=== PATIENT | male | born 1965 | race Caucasian/White ===

== ENCOUNTER 2021-12-11 07:04 | Emergency (ER) | payer BC, SELFPAY ==
[2021-12-11 07:36] VITALS: BP 171/100; PULSE 82; RESP 22; TEMP 36.6; O2SAT 99; BMI 23.0
[2021-12-11 08:30] LABS: PCR FLU A Negative PCR FLU A (Negative); PCR FLU B Negative PCR FLU B (Negative); PCR RSV Negative PCR RSV (Negative)
--- NOTE | 2021-12-11 08:37 | ED.SOB ---
HPI - SOB/Dyspnea General Time Seen by Provider: 08:38 Date Seen: 12/11/21 Chief Complaint: Shortness of Breath/Dyspnea Stated Complaint: Trouble breathing Time Seen by Provider: 12/11/21 08:37 Source: patient, RN notes reviewed and old records reviewed Mode of arrival: ambulatory Limitations: no limitations History of Present Illness HPI Narrative: Patient is a 56-year-old male with history of COPD and continued tobacco use who comes to the emergency room for evaluation regarding increasing shortness of breath and cough. Patient notes the onset of some shortness of breath on ThursdayDecember 08. On December 09 he started coughing. The cough has been fairly nonproductive at this point. He notes that he has developed a headache from coughing so much. But Tessalon Perles which she had at home seems to help. He has not developed any fevers. He feels like this is COPD. He did test negative for COVID on a home test yesterday. Patient denies vomiting diarrhea lower extremity edema or calf tenderness. Patient has been doing home nebulizers and made these have given him some transient relief. He works at [employer] Previous Rx's Medication Instructions Recorded budesonide 160 mcg-glycopyr 9 2 inh inhalation BID #10.7 grams 09/30/21 mcg-formot 4.8 mcg/actuation HFA inhaler (Breztri Aerosphere) albuterol sulfate 90 mcg/actuation 2 puff inhalation Q4H PRN COPD 12/05/21 aerosol inhaler #8.5 grams metoprolol succinate 100 mg 100 mg PO QDAY #90 tabs 12/05/21 tablet,extended release 24 hr azithromycin 250 mg tablet 250 mg PO DAILY #6 tabs 12/11/21 (Zithromax Z-Farzaneh) prednisone 20 mg tablet 20 mg PO BID 5 days #10 tabs 12/11/21 Allergies Allergy/AdvReac Type Severity Reaction Status Date / Time No Known Drug Allergies Allergy Verified 12/11/21 07:39 Review of Systems Status of ROS: Reports: 10 or more systems reviewed and unremarkable except as noted in History and below Const: Denies: fever or chills ENMT: Denies: throat pain or difficulty swallowing Cardio: Reports: shortness of breath with exertion; Denies: chest pain or swelling of feet/ankles Resp: Reports: shortness of breath and cough; Denies: wheezing GI: Denies: abdominal pain, nausea, vomiting, diarrhea or difficulty swallowing : Denies: painful urination Musculo: Denies: extremity swelling Integ/Breast: Denies: rash Neuro: Reports: headache Allergy/Immuno: Denies: wheezing [facility] Medical History COPD (chronic obstructive pulmonary disease) Exam Narrative: Exam Narrative: From 2019 clinic note:Medical Problems: Nephrolithiasis Alcohol abuse Rib fracture Dental abscess COPD (chronic obstructive pulmonary disease) Hypertension Left leg weakness Tension headache Paresthesia of both feet Generalized anxiety disorder Tobacco abuse Const: Vital Signs, click to edit/add: Vital Signs - 24 hr 12/11/21 07:36 Temperature 97.9 F Pulse Rate [Right Pulse Oximeter] 82 Respiratory Rate 22 Blood Pressure [Ri ght Upper Arm] 171/100 H Pulse Oximetry 99 Oxygen Delivery Me thod Room Air Patient is alert and oriented. Occasional cough. Oxygen saturation 99%. Nontoxic in appearance. Oral cavity with moist mucous membranes. Neck is supple without lymphadenopathy. Heart with regular rate and rhythm no murmur rub. Lungs sounds show some are somewhat diminished in the bases but there are no crackles. At this time or wheezing. Abdomen soft. Lower extremities without edema. Documenting provider has reviewed patient's vital signs: yes Course Course Hospital Course: Currently awaiting COVID PCR. If that is negative I have spoken to patient about antibiotics and steroids. Vital Signs Vital signs: Initial Vital Signs Temperature 97.9 F 12/11/21 07:36 Temperature Source Temporal Artery Scan 12/11/21 07:36 Pulse Rate 82 12/11/21 07:36 Respiratory Rate 22 12/11/21 07:36 Blood Pressure 171/100 H 12/11/21 07:36 Blood Pressure Mean 123 12/11/21 07:36 Blood Pressure Position Sitting 12/11/21 07:36 Pulse Oximetry 99 12/11/21 07:36 Oxygen Delivery Method 12/11/21 07:36 Vital Signs Temperature 97.9 F 12/11/21 07:36 Pulse Rate 82 12/11/21 07:36 Respiratory Rate 22 12/11/21 07:36 Blood Pressure 171/100 H 12/11/21 07:36 Pulse Oximetry 99 12/11/21 07:36 Oxygen Delivery Method 12/11/21 07:36 Temperature 97.9 F 12/11/21 07:36 Pulse Rate 82 12/11/21 07:36 Respiratory Rate 22 12/11/21 07:36 Blood Pressure 171/100 H 12/11/21 07:36 Pulse Oximetry 99 12/11/21 07:36 Oxygen Delivery Method 12/11/21 07:36 MDM - SOB/Dyspnea MDM Narrative Medical decision making narrative: 1. COPD exacerbation-COVID negative at this time. Will place patient on Z-Farzaneh as well as prednisone 20 mg p.o. b.i.d. x5 days. Continue to do home nebulizers. 2. Disposition- home in off work today. Note to allow him to return for tomorrow. Return to the emergency room for worsening symptoms. Medical Records Attestation: I reviewed the patient's medical records. Lab Data Attestation: I reviewed the patient's lab results. Labs: Lab Results 12/11/21 Range/Units 07:35 SARS-CoV-2 (PCR) Negative SARS-CoV-2 (Negative) Influenza Type A (PCR) Negative PCR FLU A (Negative) Influenza Type B (PCR) Negative PCR FLU B (Negative) RSV (PCR) Negative PCR RSV (Negative) Discharge Plan Discharge Clinical Impression: COPD exacerbation Patient Disposition: Home, Self-Care Condition: Unchanged Additional Instructions: Start antibiotic Zithromax today. Also start prednisone as your steroid. Continue nebulizers at home. No work today. A note provided allows you to go back to work tomorrow. Seek medical attention for worsening symptoms. Return to the ER as needed. Prescriptions: New azithromycin [Zithromax Z-Farzaneh] 250 mg tablet 250 mg PO DAILY Qty: 6 0RF Taper: Z-FARZANEH 500 mg Q24H for 1 Day and 0 Hour 250 mg Q24H for 4 Days and 0 Hour Rx Instructions: For 250 mg dose pack: take 500 mg today (day 1), then 250 mg for 4 days (days 2-5) prednisone 20 mg tablet 20 mg PO BID 5 Days Qty: 10 0RF No Action Shannoni Aerosphere 160-9-4.8 mcg/actuation HFA aerosol inhaler 2 inh inhalation BID Qty: 10.7 5RF metoprolol succinate 100 mg tablet extended release 24 hr 100 mg PO QDAY Qty: 90 0RF albuterol sulfate 90 mcg/actuation HFA aerosol inhaler 2 puff inhalation Q4H PRN (Reason: COPD) Qty: 8.5 0RF Stand Alone Forms: [facility] Info Instructions
[2021-12-11 08:47] LABS: SARS PCR* Negative SARS-CoV-2 (Negative)
--- OUTSIDE RECORDS SUMMARY | 2021-12-11 09:05 | XMS_ITS | Clinical Summary ---
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 Hypokalemia Calcium Citrate-Vitamin Take by mouth. 180 Tab 0 10/18/2015 Active D3 500 mg calcium -400 Take 2 tabs unit chewIndications: daily Decreased bone density triamcinolone 0.5% Apply topically 15 g 1 10/18/2015 Active (ARISTOCORT) 0.5 % to affected creamIndications: Skin area(s) 2 times rash daily. Use as needed on ankles. Do not use on face, axilla or groin. NebulizerIndications: Nebulizer, 1 Device 0 04/01/2016 Active COPD exacerbation (HC), disposable neb Simple chronic bronchitis kit x 4, (HC) reuseable neb kit x 1, mask x 1, filters x 1. Length of need: 99 months ibandronate (BONIVA) 150 Take 1 tablet 3 tablet 3 04/29/2016 Active mg tabletIndications: by mouth every Decreased bone density 4 weeks. Take on empty stomach with full glass of water. Do not lie down for 1 hr. albuterol-ipratropium Inhale 3 mL via 1 box 1 08/28/2016 Active (DUONEB) (2.5-0.5 mg) in a nebulizer 4 3 mL NEBULIZATION times daily if solutionIndications: COPD needed. exacerbation (HC) tiotropium (SPIRIVA) 18 Inhale 18 mcg 90 capsule 3 10/14/2016 Active mcg inhalation by mouth once capsuleIndications: daily. Chronic obstructive pulmonary disease, unspecified COPD type (HC) predniSONE (DELTASONE) 10 Take 2 tablets 6 tablet 0 8 Active mg tabletIndications: for 2 days then COPD exacerbation (HC) 1 tablet for 2 days. carvedilol (COREG) 6.25 Take 1 tablet 180 tablet 2 03/04/2017 Active mg tabletIndications: SOB (6.25) twice a (shortness of breath), day with food Other cardiomyopathy (HC) fluticasone Inhale 1 Puff 1 Inhaler 0 03/03/2017 Act christa furoate-vilanterol (BREO by mouth once ELLIPTA) 100-25 mcg/dose daily. inhalerIndications: Stage 3 severe COPD by GOLD classification (HC) cholecalciferol (VITAMIN Take 1 capsule 90 capsule 3 8 Active D) 1,000 unit by mouth once capsuleIndications: daily. Vitamin D deficiency buPROPion (WELLBUTRIN SR) TAKE 1 TABLET 60 tablet 1 04/21/2017 Active 150 mg Sustained-Release BY MOUTH DAILY tabletIndications: FOR 3 DAYS. Tobacco dependence INCREASE TO 2 TIMES DAILY. STOP SMOKING AFTER 1 WEEK predniSONE (DELTASONE) 20 Start 3 tabs 20 tablet 0 04/24/2017 Active mg tabletIndications: daily x 3 days, COPD exacerbation (HC) then 2 tab daily x 3 days then 1 tab daily x 3 days then 1/2 daily x 4 days. roflumilast (DALIRESP) Take 500 mcg by 90 tablet 3 06/02/2017 Active 500 mcg mouth once tabletIndications: COPD, daily. frequent exacerbations (HC) hydroCHLOROthiazide TAKE 1 TABLET 90 tablet 1 06/23/2017 Active (HCTZ) 25 mg BY MOUTH EVERY tabletIndications: DAY Hypertension predniSONE (DELTASONE) 20 3 tabs x 2 days 13 tablet 0 07/15/19 18 Active mg tabletIndications: then 2 tabs x 2 COPD exacerbation (HC) days then 1 tab x 2 days then 1/2 tab x 2 days. losartan (COZAAR) 25 mg Take 1 tablet 90 tablet 0 10/27/2017 Active tabletIndications: by mouth once Hypertension, unspecified daily. type busPIRone 7.5 mg TAKE 1 TABLET 180 tablet 0 01/05/2018 Active tabletIndications: BY MOUTH TWICE Anxiety DAILY VENTOLIN HFA 90 INHALE 2 PUFFS 18 g 3 01/05/2018 Active mcg/actuation BY MOUTH EVERY inhalerIndications: 4 HOURS Chronic obstructive NEEDED FOR pulmonary disease, SHORTNESS OF unspecified COPD type BREATH (HC) Active Problems Problem Noted Date Abnormal echocardiogram 11/03/2016 Overview: cardiomyopathy with EF 45-50% on echocar diogram 09/2016. Had cardiology consult, negative stress testing. Needs follow up with Cardiology with echocardiogram in 1 year. Fracture of rib 04/01/2016 Calculus of kidney 04/01/2016 Anxiety 07/10/2015 Alcohol abuse, in remission 06/08/2015 Hypertension 12/21/2012 COPD (chronic obstructive pulmonary disease) 3 Immunizations Name Administration Dates Next Due Influenza, IIV3 (Age >=3 years) 11/23/2012 Influenza, IIV4 11/05/2016, 10/18/2015, 11/30/2014, 01/09/2014 Pneumococcal Poly,23-Valent 11/15/2015 (Pneumovax) Pneumococcal conj 13-Valent (Prevnar 11/30/2014 13) Polio Virus, Unspecified 06/19/1978 Tdap 07/05/2013 Family History Medical History Relation Name Comments Cancer-breast Mother age 60 Hypertension Mother Relation Name Status Comments Mother Social History Tobacco Use Types Packs/Day Years Used Date Current Every Day Smoker Cigarettes 0.5 30 Smokeless Tobacco: Never Used Tobacco Cessation: Counseling Given: Yes Alcohol Use Standard Drinks/Week Comments No 0 (1 standard drink = 0.6 oz pure alcoho l) prior alcohol abuse, sober now Alcohol Habits Answer Date Recorded How often do you have a drink containing Not asked alcohol? How many drinks containing alcohol do Not asked you have on a typical day when you are drinking? How often do you have six or more drinks Not asked on one occasion? Comment: prior alcohol abuse, sober now 7 Sex Assigned at Date Recorded Not on file Obstetrics History Last Filed Vital Signs Vital Sign Reading Time Taken Comments Blood Pressure 122/80 06/02/2017 12:53 PM CDT Pulse 88 06/02/2017 12:53 PM CDT Temperature 36.5 ??C (97.7 ??F) 06/02/2017 12:53 PM CDT Respiratory Rate 18 10/14/2016 2:39 PM CDT Oxygen Saturation 96% 06/02/2017 12:53 PM CDT Inhaled Oxygen Concentration - - Weight 77.1 kg (170 lb) 06/02/2017 12:53 PM CDT Height 179.8 cm (5' 10.79) 03/18/2017 8:07 AM [facility] Body Mass Index 23.85 03/18/2017 8:07 AM N[facility] Plan of Treatment Health Maintenance Due Date Last Done Comments COVID-19 vaccine series (#1) 01/24/1966 Hepatitis C screening for age 0607/25/1984 18-79 Colonoscopy through age 75 07/26/2011 Zoster (shingles) series for age 0607/25/2016 50+ (1 of 2) Depression screening for age 12+ 11/05/2017 11/05/2016, 07/2015, 10/18/2015, Additional history exists BMI (ht and wt on same day) for 03/18/2018 03/18/2017, 12/11, age 18+ 11/05/2016, Additional history exists Influenza for age 50-64 10/10/2021 11/05/2016, 10/18/2015, 11/30/2014, Additional history exists Lipids for age 45-75 01/05/2022 01/05/2017, 01/28/2016, 03/08/2015, Additional history exists Tetanus booster 07/06/2023 07/05/2013, 05[facility]11/2007 [facility] Tdap Completed 07/05/2013 Results Not on filefrom Last 3 Months Insurance Payer Benefit Plan / Subscriber ID Effective Dates Phone Addre ss Type Group [employer]UE [employer] OF [id number] 2014-Present [address] [address] [place] [address] Justin Suarez Workers Comp Self 1965 [address] (Home) [place], [place] [phone] (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 Vlad Reyes MD Orthopedics Surgery - Orthopedic 11/02/12
== END 2021-12-11 09:12 | disposition home or self-care (01) ==
LOC: ED 09:03
PROVIDERS: Emergency Provider Family Medicine; PCP Family Medicine
DX: J44.1 Chronic obstructive pulmonary disease with (acute) exacerbation (principal); F17.200 Nicotine dependence, unspecified, uncomplicated; Z20.822 Contact with and (suspected) exposure to COVID-19
CPT/HCPCS: 87502; 87634; 87635; 99283

== ENCOUNTER 2022-01-08 07:31 | Emergency (ER) | payer BC, SELFPAY ==
[2022-01-08] VITALS (37 sets, daily range): BP systolic 110–182; BP diastolic 55–108; PULSE 62–86; RESP 35–37; TEMP 37.1; O2SAT 94–100; BMI 23.0
--- NOTE | 2022-01-08 07:56 | CRLHL7_ITS ---
For Patients: As a result of the Cures Act, medical imaging exams and procedure reports are released immediately into your electronic medical record. You may view this report before your referring provider. If you have questions, please contact your health care provider. INDICATION: COPD exacerbation. TECHNIQUE: Chest 2 views. COMPARISON: 05/02/2021. FINDINGS: Cardiovascular and mediastinum: Heart size and vasculature are normal in caliber and appearance. Lungs and pleural spaces: Lungs are hyperinflated but otherwise clear. No pleural effusion and no pneumothorax. Bones and soft tissues: No significant findings. IMPRESSION: Lung hyperinflation consistent with COPD. No sign of pneumonia or other acute abnormality. Dictated by Jose Manuel Hernandez MD @ 01/08/2022 8:38:02 AM (Electronically Signed)
--- NOTE | 2022-01-08 07:58 | ED_ITS ---
HPI - General Adult General Chief complaint: Shortness of Breath/Dyspnea Stated complaint: Trouble breathing, COPD history Time Seen by Provider: 01/08/22 07:53 Source: patient Mode of arrival: ambulatory Limitations: no limitations History of Present Illness HPI narrative: Justin is a 56-year-old male past medical history includes COPD, tobacco abuse, presents emerged department via private car with shortness of breath. Patient states he got up early this morning around 3:30 a.m., was outside taking his dog for walking he had increased difficulty with breathing, chest tightness, denies any chest pain, minor cough, has not had any fevers or chills or any sick contacts. He thought it got worse after he got exposed to cold went, he went to work this morning Rashid, co-worker noticed that he was having increased work of breathing, he was feeling lightheaded, and that his lungs hurt patient denies any cardiac history, no nausea vomiting, no diarrhea or abdominal pain, no myalgias arthralgias. He was here at the beginning the month for similar symptoms and COPD exacerbation, prior to this he has not had any difficulty over the last year. Related Data Home Medications Medication Instructions Recorded Confirmed aspirin 81 mg tablet,delayed 81 mg PO DAILY 01/17/22 02/06/22 release calcium citrate 200 mg 2 tab PO DAILY 01/17/22 02/06/22 calcium-vitamin D3 6.25 mcg (250 unit) tablet cholecalciferol (vitamin D3) 25 1,000 unit PO DAILY 01/17/22 02/06/22 mcg (1,000 unit) tablet hydrochlorothiazide 25 mg tablet 25 mg PO DAILY 01/17/22 02/06/22 prednisone 50 mg tablet 50 mg PO QDAY PRN 02/06/22 02/06/22 Previous Rx's Medication Instructions Recorded budesonide 160 mcg-glycopyr 9 2 inh inhalation BID #10.7 grams 09/30/21 mcg-formot 4.8 mcg/actuation HFA inhaler (Breztri Aerosphere) metoprolol succinate 100 mg 100 mg PO QDAY #90 tabs 12/05/21 tablet,extended release 24 hr albuterol sulfate 90 mcg/actuation 2 puff inhalation Q4H PRN COPD 01/08/22 aerosol inhaler #8.5 grams ipratropium 0.5 mg-albuterol 3 mg 3 ml inhalation TID #180 mL 01/17/22 (2.5 mg base)/3 mL nebulization soln tiotropium bromide 2.5 2 puff inhalation QAM #4 grams 01/17/22 mcg/actuation mist for inhalation (Spiriva Respimat) fluocinolone 0.01 % topical 1 applic topical BID #60 mL 01/21/22 solution clobetasol 0.05 % scalp solution 1 applic topical QDAY #50 mL 01/30/22 amoxicillin 875 mg tablet 875 mg PO BID #14 tabs 02/06/22 Allergies Allergy/AdvReac Type Severity Reaction Status Date / Time No Known Drug Allergies Allergy Unverified 02/06/22 09:37 Review of Systems Status of ROS: Reports: 10 or more systems reviewed and unremarkable except as noted in History and below [facility] Medical History (Updated 02/11/22 @ 01:49 by Los Flower MD) Alcohol abuse Calculus of kidney Community acquired pneumonia COPD (chronic obstructive pulmonary disease) Dental abscess Fracture of rib Generalized anxiety disorder (07/10/15) Hypertension Paresthesia of both feet Scalp psoriasis Tension headache Tobacco abuse Social History (Updated 02/11/22 @ 01:50 by Los Flower MD) Narrative: Smoker Smoking Status: Current every day smoker What tobacco products do you use: cigarettes Smoking packs per day: 0.5 Smoking cigarettes per day: 10.0 Years smoked: 20 Smoking pack-years: 10.00 Do you use any of these nicotine containing products: None Second hand tobacco smoke exposure: No How often do you have a drink containing alcohol: 2-4 times a month How many standard drinks containing alcohol do you have on a typical day: 5 or 6 How often do you have six or more drinks on one occasion: Weekly AUDIT-C Alcohol total score: 7 Non-prescribed substance use: denies use Little interest or pleasure in doing things: not at all Feeling down, depressed, or hopeless: not at all service: No Exam Narrative: Exam Narrative: General: No obvious distress, sitting comfortably, nontoxic in appearance HEENT: Tympanic membranes within normal limits, oropharynx clear moist Neck: Supple full range of motion Lungs: Diminished breath sounds throughout, mild expiratory wheezes throughout all lung wang, tachypnea noted Heart: Normal sinus rhythm, S1-S2 Abdomen: Soft nontender, bowel sounds present Muscle skeletal: No lower extremity edema, +5 strength upper lower extremities :Neuro alert awake and oriented x3 Const: Vital Signs, click to edit/add: Vital Signs - 24 hr 01/08/22 07:38 Temperature 98.8 F Pulse Rate [Apical ] 75 Respiratory Rate 37 H Blood Pressure [Ri ght Upper Arm] 123/83 Pulse Oximetry 98 Oxygen Delivery Me thod Room Air Course Course Hospital Course: 7:45 AM: AIDET performed. Workup will include IM dose Decadron 10 mg, will give him a DuoNeb breathing treatment, will obtain basic labs CBC, CMP, point of care troponin, COVID/influenza/RSV nasal pharyngeal swab, EKG and two view chest x- ray, suspect COPD exacerbation, likely discharge with steroid burst give or take antibiotics based on his lab and imaging results. Dr. Hoffman to follow up on lab and imaging results. Vital Signs Vital signs: Initial Vital Signs Temperature 98.8 F 01/08/22 07:38 Temperature Source Temporal Artery Scan 01/08/22 07:38 Pulse Rate 75 01/08/22 07:38 Pulse Rhythm 01/08/22 07:38 Respiratory Rate 37 H 01/08/22 07:38 Blood Pressure 123/83 01/08/22 07:38 Blood Pressure Mean 96 01/08/22 07:38 Blood Pressure Position Supine 01/08/22 07:38 Pulse Oximetry 98 01/08/22 07:38 Oxygen Delivery Method 01/08/22 07:38 Vital Signs Temperature 98.8 F 01/08/22 07:38 Pulse Rate 75 01/08/22 07:38 Respiratory Rate 37 H 01/08/22 07:38 Blood Pressure 123/83 01/08/22 07:38 Pulse Oximetry 98 01/08/22 07:38 Oxygen Delivery Method 01/08/22 07:38 Temperature 98.8 F 01/08/22 07:38 Pulse Rate 74 01/08/22 10:46 Respiratory Rate 35 H 01/08/22 08:00 Blood Pressure 126/86 01/08/22 10:46 Pulse Oximetry 98 01/08/22 10:46 Oxygen Delivery Method 01/08/22 08:00 Medical Decision Making Lab Data Labs: Lab Results 01/08/22 01/08/22 01/08/22 Range/Units 07:48 08:25 08:25 WBC 8.54 (4.50-11.00) K/uL RBC 4.13 L (4.30-5.90) m/uL Hgb 13.4 L (13.5-17.5) gm/dL Hct 38.5 (37.0-53.0) % MCV 93 (80-100) fL MCH 32 (26-34) pg MCHC 35 (32-36) gm/dL RDW Coeff of Lidia 12.9 (11.5-15.5) % Plt Count 153 (140-440) K/uL Neut % (Auto) 78.8 H (42.0-72.0) % Lymph % (Auto) 11.4 L (20-44) % [place] % (Auto) 8.0 (0.0-11.0) % Eos % (Auto) 1.2 (0.0-7.0) % Baso % (Auto) 0.4 (0.0-3.0) % Neut # (Auto) 6.70 (1.7-7.0) K/uL Lymph # (Auto) 1.00 (0.90-2.90) K/uL [place] # (Auto) 0.70 (0.00-0.90) K/UL Eos # (Auto) 0.10 (0.00-0.50) K/uL Baso # (Auto) 0.03 (0.00-0.30) K/uL Abs Immat Gran (auto) 0.02 (0.00-0.30) K/uL Imm/Tot Granulo (auto) 0.2 % Sodium 139 (135-149) mmol/L Potassium 3.2 L (3.6-5.1) mmol/L Chloride 104 (96-114) mmol/L Carbon Dioxide 25 (20-32) mmol/L BUN 22 (7-30) mg/dL Creatinine 1.1 (0.5-1.5) mg/dL Estimated Creat Clear 80.32 Estimated GFR 79 ml/min Glucose 105 (60-115) mg/dL Calcium 9.0 (8.4-10.6) mg/dL Total Bilirubin 0.9 (0.1-1.5) mg/dL AST 51 H (12-35) U/L ALT 52 H (4-50) U/L Alkaline Phosphatase 83 (40-150) U/L Troponin I (0.01-0.04) ng/mL Total Protein 7.5 (6.0-8.3) g/dL Albumin 4.6 (3.3-5.0) g/dL SARS-CoV-2 (PCR) Negative SARS-CoV-2 (Negative) Influenza Type A (PCR) Negative PCR FLU A (Negative) Influenza Type B (PCR) Negative PCR FLU B (Negative) RSV (PCR) Negative PCR RSV (Negative) 01/08/22 01/08/22 Range/Units 08:25 09:49 WBC (4.50-11.00) K/uL RBC (4.30-5.90) m/uL Hgb (13.5-17.5) gm/dL Hct (37.0-53.0) % MCV (80-100) fL MCH (26-34) pg MCHC (32-36) gm/dL RDW Coeff of Lidia (11.5-15.5) % Plt Count (140-440) K/uL Neut % (Auto) (42.0-72.0) % Lymph % (Auto) (20-44) % [place] % (Auto) (0.0-11.0) % Eos % (Auto) (0.0-7.0) % Baso % (Auto) (0.0-3.0) % Neut # (Auto) (1.7-7.0) K/uL Lymph # (Auto) (0.90-2.90) K/uL [place] # (Auto) (0.00-0.90) K/UL Eos # (Auto) (0.00-0.50) K/uL Baso # (Auto) (0.00-0.30) K/uL Abs Immat Gran (auto) (0.00-0.30) K/uL Imm/Tot Granulo (auto) % Sodium (135-149) mmol/L Potassium (3.6-5.1) mmol/L Chloride (96-114) mmol/L Carbon Dioxide (20-32) mmol/L BUN (7-30) mg/dL Creatinine (0.5-1.5) mg/dL Estimated Creat Clear Estimated GFR ml/min Glucose (60-115) mg/dL Calcium (8.4-10.6) mg/dL Total Bilirubin (0.1-1.5) mg/dL AST (12-35) U/L ALT (4-50) U/L Alkaline Phosphatase (40-150) U/L Troponin I 0.01 0.01 (0.01-0.04) ng/mL Total Protein (6.0-8.3) g/dL Albumin (3.3-5.0) g/dL SARS-CoV-2 (PCR) (Negative) Influenza Type A (PCR) (Negative) Influenza Type B (PCR) (Negative) RSV (PCR) (Negative) Discharge Plan Discharge Clinical Impression: COPD (chronic obstructive pulmonary disease) Patient Disposition: Home, Self-Care Condition: Improved Additional Instructions: REST, LIGHT ACTIVITY, FLUIDS, CONTINUE HOME MEDS. UPDATE PRIMARY CARE IN THE NEXT 48 HOURS. RETURN TO ED SOONER PROBLEMS OR CONCERNS Off work for 2 days Activity Level: Light activity Discharge Diet: Regular Prescriptions: No Action calcium citrate-vitamin D3 200 mg-6.25 mcg (250 unit) tablet 2 tab PO DAILY cholecalciferol (vitamin D3) 25 mcg (1,000 unit) tablet 1,000 unit PO DAILY aspirin 81 mg tablet,delayed release (DR/EC) 81 mg PO DAILY hydrochlorothiazide 25 mg tablet 25 mg PO DAILY Spiriva Respimat 2.5 mcg/actuation mist 2 puff inhalation QAM Qty: 4 5RF ipratropium-albuterol 0.5 mg-3 mg(2.5 mg base)/3 mL solution for nebulization 3 ml inhalation TID Qty: 180 3RF prednisone 50 mg tablet 50 mg PO QDAY PRN amoxicillin 875 mg tablet 875 mg PO BID Qty: 14 0RF Breztri Aerosphere 160-9-4.8 mcg/actuation HFA aerosol inhaler 2 inh inhalation BID Qty: 10.7 5RF metoprolol succinate 100 mg tablet extended release 24 hr 100 mg PO QDAY Qty: 90 0RF albuterol sulfate 90 mcg/actuation HFA aerosol inhaler 2 puff inhalation Q4H PRN (Reason: COPD) Qty: 8.5 2RF fluocinolone 0.01 % solution 1 applic topical BID Qty: 60 2RF clobetasol 0.05 % solution 1 applic topical QDAY Qty: 50 5RF Follow Up/Referrals: Los Flower MD [Primary Care Provider] - Stand Alone Forms: MyHealth Info Instructions
[2022-01-08] MEDS: dexAMETHasone 10 MG/ML inj IM (08:12)
[2022-01-08] MEDS: IPRAT-ALBUT 0.5-2.5 MG/3 ML NEB 1 NEB IH (08:13)
[2022-01-08 08:36] LABS: PCR FLU A Negative PCR FLU A (Negative); PCR FLU B Negative PCR FLU B (Negative); PCR RSV Negative PCR RSV (Negative)
[2022-01-08 08:38] LABS: SARS PCR* Negative SARS-CoV-2 (Negative)
[2022-01-08 08:39] LABS: Basophils Absolute Auto 0.03 K/uL (0.00-0.30); Basophils Percent Auto 0.4 % (0.0-3.0); Eosinophils Percent Auto 1.2 % (0.0-7.0); Hematocrit 38.5 % (37.0-53.0); Hemoglobin* 13.4 gm/dL (13.5-17.5); Immature Granulocytes Abs Auto 0.02 K/uL (0.00-0.30); Immature Granulocytes Pct Auto 0.2 %; Lymphocytes Percent Auto 11.4 % (20-44); Mean Corpuscular HGB Conc 35 gm/dL (32-36); Mean Corpuscular Hemoglobin 32 pg (26-34); Mean Corpuscular Volume 93 fL (80-100); Neutrophils Percent Auto 78.8 % (42.0-72.0); Platelet Count* 153 K/uL (140-440); RDW Coefficient of Variation % 12.9 % (11.5-15.5); Red Blood Count 4.13 m/uL (4.30-5.90); White Blood Count* 8.54 K/uL (4.50-11.00)
[2022-01-08 08:40] LABS: Slide Review Reflex No
[2022-01-08 08:52] LABS: Albumin* 4.6 g/dL (3.3-5.0); Chloride* 104 mmol/L (96-114); Sodium* 139 mmol/L (135-149)
[2022-01-08 08:53] LABS: Potassium* 3.2 mmol/L (3.6-5.1)
[2022-01-08 08:55] LABS: Alkaline Phosphatase* 83 U/L (40-150); Aspartate Amino Transferase* 51 U/L (12-35); Bilirubin Total* 0.9 mg/dL (0.1-1.5); Blood Urea Nitrogen* 22 mg/dL (7-30); Carbon Dioxide* 25 mmol/L (20-32); Creatinine* 1.1 mg/dL (0.5-1.5); Est. Creatinine Clearance* 80.32; Estimated Glomerular Filt Rate 79 ml/min; Total Protein* 7.5 g/dL (6.0-8.3)
[2022-01-08 08:56] LABS: Alanine Aminotransferase* 52 U/L (4-50); Glucose* 105 mg/dL (60-115)
[2022-01-08 09:08] LABS: Troponin I* 0.01 ng/mL (0.01-0.04)
--- OUTSIDE RECORDS SUMMARY | 2022-01-08 09:15 | XMS_ITS | Clinical Summary ---
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 Body Mass Index 23.85 03/18/2017 8:07 AM SHEET TESTER Plan of Treatment Health Maintenance Due Date Last Done Comments COVID-19 vaccine series (#1) 01/24/1967 HIV for age 15-65 1981 Hepatitis C screening for age 0607/25/1984 18-79 [...] booster 07/06/2023 07/05/2013, [facility]11[facility] Tdap Completed 07/05/2013 Results Not on filefrom Last 3 Months Insurance Payer Benefit Plan / Subscriber ID Effective Dates Phone Addre ss Type Group BLUE [employer]OSS BL[employer] OF [id number] 2014-Present [address] [address] [place] [address] Justin Suarez Workers Comp Self 1965 [address] (Home) [place], [place] [phone] (Work) 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 Vlad Reyes MD Orthopedics Surgery - Orthopedic 11/02/12
[2022-01-08 10:28] LABS: Troponin I* 0.01 ng/mL (0.01-0.04)
--- NOTE | 2022-01-08 10:48 | ED.GENADULT ---
HPI - General Adult General Time Seen by Provider: 10:48 Date Seen: 01/08/22 Chief complaint: Shortness of Breath/Dyspnea Stated complaint: Trouble breathing, COPD history Time Seen by Provider: 01/08/22 07:53 Source: patient Mode of arrival: ambulatory Limitations: no limitations Related Data Previous Rx's Medication Instructions Recorded budesonide 160 mcg-glycopyr 9 2 inh inhalation BID #10.7 grams 09/30/21 mcg-formot 4.8 mcg/actuation HFA inhaler (Breztri Aerosphere) metoprolol succinate 100 mg 100 mg PO QDAY #90 tabs 12/05/21 tablet,extended release 24 hr azithromycin 250 mg tablet 250 mg PO DAILY #6 tabs 12/11/21 (Zithromax Z-Ramesh) prednisone 20 mg tablet 20 mg PO BID 5 days #10 tabs 12/11/21 albuterol sulfate 90 mcg/actuation 2 puff inhalation Q4H PRN COPD 01/08/22 aerosol inhaler #8.5 grams Allergies Allergy/AdvReac Type Severity Reaction Status Date / Time No Known Drug Allergies Allergy Verified 01/08/22 07:38 [facility] Medical History COPD (chronic obstructive pulmonary disease) Social History Smoking Status: Current every day smoker What tobacco products do you use: cigarettes Smoking packs per day: 0.5 Smoking cigarettes per day: 10.0 Years smoked: 20 Smoking pack-years: 10.00 Do you use any of these nicotine containing products: None Second hand tobacco smoke exposure: No How often do you have a drink containing alcohol: 2-4 times a month How many standard drinks containing alcohol do you have on a typical day: 5 or 6 How often do you have six or more drinks on one occasion: Weekly AUDIT-C Alcohol total score: 7 Non-prescribed substance use: denies use service: No Exam Const: Vital Signs, click to edit/add: Vital Signs - 24 hr 01/08/22 07:38 01/08/22 08:00 Temperature 98.8 F Pulse Rate [Apical ] 75 73 Respiratory Rate 37 H 35 H Blood Pressure [Ri ght Upper Arm] 123/83 182/90 H Pulse Oximetry 98 96 Oxygen Delivery Me thod Room Air Room Air Course Course Hospital Course: 7:45 AM: AIDET performed. Workup will include IM dose Decadron 10 mg, will give him a DuoNeb breathing treatment, will obtain basic labs CBC, CMP, point of care troponin, COVID/influenza/RSV nasal pharyngeal swab, EKG and two view chest x-ray, suspect COPD exacerbation, likely discharge with steroid burst give or take antibiotics based on his lab and imaging results. Dr. Hoffman to follow up on lab and imaging results. Vital Signs Vital signs: Initial Vital Signs Temperature 98.8 F 01/08/22 07:38 Temperature Source Temporal Artery Scan 01/08/22 07:38 Pulse Rate 75 01/08/22 07:38 Pulse Rhythm 01/08/22 07:38 Respiratory Rate 37 H 01/08/22 07:38 Blood Pressure 123/83 01/08/22 07:38 Blood Pressure Mean 96 01/08/22 07:38 Blood Pressure Position Supine 01/08/22 07:38 Pulse Oximetry 98 01/08/22 07:38 Oxygen Delivery Method 01/08/22 07:38 Vital Signs Temperature 98.8 F 01/08/22 07:38 Pulse Rate 75 01/08/22 07:38 Respiratory Rate 37 H 01/08/22 07:38 Blood Pressure 123/83 01/08/22 07:38 Pulse Oximetry 98 01/08/22 07:38 Oxygen Delivery Method 01/08/22 07:38 Temperature 98.8 F 01/08/22 07:38 Pulse Rate 74 01/08/22 10:46 Respiratory Rate 35 H 01/08/22 08:00 Blood Pressure 126/86 01/08/22 10:46 Pulse Oximetry 98 01/08/22 10:46 Oxygen Delivery Method 01/08/22 08:00 Medical Decision Making MDM Narrative Medical decision making narrative: Addendum: Please see Dr. Luis lugo initial notes Derrick klein feels markedly better after his dexamethasone and albuterol neb. He continues to have a good O2 sat. He has negative viral studies, negative troponin x2 EKG by my read shows no ischemic change normal sinus rhythm. His chest x-ray looks unremarka . His troponins are negative, EKGs are reassuring, and he feels better. Allow home rest light activity off work for 2 days. Return to proceed primary care at that time, return to ED sooner as needed. Lab Data Labs: Lab Results 01/08/22 01/08/22 01/08/22 Range/Units 07:48 08:25 08:25 WBC 8.54 (4.50-11.00) K/uL RBC 4.13 L (4.30-5.90) m/uL Hgb 13.4 L (13.5-17.5) gm/dL Hct 38.5 (37.0-53.0) % MCV 93 (80-100) fL MCH 32 (26-34) pg MCHC 35 (32-36) gm/dL RDW Coeff of Lidia 12.9 (11.5-15.5) % Plt Count 153 (140-440) K/uL Neut % (Auto) 78.8 H (42.0-72.0) % Lymph % (Auto) 11.4 L (20-44) % [place] % (Auto) 8.0 (0.0-11.0) % Eos % (Auto) 1.2 (0.0-7.0) % Baso % (Auto) 0.4 (0.0-3.0) % Neut # (Auto) 6.70 (1.7-7.0) K/uL Lymph # (Auto) 1.00 (0.90-2.90) K/uL [place] # (Auto) 0.70 (0.00-0.90) K/UL Eos # (Auto) 0.10 (0.00-0.50) K/uL Baso # (Auto) 0.03 (0.00-0.30) K/uL Abs Immat Gran (auto) 0.02 (0.00-0.30) K/uL Imm/Tot Granulo (auto) 0.2 % Sodium 139 (135-149) mmol/L Potassium 3.2 L (3.6-5.1) mmol/L Chloride 104 (96-114) mmol/L Carbon Dioxide 25 (20-32) mmol/L BUN 22 (7-30) mg/dL Creatinine 1.1 (0.5-1.5) mg/dL Estimated Creat Clear 80.32 Estimated GFR 79 ml/min Glucose 105 (60-115) mg/dL Calcium 9.0 (8.4-10.6) mg/dL Total Bilirubin 0.9 (0.1-1.5) mg/dL AST 51 H (12-35) U/L ALT 52 H (4-50) U/L Alkaline Phosphatase 83 (40-150) U/L Troponin I (0.01-0.04) ng/mL Total Protein 7.5 (6.0-8.3) g/dL Albumin 4.6 (3.3-5.0) g/dL SARS-CoV-2 (PCR) Negative SARS-CoV-2 (Negative) Influenza Type A (PCR) Negative PCR FLU A (Negative) Influenza Type B (PCR) Negative PCR FLU B (Negative) RSV (PCR) Negative PCR RSV (Negative) 01/08/22 01/08/22 Range/Units 08:25 09:49 WBC (4.50-11.00) K/uL RBC (4.30-5.90) m/uL Hgb (13.5-17.5) gm/dL Hct (37.0-53.0) % MCV (80-100) fL MCH (26-34) pg MCHC (32-36) gm/dL RDW Coeff of Lidia (11.5-15.5) % Plt Count (140-440) K/uL Neut % (Auto) (42.0-72.0) % Lymph % (Auto) (20-44) % [place] % (Auto) (0.0-11.0) % Eos % (Auto) (0.0-7.0) % Baso % (Auto) (0.0-3.0) % Neut # (Auto) (1.7-7.0) K/uL Lymph # (Auto) (0.90-2.90) K/uL [place] # (Auto) (0.00-0.90) K/UL Eos # (Auto) (0.00-0.50) K/uL Baso # (Auto) (0.00-0.30) K/uL Abs Immat Gran (auto) (0.00-0.30) K/uL Imm/Tot Granulo (auto) % Sodium (135-149) mmol/L Potassium (3.6-5.1) mmol/L Chloride (96-114) mmol/L Carbon Dioxide (20-32) mmol/L BUN (7-30) mg/dL Creatinine (0.5-1.5) mg/dL Estimated Creat Clear Estimated GFR ml/min Glucose (60-115) mg/dL Calcium (8.4-10.6) mg/dL Total Bilirubin (0.1-1.5) mg/dL AST (12-35) U/L ALT (4-50) U/L Alkaline Phosphatase (40-150) U/L Troponin I 0.01 0.01 (0.01-0.04) ng/mL Total Protein (6.0-8.3) g/dL Albumin (3.3-5.0) g/dL SARS-CoV-2 (PCR) (Negative) Influenza Type A (PCR) (Negative) Influenza Type B (PCR) (Negative) RSV (PCR) (Negative) Discharge Plan Discharge Clinical Impression: COPD (chronic obstructive pulmonary disease) Patient Disposition: Home, Self-Care Condition: Improved Additional Instructions: REST, LIGHT ACTIVITY, FLUIDS, CONTINUE HOME MEDS. UPDATE PRIMARY CARE IN THE NEXT 48 HOURS. RETURN TO ED SOONER PROBLEMS OR CONCERNS Off work for 2 days Activity Level: Light activity Discharge Diet: Regular Prescriptions: No Action azithromycin [Zithromax Z-Ramesh] 250 mg tablet 250 mg PO DAILY Qty: 6 0RF Taper: Z-RAMESH 500 mg Q24H for 1 Day and 0 Hour 250 mg Q24H for 4 Days and 0 Hour Rx Instructions: For 250 mg dose pack: take 500 mg today (day 1), then 250 mg for 4 days (days 2-5) prednisone 20 mg tablet 20 mg PO BID 5 Days Qty: 10 0RF Breztri Aerosphere 160-9-4.8 mcg/actuation HFA aerosol inhaler 2 inh inhalation BID Qty: 10.7 5RF metoprolol succinate 100 mg tablet extended release 24 hr 100 mg PO QDAY Qty: 90 0RF albuterol sulfate 90 mcg/actuation HFA aerosol inhaler 2 puff inhalation Q4H PRN (Reason: COPD) Qty: 8.5 2RF Follow Up/Referrals: Los Flower MD [Primary Care Provider] - Stand Alone Forms: [employer] Info Instructions
== END 2022-01-08 11:00 | disposition home or self-care (01) ==
LOC: ED 09:13
PROVIDERS: Student in an Organized Health Care Education/Training Program; Emergency Provider Family Medicine; PCP Family Medicine
DX: J44.9 Chronic obstructive pulmonary disease, unspecified (principal)
CPT/HCPCS: 36415; 71046; 80053; 84484; 85025; 87502; 87634; 87635; 93005; 94640; 96372; 99283; 99284; J1100

== ENCOUNTER 2022-09-02 11:05 | Emergency (ER) | payer BC, SELFPAY ==
[2022-09-02 11:15] VITALS: BP 172/116; PULSE 92; RESP 22; TEMP 36.9; O2SAT 97; BMI 22.7
--- NOTE | 2022-09-02 11:30 | ED_ITS ---
HPI - Extremity Injury (Upper) General Time Seen by Provider: 11:30 Date Seen: 09/02/22 Chief Complaint: Extremity Pain/Injury, Upper Stated Complaint: Swollen R hand Time Seen by Provider: 09/02/22 11:09 Source: patient and RN notes reviewed Mode of arrival: ambulatory Limitations: no limitations History of Present Illness HPI narrative: Patient is a 57-year-old male coming in with complaint of ongoing right hand pain, wonders if he broke something. He accidentally hit his hand on a door knob hard on Thursday night, today is Thursday morning. He is continuing to have pain and swelling on the backside of his hand, hurts into his right 2nd finger. No numbness or tingling. Does not go into the wrist or forearm. He points to the dorsum of his hand where the pain is at. MD complaint: injury to: right and hand Onset (ago): day(s) Other injuries: none Related Data Home Medications Medication Instructions Recorded Confirmed aspirin 81 mg tablet,delayed 81 mg PO DAILY 01/17/22 09/02/22 release calcium citrate 200 mg 2 tab PO DAILY 01/17/22 09/02/22 calcium-vitamin D3 6.25 mcg (250 unit) tablet hydrochlorothiazide 25 mg tablet 25 mg PO DAILY 01/17/22 09/02/22 methotrexate sodium 2.5 mg tablet 15 mg PO 09/02/22 Previous Rx's Medication Instructions Recorded metoprolol succinate 100 mg 100 mg PO QDAY #90 tabs 12/05/21 tablet,extended release 24 hr ipratropium 0.5 mg-albuterol 3 mg 3 ml inhalation TID #180 mL 01/17/22 (2.5 mg base)/3 mL nebulization soln bupropion HCl 300 mg 24 hr tablet, 300 mg PO QAM #30 tabs 03/14/22 extended release (Wellbutrin XL) folic acid 1 mg tablet 1 mg PO QDAY #90 tabs 03/14/22 albuterol sulfate 90 mcg/actuation 2 puff inhalation Q4H PRN COPD 07/31/22 aerosol inhaler #8.5 grams budesonide 160 mcg-glycopyr 9 2 inh inhalation BID #10.7 grams 08/07/22 mcg-formot 4.8 mcg/actuation HFA inhaler (Breztri Aerosphere) tiotropium bromide 2.5 2 puff inhalation QAM #4 grams 08/07/22 mcg/actuation mist for inhalation (Spiriva Respimat) Allergies Allergy/AdvReac Type Severity Reaction Status Date / Time No Known Drug Allergies Allergy Verified 09/02/22 11:22 Review of Systems Narrative: As per HPI [facility] Medical History Psoriasis ?L40.9 - Psoriasis, unspecified (ICD-10) Scalp psoriasis ?L40.9 - Psoriasis, unspecified (ICD-10) Tobacco abuse ?Z72.0 - Tobacco use (ICD-10) Tension headache ?G44.209 - Tension-type headache, unspecified, not intractable (ICD-10) Paresthesia of both feet ?R20.2 - Paresthesia of skin (ICD-10) Generalized anxiety disorder (07/10/15) ?F41.1 - Generalized anxiety disorder (ICD-10) Fracture of rib ?S22.39XA - Fracture of one rib, unspecified side, initial encounter for closed fracture (ICD-10) Dental abscess ?K04.7 - Periapical abscess without sinus (ICD-10) Community acquired pneumonia ?J18.9 - Pneumonia, unspecified organism (ICD-10) Calculus of kidney ?N20.0 - Calculus of kidney (ICD-10) Alcohol abuse ?F10.10 - Alcohol abuse, uncomplicated (ICD-10) Hypertension ?I10 - Essential (primary) hypertension (ICD-10) COPD (chronic obstructive pulmonary disease) ?J44.9 - Chronic obstructive pulmonary disease, unspecified (ICD-10) Social History Narrative: Smoker What is your current living situation?: I presently have a place to live Problems where you live: no known problems In the past 12 months, utilities in danger of being shut off: no In the past 12 mos, have been you worried that your food would run out before you had money to buy more?: never true In the past 12 mos, the food you bought just didn't last and you didn't have money to buy more?: never true Smoking Status: Current every day smoker What tobacco products do you use: cigarettes Smoking packs per day: 0.5 Smoking cigarettes per day: 10.0 Years smoked: 20 Smoking pack-years: 10.00 Do you use any of these nicotine containing products: None Second hand tobacco smoke exposure: No How often do you have a drink containing alcohol: 2-4 times a month How many standard drinks containing alcohol do you have on a typical day: 5 or 6 How often do you have six or more drinks on one occasion: Weekly AUDIT-C Alcohol total score: 7 Non-prescribed substance use: denies use How often does anyone, including family, friends and others, physically hurt you : never How often does anyone, including family, friends and others, insult or talk down to you: never How often does anyone, including family, friends and others, threaten you with harm: never How often does anyone, including family, friends and others, scream or curse at you: never Little interest or pleasure in doing things: not at all Feeling down, depressed, or hopeless: not at all service: No Exam Const: Vital Signs, click to edit/add: Vital Signs - 24 hr 09/02/22 11:15 Temperature 98.5 F Pulse Rate [Left P ulse Oximeter] 92 Respiratory Rate 22 Blood Pressure [Le ft Upper Arm] 172/116 H Pulse Oximetry 97 Oxygen Delivery Me thod Room Air Documenting provider has reviewed patient's vital signs: yes Other: Patient is a very pleasant 57-year-old male seen in exam room 4. He indeed does have some mild soft tissue swelling over the dorsum of his right hand in comparison to his left. He can fully extend and flex all fingers of this hand. However, he states there is pain in the index finger on range of motion into the hand. He demonstrates normal warmth of this hand, normal cap refill, normal distal sensation. He has tenderness somewhat diffusely over the dorsum of the hand over the 2nd 3rd 4th metacarpals. There is no wrist tenderness on palpation, no snuffbox tenderness, no tenderness over his 1st metacarpal in this hand. No deformities or significant tenderness of the fingers noted. There is no overlapping on closure of the fingers. Course Course Hospital Course: We will obtain imaging with x-ray of the hand to rule out underlying fracture. It does sound that this was traumatic in nature and started after hitting his hand. I do supposed erratically that there could be a psoriatic arthritis involvement but seems unlikely if he has never had it before and this started after trauma. Reevaluation(s) Time of Reevaluation #1: 12:42 Reevaluation #1: Reviewed with patient that we are not seeing any fracture on films. There is arthritis at the 1st CMC joint, repeated exam and not clinically tender there. Discussed possibility of psoriatic arthritis flare, discussed trial NSAIDs vs prednisone. Patient opts for prednisone after discussion. We will provide wrist splint for comfort. Vital Signs Vital signs: Initial Vital Signs Temperature 98.5 F 09/02/22 11:15 Temperature Source Temporal Artery Scan 09/02/22 11:15 Pulse Rate 92 09/02/22 11:15 Pulse Rhythm Regular 09/02/22 11:15 Respiratory Rate 22 09/02/22 11:15 Blood Pressure 172/116 H 09/02/22 11:15 Blood Pressure Mean 134 H 09/02/22 11:15 Pulse Oximetry 97 09/02/22 11:15 Oxygen Delivery Method Room Air 09/02/22 11:15 Vital Signs Temperature 98.5 F 09/02/22 11:15 Pulse Rate 92 09/02/22 11:15 Respiratory Rate 22 09/02/22 11:15 Blood Pressure 172/116 H 09/02/22 11:15 Pulse Oximetry 97 09/02/22 11:15 Oxygen Delivery Method Room Air 09/02/22 11:15 Temperature 98.5 F 09/02/22 11:15 Pulse Rate 92 09/02/22 11:15 Respiratory Rate 22 09/02/22 11:15 Blood Pressure 172/116 H 09/02/22 11:15 Pulse Oximetry 97 09/02/22 11:15 Oxygen Delivery Method Room Air 09/02/22 11:15 MDM - Extremity Injury (Upper) Differential Diagnosis Differential diagnosis: Likely finger sprain and fracture of hand Imaging Data XR right hand: Attestation: I have reviewed the pertinent imaging results. My impression: I see no evidence of fracture. Await Radiology over-read, some area of degenerative change noted. Radiologist's impression: Patient: ALEXIS MENDOZA Facility:?[facility] Patient ID:?[id number] Site Patient ID:?[id number]. Site :?[id number] Study:?XRay Extremity Right HAND-09/02/2022 12:23:59 PM Ordering Physician:Ernst Salazar Final Report: Indication: Swelling, injury 4 days prior Technique: Right hand 3 views. Comparison: None Findings: Narrowing and spurring are present at the 1st carpometacarpal joint. Osteopenia. No acute or subacute fracture. Soft tissue swelling. Impression: No evidence of fracture. Dictated by Los Pierson MD @ 09/02/2022 12:33:40 PM (Electronic Signature) Critical Care Time Critical Care Time Critical Care Time: No Discharge Plan Discharge Clinical Impression: Hand pain, right Patient Disposition: Home, Self-Care Condition: Stable Instructions: Arthralgia (ED), Arthritis (ED) Additional Instructions: Try prednisone and take as prescribed, take with food to help protect your stomach. Can use Tylenol 1000mg 3x/day baseline for pain; can use ibuprofen sparingly while on the prednisone. Use wrist splint as needed for comfort. Follow up with Dr. Flower within the next 1-2 weeks for re-evaluation. This could simply be soft tissue injury to back of hand but I do suspect that there could be psoriatic arthritis flare. There is certainly regular arthritis seen at the base of the thumb/hand but you are not clinically tender there today. Prescriptions: No Action Breztri Aerosphere 160-9-4.8 mcg/actuation HFA aerosol inhaler 2 inh inhalation BID Qty: 10.7 5RF Spiriva Respimat 2.5 mcg/actuation mist 2 puff inhalation QAM Qty: 4 5RF calcium citrate-vitamin D3 200 mg-6.25 mcg (250 unit) tablet 2 tab PO DAILY aspirin 81 mg tablet,delayed release (DR/EC) 81 mg PO DAILY hydrochlorothiazide 25 mg tablet 25 mg PO DAILY ipratropium-albuterol 0.5 mg-3 mg(2.5 mg base)/3 mL solution for nebulization 3 ml inhalation TID Qty: 180 3RF bupropion HCl [Wellbutrin XL] 300 mg tablet extended release 24 hr 300 mg PO QAM Qty: 30 5RF folic acid 1 mg tablet 1 mg PO QDAY Qty: 90 3RF methotrexate sodium 2.5 mg tablet 15 mg PO metoprolol succinate 100 mg tablet extended release 24 hr 100 mg PO QDAY Qty: 90 0RF albuterol sulfate 90 mcg/actuation HFA aerosol inhaler 2 puff inhalation Q4H PRN (Reason: COPD) Qty: 8.5 2RF Follow Up/Referrals: Los Flower MD [Primary Care Provider] - Stand Alone Forms: [facility] [employer] Info Instructions
--- NOTE | 2022-09-02 11:32 | CRLHL7_ITS ---
For Patients: As a result of the Cures Act, medical imaging exams and procedure reports are released immediately into your electronic medical record. You may view this report before your referring provider. If you have questions, please contact your health care provider. Indication: Swelling, injury 4 days prior Technique: Right hand 3 views. Comparison: None Findings: Narrowing and spurring are present at the 1st carpometacarpal joint. Osteopenia. No acute or subacute fracture. Soft tissue swelling. Impression: No evidence of fracture. Dictated by Los Pierson MD @ 09/02/2022 12:33:40 PM (Electronically Signed)
== END 2022-09-02 12:58 | disposition home or self-care (01) ==
PROVIDERS: Emergency Provider Family Medicine; PCP Family Medicine
DX: M79.641 Pain in right hand (principal); W22.8XXA Striking against or struck by other objects, initial encounter
CPT/HCPCS: 73130; 99283

== ENCOUNTER 2022-11-17 11:19 | Emergency (ER) | payer BC, SELFPAY ==
[2022-11-17 11:25] VITALS: BP 172/97; PULSE 63; RESP 18; TEMP 36.8; O2SAT 98; BMI 22.3
--- NOTE | 2022-11-17 11:33 | CRLHL7_ITS ---
For Patients: As a result of the Cures Act, medical imaging exams and procedure reports are released immediately into your electronic medical record. You may view this report before your referring provider. If you have questions, please contact your health care provider. INDICATION: Fall COMPARISON: None. TECHNIQUE: Three views right knee. FINDINGS: BONES: No fracture. Normal mineralization. No focal bone lesion. JOINT: Normal knee joint alignment. No knee joint effusion. Joint spaces: Normal. Soft Tissues: Normal. No foreign body. IMPRESSION: Normal right knee radiographs. Dictated by Yuridia Gracia MD @ 11/17/2022 12:38:08 PM (Electronically Signed)
--- NOTE | 2022-11-17 11:33 | CRLHL7_ITS ---
For Patients: As a result of the Cures Act, medical imaging exams and procedure reports are released immediately into your electronic medical record. You may view this report before your referring provider. If you have questions, please contact your health care provider. INDICATION: Fall COMPARISON: None. TECHNIQUE: Three views left knee. FINDINGS: BONES: No fracture. Normal mineralization. No focal bone lesion. JOINT: Normal knee joint alignment. No knee joint effusion. Joint spaces: Normal. Soft Tissues: Normal. No foreign body. IMPRESSION: Normal left knee radiographs. Dictated by Yuridia Gracia MD @ 11/17/2022 12:38:45 PM (Electronically Signed)
--- NOTE | 2022-11-17 11:34 | ED_ITS ---
HPI - Extremity Injury (Lower) General Chief Complaint: Extremity Pain/Injury, Lower Stated Complaint: Pain in both knees Time Seen by Provider: 11/17/22 11:25 History of Present Illness HPI Narrative: This 57-year-old male comes in with injury to both knees from a fall that occurred 6 days ago. He states that he was taking his dog out for grooming and was holding onto a leash that was wrapped around his wrist. The dog saw something and pulled him forward down some steps. He states that he landed with his knees on the cement at the bottom of the steps and his hands on grass. He did not hit his head or have loss of consciousness. He is ambulatory. Related Data Home Medications Medication Instructions Recorded Confirmed aspirin 81 mg tablet,delayed 81 mg PO DAILY 01/17/22 09/10/22 release calcium citrate 200 mg 2 tab PO DAILY 01/17/22 09/10/22 calcium-vitamin D3 6.25 mcg (250 unit) tablet methotrexate sodium 2.5 mg tablet 15 mg PO 09/02/22 09/10/22 Previous Rx's Medication Instructions Recorded bupropion HCl 300 mg 24 hr tablet, 300 mg PO QAM #30 tabs 03/14/22 extended release (Wellbutrin XL) folic acid 1 mg tablet 1 mg PO QDAY #90 tabs 03/14/22 prednisone 20 mg tablet 20 mg PO BID #10 tabs 09/02/22 hydrochlorothiazide 25 mg tablet 25 mg PO DAILY #90 tabs 09/03/22 albuterol sulfate 90 mcg/actuation 2 puff inhalation Q4H PRN COPD 09/29/22 aerosol inhaler #8.5 grams budesonide 160 mcg-glycopyr 9 2 inh inhalation BID #10.7 grams 09/29/22 mcg-formot 4.8 mcg/actuation HFA inhaler (Breztri Aerosphere) ipratropium 0.5 mg-albuterol 3 mg 3 ml inhalation TID #180 mL 09/29/22 (2.5 mg base)/3 mL nebulization soln metoprolol succinate 200 mg 200 mg PO QDAY #90 tabs 09/29/22 tablet,extended release 24 hr prednisone 20 mg tablet 10 - 40 mg (0.5 - 2 x 20 mg) PO 10/02/22 QDAY #14 tabs ketorolac 10 mg tablet 10 mg PO Q8H 5 days #15 tabs 11/17/22 Allergies Allergy/AdvReac Type Severity Reaction Status Date / Time No Known Drug Allergies Allergy Verified 09/10/22 10:53 Review of Systems Status of ROS: Reports: 10 or more systems reviewed and unremarkable except as noted in History and below Narrative: Constitutional: No fevers, no weight gain or loss. Eyes: No discharge. No vision changes. HENT: No congestion, no sore throat, no ear pain. Cardiovascular: No chest pain, no palpitations. Respiratory: No shortness of breath, no wheezes, no cough. Gastrointestinal: No abdominal pain, no vomiting, no diarrhea. Genitourinary: No dysuria, no hematuria. Musculoskeletal: Anterior knee pain. Skin: No rashes, no pruritis. Neurological: No dizziness, weakness, sensory change, speech change. Endo/Heme/Allergies: No bruising or bleeding. No polydipsia. Pysch: no suicidality, no anxiety, no insomnia. All other systems reviewed and are negative. [facility] Medical History Psoriasis ?L40.9 - Psoriasis, unspecified (ICD-10) Scalp psoriasis ?L40.9 - Psoriasis, unspecified (ICD-10) Tobacco abuse ?Z72.0 - Tobacco use (ICD-10) Tension headache ?G44.209 - Tension-type headache, unspecified, not intractable (ICD-10) Paresthesia of both feet ?R20.2 - Paresthesia of skin (ICD-10) Generalized anxiety disorder (07/10/15) ?F41.1 - Generalized anxiety disorder (ICD-10) Fracture of rib ?S22.39XA - Fracture of one rib, unspecified side, initial encounter for closed fracture (ICD-10) Dental abscess ?K04.7 - Periapical abscess without sinus (ICD-10) Community acquired pneumonia ?J18.9 - Pneumonia, unspecified organism (ICD-10) Calculus of kidney ?N20.0 - Calculus of kidney (ICD-10) Alcohol abuse ?F10.10 - Alcohol abuse, uncomplicated (ICD-10) Hypertension ?I10 - Essential (primary) hypertension (ICD-10) COPD (chronic obstructive pulmonary disease) ?J44.9 - Chronic obstructive pulmonary disease, unspecified (ICD-10) Social History Narrative: Smoker What is your current living situation?: I presently have a place to live Problems where you live: no known problems In the past 12 months, utilities in danger of being shut off: no In past 12 months, lack of transportation kept you from medical appts, meetings, work, or getting things needed for daily living: no In the past 12 mos, have been you worried that your food would run out before you had money to buy more?: never true In the past 12 mos, the food you bought just didn't last and you didn't have money to buy more?: never true Smoking Status: Current every day smoker What tobacco products do you use: cigarettes Smoking packs per day: 0.5 Smoking cigarettes per day: 10.0 Years smoked: 20 Smoking pack-years: 10.00 Do you use any of these nicotine containing products: None Second hand tobacco smoke exposure: No How often do you have a drink containing alcohol: 2-4 times a month How many standard drinks containing alcohol do you have on a typical day: 5 or 6 How often do you have six or more drinks on one occasion: Weekly AUDIT-C Alcohol total score: 7 Non-prescribed substance use: denies use How often does anyone, including family, friends and others, physically hurt you : never How often does anyone, including family, friends and others, insult or talk down to you: never How often does anyone, including family, friends and others, threaten you with harm: never How often does anyone, including family, friends and others, scream or curse at you: never Little interest or pleasure in doing things: not at all Feeling down, depressed, or hopeless: not at all service: No Exam Narrative: Exam Narrative: Constitutional: Well-developed, well-nourished, no acute distress. HEENT: Normocephalic, atraumatic. Neck: Normal range of motion. Nontender. Supple. Heart: Intact distal pulses. Lungs: No chest discomfort. No wheezes, rhonchi, or rales. Abdomen: Nontender. Back: Normal range of motion. Extremities: Pain in the anterior aspect of both knees. No effusion or swelling. No abrasion or skin injury. Skin: Intact. No rash. Warm. No erythema or pallor. Neurologic: No altered sensation. No weakness. Alert and oriented. Psychiatric: No suicidality. No anxiety or depression. No insomnia. Nursing notes and vitals signs are reviewed. Const: Vital Signs, click to edit/add: Vital Signs - 24 hr 11/17/22 11:25 Temperature 98.2 F Pulse Rate [Right Pulse Oximeter] 63 Respiratory Rate 18 Blood Pressure [Ri ght Upper Arm] 172/97 H Pulse Oximetry 98 Oxygen Delivery Me thod Room Air Course Vital Signs Vital signs: Initial Vital Signs Temperature 98.2 F 11/17/22 11:25 Temperature Source Temporal Artery Scan 11/17/22 11:25 Pulse Rate 63 11/17/22 11:25 Respiratory Rate 18 11/17/22 11:25 Blood Pressure 172/97 H 11/17/22 11:25 Blood Pressure Mean 122 H 11/17/22 11:25 Blood Pressure Position Sitting 11/17/22 11:25 Pulse Oximetry 98 11/17/22 11:25 Oxygen Delivery Method Room Air 11/17/22 11:25 Vital Signs Temperature 98.2 F 11/17/22 11:25 Pulse Rate 63 11/17/22 11:25 Respiratory Rate 18 11/17/22 11:25 Blood Pressure 172/97 H 11/17/22 11:25 Pulse Oximetry 98 11/17/22 11:25 Oxygen Delivery Method Room Air 11/17/22 11:25 Temperature 98.2 F 11/17/22 11:25 Pulse Rate 63 11/17/22 11:25 Respiratory Rate 18 11/17/22 11:25 Blood Pressure 172/97 H 11/17/22 11:25 Pulse Oximetry 98 11/17/22 11:25 Oxygen Delivery Method Room Air 11/17/22 11:25 MDM - Extremity Injury (Lower) MDM Narrative Medical decision making narrative: This patient has persistent bilateral knee pain after a fall that occurred 6 days ago. He is ambulatory. I did check x-ray images of each knee and these returned with no acute findings by my review. Radiology report is pending. The patient received a return to work note and a prescription for Toradol. He is encouraged to increase activity as tolerated. Discharge Plan Discharge Clinical Impression: Contusion of knee, left, Contusion of knee, right Patient Disposition: Home, Self-Care Condition: Stable Additional Instructions: Increase activity as tolerated. Take medication as needed and directed. Follow up with MD return if worsening. Prescriptions: New ketorolac 10 mg tablet 10 mg PO Q8H 5 Days Qty: 15 0RF No Action calcium citrate-vitamin D3 200 mg-6.25 mcg (250 unit) tablet 2 tab PO DAILY aspirin 81 mg tablet,delayed release (DR/EC) 81 mg PO DAILY bupropion HCl [Wellbutrin XL] 300 mg tablet extended release 24 hr 300 mg PO QAM Qty: 30 5RF folic acid 1 mg tablet 1 mg PO QDAY Qty: 90 3RF methotrexate sodium 2.5 mg tablet 15 mg PO prednisone 20 mg tablet 20 mg PO BID Qty: 10 0RF hydrochlorothiazide 25 mg tablet 25 mg PO DAILY Qty: 90 1RF albuterol sulfate 90 mcg/actuation HFA aerosol inhaler 2 puff inhalation Q4H PRN (Reason: COPD) Qty: 8.5 0RF Breztri Aerosphere 160-9-4.8 mcg/actuation HFA aerosol inhaler 2 inh inhalation BID Qty: 10.7 3RF ipratropium-albuterol 0.5 mg-3 mg(2.5 mg base)/3 mL solution for nebulization 3 ml inhalation TID Qty: 180 0RF metoprolol succinate 200 mg tablet extended release 24 hr 200 mg PO QDAY Qty: 90 0RF prednisone 20 mg tablet 10 - 40 mg PO QDAY Qty: 14 0RF Rx Instructions: 2 QD x 4 days, 1 QD x 4 days, 1/2 QD x 4 days Follow Up/Referrals: Los Flower MD [Primary Care Provider] - Stand Alone Forms: [facility]end [facility] Info Instructions
[2022-11-17 12:24] VITALS: BP 141/95; PULSE 60; RESP 20; O2SAT 96
== END 2022-11-17 12:27 | disposition home or self-care (01) ==
PROVIDERS: Emergency Provider Emergency Medicine Emergency Medical Services; PCP Family Medicine
DX: S80.02XA Contusion of left knee, initial encounter (principal); S80.01XA Contusion of right knee, initial encounter; W10.9XXA Fall (on) (from) unspecified stairs and steps, initial encounter
CPT/HCPCS: 73562; 99283; 99284

== ENCOUNTER 2022-12-24 08:58 | Emergency (ER) | payer BC, SELFPAY ==
[2022-12-24 09:09] VITALS: BP 126/84; PULSE 97; RESP 20; TEMP 37; O2SAT 96; BMI 22.0
--- NOTE | 2022-12-24 09:23 | ED.GENADULT ---
HPI - General Adult General Chief complaint: Extremity Pain/Injury, Lower Stated complaint: L foot injury Time Seen by Provider: 12/24/22 09:17 History of Present Illness HPI narrative: Patient is a 57 year white male who has got a history of COPD alcohol and tobacco abuse, anxiety and paresthesia of the feet as well as headaches, presents with a left foot pain. He has had thought he broke a toe by stopping as great toe about a month ago did not have any x-rays or imaging. The patient reports now it is red and swollen and tender, as had some heel pain as well. He presents to ED for evaluation, could get a clinic appointment. No fevers chills, no history of gout. No history of rigors or chills. Related Data Home Medications Medication Instructions Recorded Confirmed aspirin 81 mg tablet,delayed 81 mg PO DAILY 01/17/22 09/10/22 release calcium citrate 200 mg 2 tab PO DAILY 01/17/22 09/10/22 calcium-vitamin D3 6.25 mcg (250 unit) tablet methotrexate sodium 2.5 mg tablet 15 mg PO 09/02/22 09/10/22 Previous Rx's Medication Instructions Recorded bupropion HCl 300 mg 24 hr tablet, 300 mg PO QAM #30 tabs 03/14/22 extended release (Wellbutrin XL) folic acid 1 mg tablet 1 mg PO QDAY #90 tabs 03/14/22 prednisone 20 mg tablet 20 mg PO BID #10 tabs 09/02/22 hydrochlorothiazide 25 mg tablet 25 mg PO DAILY #90 tabs 09/03/22 albuterol sulfate 90 mcg/actuation 2 puff inhalation Q4H PRN COPD 09/29/22 aerosol inhaler #8.5 grams budesonide 160 mcg-glycopyr 9 2 inh inhalation BID #10.7 grams 09/29/22 mcg-formot 4.8 mcg/actuation HFA inhaler (Breztri Aerosphere) ipratropium 0.5 mg-albuterol 3 mg 3 ml inhalation TID #180 mL 09/29/22 (2.5 mg base)/3 mL nebulization soln metoprolol succinate 200 mg 200 mg PO QDAY #90 tabs 09/29/22 tablet,extended release 24 hr prednisone 20 mg tablet 10 - 40 mg (0.5 - 2 x 20 mg) PO 10/02/22 QDAY #14 tabs ketorolac 10 mg tablet 10 mg PO Q8H 5 days #15 tabs 11/17/22 Allergies Allergy/AdvReac Type Severity Reaction Status Date / Time No Known Drug Allergies Allergy Verified 09/10/22 10:53 Review of Systems Status of ROS: Reports: 6 or more systems reviewed and unremarkable except as noted in History and below PFSH PFS Medical History Psoriasis ?L40.9 - Psoriasis, unspecified (ICD-10) Scalp psoriasis ?L40.9 - Psoriasis, unspecified (ICD-10) Tobacco abuse ?Z72.0 - Tobacco use (ICD-10) Tension headache ?G44.209 - Tension-type headache, unspecified, not intractable (ICD-10) Paresthesia of both feet ?R20.2 - Paresthesia of skin (ICD-10) Generalized anxiety disorder (07/10/15) ?F41.1 - Generalized anxiety disorder (ICD-10) Fracture of rib ?S22.39XA - Fracture of one rib, unspecified side, initial encounter for closed fracture (ICD-10) Dental abscess ?K04.7 - Periapical abscess without sinus (ICD-10) Community acquired pneumonia ?J18.9 - Pneumonia, unspecified organism (ICD-10) Calculus of kidney ?N20.0 - Calculus of kidney (ICD-10) Alcohol abuse ?F10.10 - Alcohol abuse, uncomplicated (ICD-10) Hypertension ?I10 - Essential (primary) hypertension (ICD-10) COPD (chronic obstructive pulmonary disease) ?J44.9 - Chronic obstructive pulmonary disease, unspecified (ICD-10) Social History Narrative: Smoker What is your current living situation?: I presently have a place to live Problems where you live: no known problems In the past 12 months, utilities in danger of being shut off: no In past 12 months, lack of transportation kept you from medical appts, meetings, work, or getting things needed for daily living: no In the past 12 mos, have been you worried that your food would run out before you had money to buy more?: never true In the past 12 mos, the food you bought just didn't last and you didn't have money to buy more?: never true Smoking Status: Current every day smoker What tobacco products do you use: cigarettes Smoking packs per day: 0.5 Smoking cigarettes per day: 10.0 Years smoked: 20 Smoking pack-years: 10.00 Do you use any of these nicotine containing products: None Second hand tobacco smoke exposure: No How often do you have a drink containing alcohol: 2-4 times a month How many standard drinks containing alcohol do you have on a typical day: 5 or 6 How often do you have six or more drinks on one occasion: Weekly AUDIT-C Alcohol total score: 7 Non-prescribed substance use: denies use How often does anyone, including family, friends and others, physically hurt you: never How often does anyone, including family, friends and others, insult or talk down to you: never How often does anyone, including family, friends and others, threaten you with harm: never How often does anyone, including family, friends and others, scream or curse at you: never Little interest or pleasure in doing things: not at all Feeling down, depressed, or hopeless: not at all service: No Exam Narrative: Exam Narrative: Objective: Vital signs are within normal limits He is alert orient x3 Feet show chronic black and areas on the bottom his feet, that look like almost imprinted coloration from his shoes. The patient has some mild tenderness and redness over his proximal phalanx of the great toe mild soft tissue swelling, no open wounds. Patient has no A's cellulitic streaking he has some mild 1st MTP joint tenderness as well medially. No significant heel pain or swelling in the ankle noted lymphangitic cellulitic spread of infection. Const: Vital Signs, click to edit/add: Vital Signs - 24 hr 12/24/22 09:09 Temperature 98.6 F Pulse Rate [Pulse Oximeter] 97 Respiratory Rate 20 Blood Pressure [Ri ght Upper Arm] 126/84 Pulse Oximetry 96 Oxygen Delivery Me thod Room Air Course Vital Signs Vital signs: Initial Vital Signs Temperature 98.6 F 12/24/22 09:09 Temperature Source Temporal Artery Scan 12/24/22 09:09 Pulse Rate 97 12/24/22 09:09 Respiratory Rate 20 12/24/22 09:09 Blood Pressure 126/84 12/24/22 09:09 Blood Pressure Mean 98 12/24/22 09:09 Blood Pressure Position Supine 12/24/22 09:09 Pulse Oximetry 96 12/24/22 09:09 Oxygen Delivery Method Room Air 12/24/22 09:09 Vital Signs Temperature 98.6 F 12/24/22 09:09 Pulse Rate 97 12/24/22 09:09 Respiratory Rate 20 12/24/22 09:09 Blood Pressure 126/84 12/24/22 09:09 Pulse Oximetry 96 12/24/22 09:09 Oxygen Delivery Method Room Air 12/24/22 09:09 Temperature 98.6 F 12/24/22 09:09 Pulse Rate 97 12/24/22 09:09 Respiratory Rate 20 12/24/22 09:09 Blood Pressure 126/84 12/24/22 09:09 Pulse Oximetry 96 12/24/22 09:09 Oxygen Delivery Method Room Air 12/24/22 09:09 Medical Decision Making MDM Narrative Medical decision making narrative: [age] year white male with injury to his left great toe, with now increased redness and pain. Rule out fracture, rule out gout. Rule out infection. Patient lab studies x-ray disposition pending findings. Addendum: The patient's x-ray by my read has a distal phalanx fracture nondisplaced and a distal proximal phalanx fracture nondisplaced. He will be put in cam walker, nonweightbearing, crutches, follow up with Ortho next couple of days. Tylenol Advil as needed. Ice and elevation recommended. No written for off work until he sees Orthopedics, crutches and walking boot. Would not put weight on until he sees Ortho. Advil and Tylenol as needed., labs look reassuring thus far. Lab Data Labs: Lab Results 12/24/22 Range/Units 10:20 WBC 4.37 L (4.50-11.00) K/uL RBC 4.12 L (4.30-5.90) m/uL Hgb 13.0 L (13.5-17.5) gm/dL Hct 39.4 (37.0-53.0) % MCV 96 (80-100) fL MCH 32 (26-34) pg MCHC 33 (32-36) gm/dL RDW Coeff of Lidia 13.2 (11.5-15.5) % Plt Count 209 (140-440) K/uL Neut % (Auto) 53.2 (42.0-72.0) % Lymph % (Auto) 32.7 (20-44) % Candler % (Auto) 8.9 (0.0-11.0) % Eos % (Auto) 3.9 (0.0-7.0) % Baso % (Auto) 1.1 (0.0-3.0) % Neut # (Auto) 2.30 (1.7-7.0) K/uL Lymph # (Auto) 1.40 (0.90-2.90) K/uL Candler # (Auto) 0.40 (0.00-0.90) K/UL Eos # (Auto) 0.20 (0.00-0.50) K/uL Baso # (Auto) 0.00 (0.00-0.30) K/uL Abs Immat Gran (auto) 0.00 (0.00-0.30) K/uL Imm/Tot Granulo (auto) 0.2 % Sodium 137 (135-149) mmol/L Potassium 3.6 (3.6-5.1) mmol/L Chloride 107 (96-114) mmol/L Carbon Dioxide 28 (20-32) mmol/L Anion Gap 2 L (7-15) mEq/L BUN 16 (7-30) mg/dL Creatinine 0.8 (0.5-1.5) mg/dL Estimated Creat Clear 105.84 Estimated GFR 104 ml/min Glucose 107 (60-115) mg/dL Uric Acid 3.7 (2.2-8.4) mg/dL Calcium 8.6 (8.4-10.6) mg/dL C-Reactive Protein < 0.5 L (0.5-1.0) mg/dL Discharge Plan Discharge Clinical Impression: Acute foot pain, Injury of left great toe, Fracture of toe Patient Disposition: Home w/ Parent or Adult Condition: Stable Additional Instructions: Crutches, limited weight-bearing with a cam walker. Ortho follow-up as scheduled. Advil and Tylenol as needed. Elevate the leg. Follow up appointment is scheduled at the [facility]– [place]Note 2] on 12/25 with a 10:40am appointment time. Please arrive at 10:30am to check in. If you have any questions or need to reschedule, please call [phone]. [facility]– [place]Note 2] [address] [place] [address] Activity Level: Light activity Discharge Diet: Regular Prescriptions: No Action calcium citrate-vitamin D3 200 mg-6.25 mcg (250 unit) tablet 2 tab PO DAILY aspirin 81 mg tablet,delayed release (DR/EC) 81 mg PO DAILY bupropion HCl [Wellbutrin XL] 300 mg tablet extended release 24 hr 300 mg PO QAM Qty: 30 5RF folic acid 1 mg tablet 1 mg PO QDAY Qty: 90 3RF methotrexate sodium 2.5 mg tablet 15 mg PO prednisone 20 mg tablet 20 mg PO BID Qty: 10 0RF ketorolac 10 mg tablet 10 mg PO Q8H 5 Days Qty: 15 0RF hydrochlorothiazide 25 mg tablet 25 mg PO DAILY Qty: 90 1RF albuterol sulfate 90 mcg/actuation HFA aerosol inhaler 2 puff inhalation Q4H PRN (Reason: COPD) Qty: 8.5 0RF Breztri Aerosphere 160-9-4.8 mcg/actuation HFA aerosol inhaler 2 inh inhalation BID Qty: 10.7 3RF ipratropium-albuterol 0.5 mg-3 mg(2.5 mg base)/3 mL solution for nebulization 3 ml inhalation TID Qty: 180 0RF metoprolol succinate 200 mg tablet extended release 24 hr 200 mg PO QDAY Qty: 90 0RF prednisone 20 mg tablet 10 - 40 mg PO QDAY Qty: 14 0RF Rx Instructions: 2 QD x 4 days, 1 QD x 4 days, 1/2 QD x 4 days Follow Up/Referrals: Los Flower MD [Primary Care Provider] - Stand Alone Forms: [employer] Info Instructions
--- NOTE | 2022-12-24 10:09 | CRLHL7_ITS ---
For Patients: As a result of the Century Cures Act, medical imaging exams and procedure reports are released immediately into your electronic medical record. You may view this report before your referring provider. If you have questions, please contact your health care provider. Indication: Pain Technique: Three views Comparison: None Findings/Impression: Bones: There is a transverse fracture at the base of the distal phalanx great toe without significant displacement in these views. In addition, there is some irregularity of the distal aspect of the proximal phalanx of the great toe suggesting a nondisplaced fracture, although this can be incomplete. Joint spaces: Unremarkable. Soft tissues: Mild soft tissue swelling. Dictated by Dylan Tang MD @ 12/24/2022 10:28:45 AM (Electronically Signed)
[2022-12-24 10:33] LABS: Basophils Percent Auto 1.1 % (0.0-3.0); Eosinophils Percent Auto 3.9 % (0.0-7.0); Hematocrit 39.4 % (37.0-53.0); Immature Granulocytes Pct Auto 0.2 %; Lymphocytes Percent Auto 32.7 % (20-44); Mean Corpuscular HGB Conc 33 gm/dL (32-36); Mean Corpuscular Hemoglobin 32 pg (26-34); Mean Corpuscular Volume 96 fL (80-100); Monocytes Percent Auto 8.9 % (0.0-11.0); Neutrophils Percent Auto 53.2 % (42.0-72.0); Platelet Count* 209 K/uL (140-440); RDW Coefficient of Variation % 13.2 % (11.5-15.5); Red Blood Count 4.12 m/uL (4.30-5.90); White Blood Count* 4.37 K/uL (4.50-11.00)
[2022-12-24 10:37] LABS: Slide Review Reflex No
[2022-12-24 10:46] LABS: Chloride* 107 mmol/L (96-114); Potassium* 3.6 mmol/L (3.6-5.1); Sodium* 137 mmol/L (135-149)
[2022-12-24 10:49] LABS: Creatinine* 0.8 mg/dL (0.5-1.5); Est. Creatinine Clearance* 105.84; Estimated Glomerular Filt Rate 104 ml/min
[2022-12-24 10:50] LABS: Anion Gap 2 mEq/L (7-15); Blood Urea Nitrogen* 16 mg/dL (7-30); Calcium* 8.6 mg/dL (8.4-10.6); Carbon Dioxide* 28 mmol/L (20-32); Glucose* 107 mg/dL (60-115); Uric Acid* 3.7 mg/dL (2.2-8.4)
[2022-12-24 10:59] LABS: C Reactive Protein* < 0.5 mg/dL (0.5-1.0)
== END 2022-12-24 11:05 | disposition home or self-care (01) ==
PROVIDERS: Emergency Provider Family Medicine; PCP Family Medicine
DX: S92.425A Nondisplaced fracture of distal phalanx of left great toe, initial encounter for closed fracture (principal)
CPT/HCPCS: 36415; 73630; 80048; 84550; 85025; 86140; 99283; 99284

== ENCOUNTER 2023-02-09 13:51 | Emergency (ER) | payer OTHER, SELFPAY ==
[2023-02-09 14:21] VITALS: BP 105/64; PULSE 67; RESP 18; TEMP 36; O2SAT 98; BMI 22.7
--- NOTE | 2023-02-09 15:18 | ED_ITS ---
HPI - SOB/Dyspnea General Date Seen: 02/09/23 Chief Complaint: Cough Stated Complaint: positive home COVID test Time Seen by Provider: 02/09/23 13:55 Source: patient and other Mode of arrival: ambulatory Limitations: no limitations History of Present Illness HPI Narrative: Patient is a 57-year-old gentleman, presents here with his roommate, they both have a coughing cold-like symptoms, he tested positive for COVID at home, but is roommate did not. He has had the initial series of COVID but has not received the booster. He does have a history of asthma, uses nebulize treatments but has not been using more of those, he does have a history also of COPD, feels that he is doing well, with his asthma/COPD, he has had no nausea vomiting no fevers chills he did have some loose stools a few days ago but this is resolved his appetite seems okay, elicited complaint: shortness of breath Pertinent past history: COPD Context: recent illness Severity: moderate Exacerbating factors: nothing Known history of: COPD Treatment prior to arrival: none Related Data Home oxygen amount: none Home Medications Medication Instructions Recorded Confirmed aspirin 81 mg tablet,delayed 81 mg PO DAILY 01/17/22 01/02/23 release calcium citrate 200 mg 2 tab PO DAILY 01/17/22 01/02/23 calcium-vitamin D3 6.25 mcg (250 unit) tablet Previous Rx's Medication Instructions Recorded bupropion HCl 300 mg 24 hr tablet, 300 mg PO QAM #30 tabs 03/14/22 extended release (Wellbutrin XL) folic acid 1 mg tablet 1 mg PO QDAY #90 tabs 03/14/22 hydrochlorothiazide 25 mg tablet 25 mg PO DAILY #90 tabs 09/03/22 albuterol sulfate 90 mcg/actuation 2 puff inhalation Q4H PRN COPD 09/29/22 aerosol inhaler #8.5 grams budesonide 160 mcg-glycopyr 9 2 inh inhalation BID #10.7 grams 09/29/22 mcg-formot 4.8 mcg/actuation HFA inhaler (Breztri Aerosphere) ipratropium 0.5 mg-albuterol 3 mg 3 ml inhalation TID #180 mL 09/29/22 (2.5 mg base)/3 mL nebulization soln metoprolol succinate 200 mg 200 mg PO QDAY #90 tabs 09/29/22 tablet,extended release 24 hr prednisone 50 mg tablet 50 mg PO QDAY #7 tabs 01/22/23 nirmatrelvir 300 mg (150 mg See Rx Instructions PO .COMPLEX 02/09/23 x2)-ritonavir 100 mg tablet,dose #30 ea pack (Paxlovid) Allergies Allergy/AdvReac Type Severity Reaction Status Date / Time No Known Drug Allergies Allergy Verified 01/02/23 10:15 Review of Systems Status of ROS: Reports: 10 or more systems reviewed and unremarkable except as noted in History and below [facility] Medical History Closed fracture of left great toe ?S92.402A - Displaced unspecified fracture of left great toe, initial encoun ter for closed fracture (ICD-10) Psoriasis ?L40.9 - Psoriasis, unspecified (ICD-10) Scalp psoriasis ?L40.9 - Psoriasis, unspecified (ICD-10) Tobacco abuse ?Z72.0 - Tobacco use (ICD-10) Tension headache ?G44.209 - Tension-type headache, unspecified, not intractable (ICD-10) Paresthesia of both feet ?R20.2 - Paresthesia of skin (ICD-10) Generalized anxiety disorder (07/10/15) ?F41.1 - Generalized anxiety disorder (ICD-10) Fracture of rib ?S22.39XA - Fracture of one rib, unspecified side, initial encounter for closed fracture (ICD-10) Dental abscess ?K04.7 - Periapical abscess without sinus (ICD-10) Community acquired pneumonia ?J18.9 - Pneumonia, unspecified organism (ICD-10) Calculus of kidney ?N20.0 - Calculus of kidney (ICD-10) Alcohol abuse ?F10.10 - Alcohol abuse, uncomplicated (ICD-10) Hypertension ?I10 - Essential (primary) hypertension (ICD-10) COPD (chronic obstructive pulmonary disease) ?J44.9 - Chronic obstructive pulmonary disease, unspecified (ICD-10) Surgical History History of arthroscopy of right knee (2016) ?Z98.890 - Other specified postprocedural states (ICD-10) Social History Narrative: Smoker What is your current living situation?: I presently have a place to live Problems where you live: no known problems In the past 12 months, utilities in danger of being shut off: no In past 12 months, lack of transportation kept you from medical appts, meetings, work, or getting things needed for daily living: no In the past 12 mos, have been you worried that your food would run out before you had money to buy more?: never true In the past 12 mos, the food you bought just didn't last and you didn't have money to buy more?: never true Smoking Status: Current every day smoker What tobacco products do you use: cigarettes Smoking packs per day: 0.5 Smoking cigarettes per day: 10.0 Years smoked: 20 Smoking pack-years: 10.00 Do you use any of these nicotine containing products: None Second hand tobacco smoke exposure: No How often do you have a drink containing alcohol: 2-4 times a month How many standard drinks containing alcohol do you have on a typical day: 5 or 6 How often do you have six or more drinks on one occasion: Weekly AUDIT-C Alcohol total score: 7 Non-prescribed substance use: denies use How often does anyone, including family, friends and others, physically hurt you : never How often does anyone, including family, friends and others, insult or talk down to you: never How often does anyone, including family, friends and others, threaten you with harm: never How often does anyone, including family, friends and others, scream or curse at you: never Little interest or pleasure in doing things: not at all Feeling down, depressed, or hopeless: not at all service: No Exam Narrative: Exam Narrative: Patient is seen in room 3, no evidence of any significant issue. Breathing okay. Oropharynx normal TMs normal, neck is supple, occasional wheezes are noted on expiration, no crackles, no signs respiratory distress heart sounds normal, abdomen is soft and scaphoid, lower extremity show no pitting edema swelling negative Homans sign moves all extremities independently and well. Const: Vital Signs, click to edit/add: Vital Signs - 24 hr 02/09/23 14:21 02/09/23 16:50 Temperature 96.8 F L Pulse Rate [Pulse Oximeter] 67 65 Respiratory Rate 18 16 Blood Pressure [Ri ght Upper Arm] 105/64 Pulse Oximetry 98 97 Oxygen Delivery Me thod Room Air Room Air Documenting provider has reviewed patient's vital signs: yes Course Course ED Course: Patient remains stable, we discussed the use of paxlovid I recommend these this given his history of COPD. Risks benefits and side effects discussed, return if worsening Vital Signs Vital signs: Initial Vital Signs Temperature 96.8 F L 02/09/23 14:21 Temperature Source Temporal Artery Scan 02/09/23 14:21 Pulse Rate 67 02/09/23 14:21 Respiratory Rate 18 02/09/23 14:21 Blood Pressure 105/64 02/09/23 14:21 Blood Pressure Mean 77 02/09/23 14:21 Pulse Oximetry 98 02/09/23 14:21 Oxygen Delivery Method Room Air 02/09/23 14:21 Vital Signs Temperature 96.8 F L 02/09/23 14:21 Pulse Rate 67 02/09/23 14:21 Respiratory Rate 18 02/09/23 14:21 Blood Pressure 105/64 02/09/23 14:21 Pulse Oximetry 98 02/09/23 14:21 Oxygen Delivery Method Room Air 02/09/23 14:21 Temperature 96.8 F L 02/09/23 14:21 Pulse Rate 65 02/09/23 16:50 Respiratory Rate 16 02/09/23 16:50 Blood Pressure 105/64 02/09/23 14:21 Pulse Oximetry 97 02/09/23 16:50 Oxygen Delivery Method Room Air 02/09/23 16:50 MDM - SOB/Dyspnea MDM Narrative Medical decision making narrative: Life-threatening differential diagnosis includes occluded COPD exacerbation, pulmonary edema, acute coronary syndromes, pulmonary embolism, pneumonia, and pneumothorax. Other differential diagnosis considerations include asthma, bronchitis as well as other etiologies Differential Diagnosis Differential diagnosis: Likely acute exacerbation of chronic obstructive airways disease, congestive heart failure, community acquired pneumonia, asthma with exacerbation and pulmonary embolism Medical Records Attestation: I reviewed the patient's medical records. Discharge Plan Discharge Clinical Impression: COVID-19, Tobacco abuse, COPD (chronic obstructive pulmonary disease) Patient Disposition: Home, Self-Care Condition: Stable Instructions: How to Stop Smoking (ED), COPD (Chronic Obstructive Pulmonary Disease) (ED), COVID-19 (Coronavirus Disease 2019) (ED) Additional Instructions: Home rest use of medications as directed. Take your Paxil of it, pick it up tomorrow. Here if increasing shortness of breath, leg swelling, or other issues ever new off work through till Thursday. Activity Level: Light activity Discharge Diet: Regular Prescriptions: New Paxlovid 300 mg (150 mg x 2)-100 mg tablets,dose pack See Rx Instructions .ROUTE .COMPLEX Qty: 30 0RF Rx Instructions: take TWO 150 mg tablets of nirmatrelvir with ONE 100 mg tablet of ritonavir twice daily for 5 days No Action calcium citrate-vitamin D3 200 mg-6.25 mcg (250 unit) tablet 2 tab PO DAILY aspirin 81 mg tablet,delayed release (DR/EC) 81 mg PO DAILY bupropion HCl [Wellbutrin XL] 300 mg tablet extended release 24 hr 300 mg PO QAM Qty: 30 5RF folic acid 1 mg tablet 1 mg PO QDAY Qty: 90 3RF hydrochlorothiazide 25 mg tablet 25 mg PO DAILY Qty: 90 1RF albuterol sulfate 90 mcg/actuation HFA aerosol inhaler 2 puff inhalation Q4H PRN (Reason: COPD) Qty: 8.5 0RF Breztri Aerosphere 160-9-4.8 mcg/actuation HFA aerosol inhaler 2 inh inhalation BID Qty: 10.7 3RF ipratropium-albuterol 0.5 mg-3 mg(2.5 mg base)/3 mL solution for nebulization 3 ml inhalation TID Qty: 180 0RF metoprolol succinate 200 mg tablet extended release 24 hr 200 mg PO QDAY Qty: 90 0RF prednisone 50 mg tablet 50 mg PO QDAY Qty: 7 0RF Follow Up/Referrals: Los Flower MD [Primary Care Provider] - Stand Alone Forms: [facility] Info Instructions
[2023-02-09 16:50] VITALS: PULSE 65; RESP 16; O2SAT 97
== END 2023-02-09 16:54 | disposition home or self-care (01) ==
PROVIDERS: Emergency Provider Family Medicine; PCP Family Medicine
DX: U07.1 COVID-19 (principal); J44.9 Chronic obstructive pulmonary disease, unspecified; Z72.0 Tobacco use
CPT/HCPCS: 99283; 99284

== ENCOUNTER 2023-02-18 19:55 | Outpatient (CLI) | payer OTHER, SELFPAY ==
--- OUTSIDE RECORDS SUMMARY | 2023-02-23 02:27 | XMS_ITS | Clinical Summary ---
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 20 tablet 0 04/24/2017 Active roflumilast (DALIRESP) 500 mcg tabletIndications:KILN CAR REPAIRER D, frequent exacerbations (HC) Take 500 mcg by mouth once daily. 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 PCP - General 01/23/18 Vlad Reyes MD Orthopedics Surgery - Orthopedic 11/02/12
== END 2023-02-18 19:56 | disposition home or self-care (01) ==
LOC: AMB 02-23 02:25
PROVIDERS: PCP Family Medicine; Visit Provider Emergency Medicine Emergency Medical Services
DX: U07.1 COVID-19 (principal); R06.09 Other forms of dyspnea
CPT/HCPCS: A0425; A0427

== ENCOUNTER 2023-02-18 20:11 | Emergency (ER) | payer OTHER, SELFPAY ==
--- NOTE | 2023-02-18 20:17 | CRLHL7_ITS ---
For Patients: As a result of the Cures Act, medical imaging exams and procedure reports are released immediately into your electronic medical record. You may view this report before your referring provider. If you have questions, please contact your health care provider. INDICATION: Shortness of breath. TECHNIQUE: Chest 2 views. COMPARISON: January 08, 2022. FINDINGS: Cardiovascular and mediastinum: Cardiomediastinal silhouette is within normal limits. Lungs and pleural spaces: Lungs are clear. No sign of pleural effusion. No pneumothorax. Bones and soft tissues: No significant findings. IMPRESSION: No acute findings and no significant change from the prior exam. Dictated by Viki Barahona MD @ 02/18/2023 9:13:37 PM (Electronically Signed)
[2023-02-18 20:20] VITALS: BP 116/84; PULSE 76; RESP 20; TEMP 36.3; O2SAT 97; BMI 23.0
[2023-02-18 21:10] LABS: PCR FLU A Negative PCR FLU A (Negative); PCR FLU B Negative PCR FLU B (Negative); PCR RSV Negative PCR RSV (Negative); SARS PCR* Negative SARS-CoV-2 (Negative)
--- NOTE | 2023-02-18 21:56 | ED.GENADULT ---
HPI - General Adult General Chief complaint: Shortness of Breath/Dyspnea Stated complaint: Short of breath Time Seen by Provider: 02/18/23 21:18 History of Present Illness HPI narrative: This 57-year-old male comes in because of upper respiratory symptoms that began 11 days ago. He tested positive for COVID and comes in today stating that he is just not feeling any better. He did take a 5 day course of paxlovid. He does have a history of tobacco abuse and COPD. He states that he has been using his albuterol inhaler regularly. He arrives here with normal vital signs. Related Data Home Medications Medication Instructions Recorded Confirmed aspirin 81 mg tablet,delayed 81 mg PO DAILY 01/17/22 01/02/23 release calcium citrate 200 mg 2 tab PO DAILY 01/17/22 01/02/23 calcium-vitamin D3 6.25 mcg (250 unit) tablet Previous Rx's Medication Instructions Recorded bupropion HCl 300 mg 24 hr tablet, 300 mg PO QAM #30 tabs 03/14/22 extended release (Wellbutrin XL) folic acid 1 mg tablet 1 mg PO QDAY #90 tabs 03/14/22 hydrochlorothiazide 25 mg tablet 25 mg PO DAILY #90 tabs 09/03/22 albuterol sulfate 90 mcg/actuation 2 puff inhalation Q4H PRN COPD 09/29/22 aerosol inhaler #8.5 grams budesonide 160 mcg-glycopyr 9 2 inh inhalation BID #10.7 grams 09/29/22 mcg-formot 4.8 mcg/actuation HFA inhaler (Breztri Aerosphere) ipratropium 0.5 mg-albuterol 3 mg 3 ml inhalation TID #180 mL 09/29/22 (2.5 mg base)/3 mL nebulization soln prednisone 50 mg tablet 50 mg PO QDAY #7 tabs 01/22/23 nirmatrelvir 300 mg (150 mg See Rx Instructions PO .COMPLEX 02/09/23 x2)-ritonavir 100 mg tablet,dose #30 ea pack (Paxlovid) metoprolol succinate 200 mg 200 mg PO QDAY #90 tabs 02/12/23 tablet,extended release 24 hr acetaminophen 300 mg-codeine 30 mg 1 tab PO Q6H PRN pain #15 tabs 02/18/23 tablet methylprednisolone 4 mg tablets in See Rx Instructions PO .COMPLEX 02/18/23 a dose pack (Medrol (Ramesh)) #21 ea Allergies Allergy/AdvReac Type Severity Reaction Status Date / Time No Known Drug Allergies Allergy Verified 01/02/23 10:15 Review of Systems Status of ROS: Reports: 10 or more systems reviewed and unremarkable except as noted in History and below Narrative: Constitutional: No fevers, no weight gain or loss. Eyes: No discharge. No vision changes. HENT: No congestion, no sore throat, no ear pain. Cardiovascular: No chest pain, no palpitations. Respiratory: No shortness of breath, no wheezes. Productive cough. Gastrointestinal: No abdominal pain, no vomiting, no diarrhea. Genitourinary: No dysuria, no hematuria. Musculoskeletal: Normal range of motion. Skin: No rashes, no pruritis. Neurological: No dizziness, weakness, sensory change, speech change. Endo/Heme/Allergies: No bruising or bleeding. No polydipsia. Pysch: no suicidality, no anxiety, no insomnia. All other systems reviewed and are negative. [facility] Medical History Closed fracture of left great toe ?S92.402A - Displaced unspecified fracture of left great toe, initial encounter for closed fracture (ICD-10) Psoriasis ?L40.9 - Psoriasis, unspecified (ICD-10) Scalp psoriasis ?L40.9 - Psoriasis, unspecified (ICD-10) Tobacco abuse ?Z72.0 - Tobacco use (ICD-10) Tension headache ?G44.209 - Tension-type headache, unspecified, not intractable (ICD-10) Paresthesia of both feet ?R20.2 - Paresthesia of skin (ICD-10) Generalized anxiety disorder (07/10/15) ?F41.1 - Generalized anxiety disorder (ICD-10) Fracture of rib ?S22.39XA - Fracture of one rib, unspecified side, initial encounter for closed fracture (ICD-10) Dental abscess ?K04.7 - Periapical abscess without sinus (ICD-10) Community acquired pneumonia ?J18.9 - Pneumonia, unspecified organism (ICD-10) Calculus of kidney ?N20.0 - Calculus of kidney (ICD-10) Alcohol abuse ?F10.10 - Alcohol abuse, uncomplicated (ICD-10) Hypertension ?I10 - Essential (primary) hypertension (ICD-10) COPD (chronic obstructive pulmonary disease) ?J44.9 - Chronic obstructive pulmonary disease, unspecified (ICD-10) Surgical History History of arthroscopy of right knee (2016) ?Z98.890 - Other specified postprocedural states (ICD-10) Social History Narrative: Smoker What is your current living situation?: I presently have a place to live Problems where you live: no known problems In the past 12 months, utilities in danger of being shut off: no In past 12 months, lack of transportation kept you from medical appts, meetings, work, or getting things needed for daily living: no In the past 12 mos, have been you worried that your food would run out before you had money to buy more?: never true In the past 12 mos, the food you bought just didn't last and you didn't have money to buy more?: never true Smoking Status: Current every day smoker What tobacco products do you use: cigarettes Smoking packs per day: 0.5 Smoking cigarettes per day: 10.0 Years smoked: 20 Smoking pack-years: 10.00 Do you use any of these nicotine containing products: None Second hand tobacco smoke exposure: No How often do you have a drink containing alcohol: 2-4 times a month How many standard drinks containing alcohol do you have on a typical day: 5 or 6 How often do you have six or more drinks on one occasion: Weekly AUDIT-C Alcohol total score: 7 Non-prescribed substance use: denies use How often does anyone, including family, friends and others, physically hurt you: never How often does anyone, including family, friends and others, insult or talk down to you: never How often does anyone, including family, friends and others, threaten you with harm: never How often does anyone, including family, friends and others, scream or curse at you: never Little interest or pleasure in doing things: not at all Feeling down, depressed, or hopeless: not at all service: No Exam Narrative: Exam Narrative: Constitutional: Well-developed, well-nourished, no acute distress. HEENT: Normocephalic, atraumatic. Neck: Normal range of motion. Nontender. Supple. Heart: Regular. No murmurs. Normal rate. Intact distal pulses. Lungs: Clear to auscultation. No chest discomfort. No wheezes, rhonchi, or rales. Abdomen: Normal bowel sounds. Nontender. No rebound tenderness. Genitalia: Deferred. Back: No midline tenderness. Normal range of motion. Extremities: Normal range of motion. No injury. Skin: Intact. No rash. Warm. No erythema or pallor. Neurologic: No altered sensation. No weakness. Alert and oriented. Psychiatric: No suicidality. No anxiety or depression. No insomnia. Nursing notes and vitals signs are reviewed. Const: Vital Signs, click to edit/add: Vital Signs - 24 hr 02/18/23 20:20 Temperature 97.3 F L Pulse Rate [Pulse Oximeter] 76 Respiratory Rate 20 Blood Pressure [Ri ght Upper Arm] 116/84 Pulse Oximetry 97 Oxygen Delivery Me thod Room Air Course Vital Signs Vital signs: Initial Vital Signs Temperature 97.3 F L 02/18/23 20:20 Temperature Source Temporal Artery Scan 02/18/23 20:20 Pulse Rate 76 02/18/23 20:20 Pulse Strength 0+ Absent 02/18/23 20:20 Respiratory Rate 20 02/18/23 20:20 Blood Pressure 116/84 02/18/23 20:20 Blood Pressure Mean 94 02/18/23 20:20 Blood Pressure Position Sitting 02/18/23 20:20 Pulse Oximetry 97 02/18/23 20:20 Oxygen Delivery Method Room Air 02/18/23 20:20 Vital Signs Temperature 97.3 F L 02/18/23 20:20 Pulse Rate 76 02/18/23 20:20 Respiratory Rate 20 02/18/23 20:20 Blood Pressure 116/84 02/18/23 20:20 Pulse Oximetry 97 02/18/23 20:20 Oxygen Delivery Method Room Air 02/18/23 20:20 Temperature 97.3 F L 02/18/23 20:20 Pulse Rate 76 02/18/23 20:20 Respiratory Rate 20 02/18/23 20:20 Blood Pressure 116/84 02/18/23 20:20 Pulse Oximetry 97 02/18/23 20:20 Oxygen Delivery Method Room Air 02/18/23 20:20 Medications Administered Medications: Generic Name Dose Route Start Last Admin Trade Name Liliane PRN Reason Stop Dose Admin Dexamethasone 10 mg 02/18/23 22:04 02/18/23 22:18 Dexamethasone 10 Mg/Ml Inj PO 02/18/23 22:05 10 mg ONCE ONE Administration Medical Decision Making MDM Narrative Medical decision making narrative: This patient comes in reporting persistent cough and generalized malaise. He was diagnosed with COVID about 10 days ago. He finished a course of Paxlovid. Today he arrives with normal vital signs and his exam is reassuring. Nasal pharyngeal swab returns negative for COVID, influenza, and RSV. The patient did receive an oral dose of dexamethasone 10 mg. He is okay to return home. Prescriptions are provided for Medrol Dosepak and Tylenol 3. Lab Data Labs: Lab Results 02/18/23 Range/Units 20:20 SARS-CoV-2 (PCR) Negative SARS-CoV-2 (Negative) Influenza Type A (PCR) Negative PCR FLU A (Negative) Influenza Type B (PCR) Negative PCR FLU B (Negative) RSV (PCR) Negative PCR RSV (Negative) Imaging Data Chest x-ray: Radiologist's impression: No acute findings and no significant change from the prior exam. Discharge Plan Discharge Clinical Impression: COPD (chronic obstructive pulmonary disease) Patient Disposition: Home, Self-Care Condition: Stable Additional Instructions: Take medication as prescribed. Follow up with MD return if worsening. Prescriptions: New acetaminophen-codeine 300-30 mg tablet 1 tab PO Q6H PRN (Reason: pain) Qty: 15 0RF methylprednisolone [Medrol (Armesh)] 4 mg tablets,dose pack See Rx Instructions .ROUTE .COMPLEX Qty: 21 0RF Rx Instructions: orally per package directions No Action calcium citrate-vitamin D3 200 mg-6.25 mcg (250 unit) tablet 2 tab PO DAILY aspirin 81 mg tablet,delayed release (DR/EC) 81 mg PO DAILY bupropion HCl [Wellbutrin XL] 300 mg tablet extended release 24 hr 300 mg PO QAM Qty: 30 5RF folic acid 1 mg tablet 1 mg PO QDAY Qty: 90 3RF Paxlovid 300 mg (150 mg x 2)-100 mg tablets,dose pack See Rx Instructions .ROUTE .COMPLEX Qty: 30 0RF Rx Instructions: take TWO 150 mg tablets of nirmatrelvir with ONE 100 mg tablet of ritonavir twice daily for 5 days hydrochlorothiazide 25 mg tablet 25 mg PO DAILY Qty: 90 1RF albuterol sulfate 90 mcg/actuation HFA aerosol inhaler 2 puff inhalation Q4H PRN (Reason: COPD) Qty: 8.5 0RF Breztri Aerosphere 160-9-4.8 mcg/actuation HFA aerosol inhaler 2 inh inhalation BID Qty: 10.7 3RF ipratropium-albuterol 0.5 mg-3 mg(2.5 mg base)/3 mL solution for nebulization 3 ml inhalation TID Qty: 180 0RF prednisone 50 mg tablet 50 mg PO QDAY Qty: 7 0RF metoprolol succinate 200 mg tablet extended release 24 hr 200 mg PO QDAY Qty: 90 0RF Follow Up/Referrals: [place] MD [Primary Care Provider] - Stand Alone [facility] Info Instructions
--- OUTSIDE RECORDS SUMMARY | 2023-02-18 22:12 | XMS_ITS | Clinical Summary ---
Author Name Unknown Organization [employer] [facility] [employer] [facility] Address [place], [place] [address] Care Team Providers Care Trimming Inspector Name Role Phone Vlad Reyes MD Unavailable [phone] Pcp, No Primary Care Provider Unavailabl e Allergies No known active allergies Medications Medication Sig Dispensed Refills Start Date End Date Status medication order composer Vitamin C Supplement, takes 500 mg daily 0 01/13/2013 Active potassium chloride (KLOR-CON M20) 20 mEq Extended-Release tabletIndications:Hyp okalemia Take 2 tablets by mouth once daily with a meal. 180 tablet 3 08/06/2015 Active Calcium Citrate-Vitamin D3 500 mg calcium -400 unit chewIndications:Decre ased bone density Take by mouth. Take 2 tabs daily 180 Tab 0 10/18/2015 Active triamcinolone 0.5% (ARISTOCORT) 0.5 % creamIndications:Skin rash Apply topically to affected area(s) 2 times daily. Use as needed on ankles. Do not use on face, axilla or groin. 15 g 1 10/18/2015 Active NebulizerIndications: COPD exacerbation (HC),Simple chronic bronchitis (HC) Nebulizer, disposable neb kit x 4, reuseable neb kit x 1, mask x 1, filters x 1. Length of need: 99 months 1 Device 0 04/01/2016 Active ibandronate (BONIVA) 150 mg tabletIndications:Dec reased bone density Take 1 tablet by mouth every 4 weeks. Take on empty stomach with full glass of water. Do not lie down for 1 hr. 3 tablet 3 04/29/2016 Active albuterol-ipratropium (DUONEB) (2.5-0.5 mg) in 3 mL NEBULIZATION solutionIndications:C OPD exacerbation (HC) Inhale 3 mL via a nebulizer 4 times daily if needed. 1 box 1 08/28/2016 Active tiotropium (SPIRIVA) 18 mcg inhalation capsuleIndications:Ch ronic obstructive pulmonary disease, unspecified COPD type (HC) Inhale 18 mcg by mouth once daily. 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 6 tablet 0 03/02/2017 Active carvedilol (COREG) 6.25 mg tabletIndications:SOB (shortness of breath),Other cardiomyopathy (HC) Take 1 tablet (6.25) twice a day with food 180 tablet 2 03/04/2017 Active fluticasone furoate-vilanterol (BREO ELLIPTA) 100-25 mcg/dose inhalerIndications:St age 3 severe COPD by GOLD classification (HC) Inhale 1 Puff by mouth once daily. 1 Inhaler 0 03/03/2017 Active cholecalciferol (VITAMIN D) 1,000 unit capsuleIndications:Vi tamin D deficiency Take 1 capsule by mouth once daily. 90 capsule 3 03/18/2017 Active buPROPion (WELLBUTRIN SR) 150 mg Sustained-Release tabletIndications:Tob acco dependence TAKE 1 TABLET BY MOUTH DAILY FOR 3 DAYS. INCREASE TO 2 TIMES DAILY. STOP SMOKING AFTER 1 WEEK 60 tablet 1 04/21/2017 Active predniSONE (DELTASONE) 20 mg tabletIndications:MATERIALS SCHEDULER D exacerbation (HC) Start 3 tabs daily x 3 days, then 2 tab daily x 3 days then 1 tab daily x 3 days then 1/2 daily x 4 days. 20 tablet 0 04/24/2017 Active roflumilast (DALIRESP) 500 mcg tabletIndications:MATERIALS SCHEDULER D, frequent exacerbations (HC) Take 500 mcg by mouth once daily. 90 tablet 3 06/02/2017 Active hydroCHLOROthiazide (HCTZ) 25 mg tabletIndications:Hyp ertension TAKE 1 TABLET BY MOUTH EVERY DAY 90 tablet 1 06/23/2017 Active predniSONE (DELTASONE) 20 mg tabletIndications:MATERIALS SCHEDULER D exacerbation (HC) 3 tabs x 2 days then 2 tabs x 2 days then 1 tab x 2 days then 1/2 tab x 2 days. 13 tablet 0 07/14/2017 Active losartan (COZAAR) 25 mg tabletIndications:Hyp ertension, unspecified type Take 1 tablet by mouth once daily. 90 tablet 0 10/27/2017 Active busPIRone 7.5 mg tabletIndications:Anx iety TAKE 1 TABLET BY MOUTH TWICE DAILY 180 tablet 0 01/05/2018 Active VENTOLIN HFA 90 mcg/actuation inhalerIndications:Ch ronic obstructive pulmonary disease, unspecified COPD type (HC) INHALE 2 PUFFS BY MOUTH EVERY 4 HOURS NEEDED FOR SHORTNESS OF BREATH 18 g 3 01/05/2018 Active Active Problems Problem Noted Date Diagnosed Date Abnormal echocardiogram 11/03/2016 Overview: cardiomyopathy with EF 45-50% on echocardiogram 09/2016. Had cardiology consult, negative stress testing. Needs follow up with Cardiology with echocardiogram in 1 year. Fracture of rib 04/01/2016 Calculus of kidney 04/01/2016 Anxiety 07/10/2015 Alcohol abuse, in remission 06/08/2015 Hypertension 12/21/2012 COPD (chronic obstructive pulmonary disease) Immunizations Name Administration Dates Next Due Influenza, IIV3 (Age >=3 years) 11/23/2012 Influenza, IIV4 11/05/2016, 6,11/30/2014,2013 Pneumococcal Poly,23-Valent (Pneumovax) 11/15/2015 Pneumococcal conj 13-Valent (Prevnar 13) 11/30/2014 Polio Virus, Unspecified 06/19/1978 Tdap 07/05/2013 Family History Medical History Relation Name Comments Cancer-breast Mother age 60 Hypertension Mother Relation Name Status Comments Mother Social History Tobacco Use Types Packs/Day Years Used Date Smoking Tobacco: Every Day Cigarettes 0.5 30 Smokeless Tobacco: Never Tobacco Cessation:Counseling Given: Yes Alcohol Use Standard Drinks/Week Comments No 0 (1 standard drink = 0.6 oz pur e alcohol) prior alcohol abuse, sober now Sex and Gender Information Value Date Recorded Sex Assigned at Not on file Gender Identity Not on file Sexual Orientation Not on file Obstetrics History Last Filed Vital Signs Vital Sign Reading Time Taken Comments Blood Pressure 122/80 06/02/2017 12:53 PM CDT Pulse 88 06/02/2017 12:53 PM CDT Temperature 36.5 ??C (97.7 ??F) 06/02/2017 12:53 PM C DT Respiratory Rate 18 10/14/2016 2:39 PM CDT Oxygen Saturation 96% 06/02/2017 12:53 PM CDT Inhaled Oxygen Concentration - - Weight 77.1 kg (170 lb) 06/02/2017 12:53 PM CDT Height 179.8 cm (5' 10.79) 03/18/2017 8:[address] Body Mass Index 23.85 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 [employer] Plan of Treatment Health Maintenance Due Date Last Done Comments COVID-19 vaccine series (#1) 01/24/1967 HIV for age 15-65 1981 Hepatitis C screening for age 18-79 1984 Colonoscopy through age 75 07/26/2011 Zoster (shingles) series for age 50+ (1 of 2) 2016 Depression screening for age 12+ 11/05/2017 11/05/2016, 11/15/2015, 10/18/2015, Additional history exists BMI (ht and wt on same day) for age 18+ 03/18/2018 03/18/2017, 01/06/2017, 11/05/2016, Additional history exists Lipids for age 45-75 01/05/2022 01/05/2017, 01/28/2016, 03/08/2015, Additional history exists Influenza for age 50-64 10/10/2022 11/06/19 17, 10/18/2015, 11/30/2014, Additional history exists Tetanus booster 07/06/2023 07/05/2013, 0402/2007 (Completed outside of [facility]) Tdap Completed 07/05/2013 Pneumococcal series for age 6-64 Aged Out 11/15/2015, 11/30/2014 No longer eligibl e based on patient's age to complete this topic Care Teams Trimming Inspector Relationship Specialty Start Date End Date Pcp, No . PCP - General 01/23/18 Vlad Reyes MD Orthopedics Surgery - Orthopedic 11/02/12
[2023-02-18] MEDS: dexAMETHasone 10 MG/ML inj PO (22:18)
== END 2023-02-18 23:00 | disposition home or self-care (01) ==
PROVIDERS: Emergency Provider Emergency Medicine Emergency Medical Services; PCP Family Medicine
DX: J44.9 Chronic obstructive pulmonary disease, unspecified (principal)
CPT/HCPCS: 71046; 87631; 99284; J1100

== ENCOUNTER 2023-08-17 13:59 | Outpatient (CLI) | payer OTHER, SELFPAY ==
--- OUTSIDE RECORDS SUMMARY | 2023-08-17 14:03 | XMS_ITS | Clinical Summary ---
Author Organization [employer] [facility] Address [place], [place] [address] Care Team Providers Care Certified Nursing Assistant Name Role Phone Vlad Reyes MD Unavailable [phone] Pcp, No Primary Care Provider Unavailabl e [...] Length of need: 99 months 1 Device 04/01/2016 Active ibandronate (BONIVA) 150 mg tabletIndications:Dec [...] 3 10/14/2016 Active predniSONE (DELTASONE) 10 mg tabletIndications:MEDICAL RESEARCHER D exacerbation (HC) Take 2 tablets for 2 days then 1 tablet for 2 days. 6 tablet 03/02/2017 Active carvedilol (COREG) 6.25 mg tabletIndications:SOB (shortness of breath),Other cardiomyopathy (HC) Take 1 tablet (6.25) twice a day with food 180 tablet 2 03/04/2017 Active fluticasone furoate-vilanterol (BREO ELLIPTA) 100-25 mcg/dose inhalerIndications:St age 3 severe COPD by GOLD classification (HC) Inhale 1 Puff by mouth once daily. 1 Inhaler 03/03/2017 Active cholecalciferol (VITAMIN D) 1,000 unit capsuleIndications:Vi tamin D deficiency Take 1 capsule by mouth once daily. 90 capsule 3 03/18/2017 Active buPROPion (WELLBUTRIN SR) 150 mg Sustained-Release tabletIndications:Tob acco dependence TAKE 1 TABLET BY MOUTH DAILY FOR 3 DAYS. INCREASE TO 2 TIMES DAILY. STOP SMOKING AFTER 1 WEEK 60 tablet 1 04/21/2017 Active predniSONE (DELTASONE) 20 mg tabletIndications:MEDICAL RESEARCHER D exacerbation (HC) Start 3 tabs daily x 3 days, then 2 tab daily x 3 days then 1 tab daily x 3 days then 1/2 daily x 4 days. 20 tablet 04/24/2017 Active roflumilast (DALIRESP) 500 mcg tabletIndications:MEDICAL RESEARCHER D, frequent exacerbations (HC) Take 500 mcg by mouth once daily. 90 tablet 3 06/02/2017 Active hydroCHLOROthiazide (HCTZ) 25 mg tabletIndications:Hyp ertension TAKE 1 TABLET BY MOUTH EVERY DAY 90 tablet 1 06/23/2017 Active predniSONE (DELTASONE) 20 mg tabletIndications:MEDICAL RESEARCHER D exacerbation (HC) 3 tabs x 2 days then 2 tabs x 2 days then 1 tab x 2 days then 1/2 tab x 2 days. 13 tablet 07/14/2017 Active losartan (COZAAR) 25 mg tabletIndications:Hyp ertension, unspecified type Take 1 tablet by mouth once daily. 90 tablet 10/27/2017 Active busPIRone 7.5 mg tabletIndications:Anx iety TAKE 1 TABLET BY MOUTH TWICE DAILY 180 tablet 01/05/2018 Active VENTOLIN HFA 90 mcg/actuation inhalerIndications:Ch [...] Body Mass Index 23.85 03/18/2017 8:07 AM HOSPITALITY TEAM MEMBER Plan of Treatment Health Maintenance Due Date Last Done Comments HIV for age 15-65 1981 Hepatitis C [...] 01/05/2022 01/05/2017, 01/28/2016, 03/08/2015, Additional history exists COVID-19 vaccine series (2022-24 season) 2022 Tetanus booster 07/06/2023 07/05/2013, 0402/2007 (Completed outside of [facility]) Influenza for age 50-64 10/11/2023 11/06/19 17, 10/18/2015, 11/30/2014, Additional history exists Tdap Completed 07/05/2013 Pneumococcal series for age 6-64 Aged Out 11/15/2015, 11/30/2014 No longer eligibl e based on patient's age to complete this topic Procedures Procedure Name Priority Date/Time Associated Diagnosis Comments LIPID PANEL W REFLEX MEASURED LDL Routine 01/05/2017 10:47 AM HOSPITALITY TEAM MEMBER Lipid screening from Last 3 Months or Most Recently Relevant to Health Maintenance Results * LIPID PANEL W REFLEX MEASURED LDL (01/05/2017 10:47 AM HOSPITALITY TEAM MEMBER) CHOLESTEROL,TOTAL 195 100 - 199 mg/dL 01/05/2017 5:15 PM HOSPITALITY TEAM MEMBER [facility] TRIGLYCERIDES 63 <150 mg/dL 01/05/2017 5:15 PM HOSPITALITY TEAM MEMBER [facility] HDL CHOLESTEROL 75 >40 mg/dL 7 5:15 PM HOSPITALITY TEAM MEMBER [facility] NON-HDL CHOLESTEROL 120 <145 mg/dl 01/05/2017 5:15 PM HOSPITALITY TEAM MEMBER [facility] CHOL/HDL RATIO 2.60 <4.50 01/05/2017 5:15 PM HOSPITALITY TEAM MEMBER [facility] LDL CHOLESTEROL 107 <=130 mg/dL 01/05/2017 5:15 PM HOSPITALITY TEAM MEMBER [facility] PROVIDER ORDERED STATUS RANDOM 01/05/2017 5:15 PM HOSPITALITY TEAM MEMBER [facility] Blood BLOOD SPECIMEN / Unknown Venipuncture / Unknown 01/05/2017 10:47 AM HOSPITALITY TEAM MEMBER 01/05/2017 10:48 AM HOSPITALITY TEAM MEMBER Chelsi Ocampo DO CHEMISTRY [facility] [employer] [facility] [address] [place] [address], from Last 3 Months or Most Recently Relevant to Health Maintenance Care Teams Certified Nursing Assistant Relationship Specialty Start Date End Date Pcp, No . PCP - General 01/23/18 Vlad Reyes MD Orthopedics Surgery - Orthopedic 11/02/12
== END 2023-08-17 14:00 | disposition home or self-care (01) ==
PROVIDERS: PCP Family Medicine; Visit Provider Family Medicine
DX: I10 Essential (primary) hypertension (principal); Z13.220 Encounter for screening for lipoid disorders; Z12.5 Encounter for screening for malignant neoplasm of prostate
CPT/HCPCS: 80048; 80061; 84460; 85025; G0103

== ENCOUNTER 2024-03-11 11:27 | Emergency (ER) | payer OTHER, SELFPAY ==
[2024-03-11] VITALS (12 sets, daily range): BP systolic 114–166; BP diastolic 74–109; PULSE 63–82; RESP 36; TEMP 36.3; O2SAT 91–93; BMI 22.6
[2024-03-11] MEDS: IPRAT-ALBUT 0.5-2.5 MG/3 ML NEB 1 NEB IH ×2 (11:42→11:49)
--- NOTE | 2024-03-11 11:57 | ED.GENADULT ---
HPI - General Adult General Date Seen: 03/11/24 Chief complaint: Shortness of Breath/Dyspnea Stated complaint: Difficulty breathing, COPD Time Seen by Provider: 03/11/24 11:34 History of Present Illness HPI narrative: patient is a 58-year-old male with a history of COPD, uses regular inhalers. Over the past week and half he has been having bouts of shortness of breath more severe than usual. He is not on home oxygen. He denies fevers. He has had some chest pain with breathing, no exertional chest pain. No unusual leg pain or swelling. He has had a cough and was coughing up some green sputum now more clear. He continues to smoke but says he is down to about a pack lasting a week. Related Data Home Medications ?Medication ?Instructions ?Recorded ?Confirmed aspirin 81 mg tablet,delayed 81 mg PO DAILY 01/17/22 08/17/23 release calcium 200 mg (as 2 tab PO DAILY 01/17/22 08/17/23 citrate)-vitamin D3 6.25 mcg (250 unit) tablet Previous Rx's ?Medication ?Instructions ?Recorded bupropion HCl 300 mg 24 hr tablet, 300 mg PO QAM #30 tabs 03/14/22 extended release (Wellbutrin XL) albuterol sulfate 90 mcg/actuation 2 puff inhalation Q4H PRN COPD 09/29/22 aerosol inhaler #8.5 grams folic acid 1 mg tablet 1 mg PO QDAY #90 tabs 04/23/23 methotrexate sodium 2.5 mg tablet 15 mg (6 x 2.5 mg) PO QWEEK #78 04/23/23 tabs montelukast 10 mg tablet 10 mg PO QDAY #90 tabs 04/23/23 (Singulair) naproxen 500 mg tablet 500 mg PO BID #60 tabs 04/23/23 metoprolol succinate 200 mg 200 mg PO QDAY #90 tabs 05/08/23 tablet,extended release 24 hr ipratropium 0.5 mg-albuterol 3 mg 3 ml inhalation TID #180 mL 06/30/23 (2.5 mg base)/3 mL nebulization soln fluticasone fur. 200 mcg-umeclid 1 inh inhalation QDAY #60 ea 08/17/23 62.5 mcg-vilant 25 mcg inhalat.powder (Trelegy Ellipta) nicotine 7 mg/24 hr daily 1 patch transdermal Q24H #28 ea 08/17/23 transdermal patch prednisone 10 mg tablet 10 mg PO QDAY #90 tabs 08/17/23 hydrochlorothiazide 25 mg tablet 25 mg PO DAILY #90 tabs 08/27/23 prednisone 20 mg tablet 10 - 40 mg (0.5 - 2 x 20 mg) PO 03/07/24 QDAY #14 tabs Allergies Allergy/AdvReac Type Severity Reaction Status Date / Time No Known Drug Allergies Allergy Verified 08/17/23 13:02 Review of Systems Status of ROS: Reports: 10 or more systems reviewed and unremarkable except as noted in History and below [facility] Medical History Closed fracture of left great toe ?S92.402A - Displaced unspecified fracture of left great toe, initial encounter for closed fracture (ICD-10) COVID-19 ?U07.1 - COVID-19 (ICD-10) Primary hypertension ?I10 - Essential (primary) hypertension (ICD-10) Psoriasis ?L40.9 - Psoriasis, unspecified (ICD-10) Scalp psoriasis ?L40.9 - Psoriasis, unspecified (ICD-10) Tobacco abuse ?Z72.0 - Tobacco use (ICD-10) Tension headache ?G44.209 - Tension-type headache, unspecified, not intractable (ICD-10) Paresthesia of both feet ?R20.2 - Paresthesia of skin (ICD-10) Generalized anxiety disorder (07/10/15) ?F41.1 - Generalized anxiety disorder (ICD-10) Fracture of rib ?S22.39XA - Fracture of one rib, unspecified side, initial encounter for closed fracture (ICD-10) Dental abscess ?K04.7 - Periapical abscess without sinus (ICD-10) Community acquired pneumonia ?J18.9 - Pneumonia, unspecified organism (ICD-10) Calculus of kidney ?N20.0 - Calculus of kidney (ICD-10) Alcohol abuse ?F10.10 - Alcohol abuse, uncomplicated (ICD-10) COPD (chronic obstructive pulmonary disease) ?J44.9 - Chronic obstructive pulmonary disease, unspecified (ICD-10) Surgical History History of arthroscopy of right knee (2016) ?Z98.890 - Other specified postprocedural states (ICD-10) Social History Narrative: Smoker, seeking disability, last worked 04/09/2023 What is your current living situation?: I presently have a place to live Problems where you live: no known problems In the past 12 months, utilities in danger of being shut off: no In past 12 months, lack of transportation kept you from medical appts, meetings, work, or getting things needed for daily living: no In the past 12 mos, have been you worried that your food would run out before you had money to buy more?: never true In the past 12 mos, the food you bought just didn't last and you didn't have money to buy more?: never true Smoking Status: Current every day smoker What tobacco products do you use: cigarettes Smoking packs per day: 0.5 Smoking cigarettes per day: 10.0 Years smoked: 20 Smoking pack-years: 10.00 Do you use any of these nicotine containing products: None Second hand tobacco smoke exposure: No How often do you have a drink containing alcohol: 2-4 times a month How many standard drinks containing alcohol do you have on a typical day: 5 or 6 How often do you have six or more drinks on one occasion: Weekly AUDIT-C Alcohol total score: 7 Non-prescribed substance use: denies use How often does anyone, including family, friends and others, physically hurt you: never How often does anyone, including family, friends and others, insult or talk down to you: never How often does anyone, including family, friends and others, threaten you with harm: never How often does anyone, including family, friends and others, scream or curse at you: never service: No Exam Narrative: Exam Narrative: Vital signs reviewed In general, alert mid aged male in moderate respiratory distress. Head: Normocephalic, atraumatic. Eyes: Sclera clear. Pupils equal and reactive. ENT: Mucous membranes moist. Neck: Supple without adenopathy. Heart: Regular rate and rhythm without murmur. Lungs: He has scattered wheezes and decreased breath sounds throughout. He is leaning forward with his hands on his knees, significant accessory muscle use. Abdomen: Soft, nontender to palpation. Extremities: Well perfused, pulses intact. No significant edema. Neurologic: Alert, conversant. Speech fluent, face symmetric. Moves all extremities equally. Skin: Warm, dry well perfused. Affect: Normal. Const: Vital Signs, click to edit/add: Vital Signs - 24 hr 03/11/24 11:33 03/11/24 11:46 03/11/24 11:47 Temperature 97.4 F L Pulse Rate 77 82 Pulse Rate [Pulse Oximeter] 75 Respiratory Rate 36 H Blood Pressure 138/74 Blood Pressure [Le ft Upper Arm] 166/109 H Pulse Oximetry 91 93 93 Oxygen Delivery Me thod Room Air 03/11/24 12:00 03/11/24 12:02 03/11/24 12:15 Temperature Pulse Rate 74 74 68 Pulse Rate [Pulse Oximeter] Respiratory Rate Blood Pressure 114/80 Blood Pressure [Le ft Upper Arm] Pulse Oximetry 92 92 91 Oxygen Delivery Me thod 03/11/24 12:30 03/11/24 12:32 03/11/24 12:33 Temperature Pulse Rate 74 71 76 Pulse Rate [Pulse Oximeter] Respiratory Rate Blood Pressure 121/81 Blood Pressure [Le ft Upper Arm] Pulse Oximetry 91 93 92 Oxygen Delivery Me thod 03/11/24 12:45 03/11/24 13:00 03/11/24 13:02 Temperature Pulse Rate 63 68 64 Pulse Rate [Pulse Oximeter] Respiratory Rate Blood Pressure 142/100 H Blood Pressure [Le ft Upper Arm] Pulse Oximetry 91 92 91 Oxygen Delivery Me thod Course Course ED Course: On arrival, patient was placed in stable 1. Respiratory therapy was called and he was given DuoNeb x2. He was maintained on cardiac monitoring and pulse oximetry. an EKG shows significant baseline artifact but a normal sinus rhythm, ventricular rate of 75. No acute ST segment changes on this somewhat limited EKG. T-waves are unremarkable. Diagnostic considerations would include COPD exacerbation, viral infection, pneumonia, congestive heart failure, pulmonary embolism, acute coronary syndrome among others. He has responded fairly well to DuoNebs, at this time I do not think he needs noninvasive respiratory support. He does say that he received a prescription from his primary doctor recently for prednisone and he took a dose of that today but will augment with IV Solu-Medrol. Labs pending. Chest x-ray by my review does not show congestive heart failure, significant cardiomegaly, infiltrate, pneumothorax or other acute findings. Awaiting final radiology read. Radiology reads his chest x-ray as negative for acute findings. He is markedly improved at this time and breathing easily. He is mildly hypoxic with O2 sats in the 91-92 range with his COPD I suspect that is not significantly abnormal. His gas shows a normal pCO2, normal pH. Troponin is negative, viral swab is negative, BNP is normal and D-dimer is less than 0.27. I think it is reasonable to let him go home. Will have him continue the prednisone that was previously prescribed and will add azithromycin to treat for COPD exacerbation. He has had some viral symptoms over the past week and a half, he says that this is not uncommon for him to get worse when he has a respiratory illness. Would recommend primary care follow-up if not improving over the next few days, return at any time for worsening. Vital Signs Vital signs: Initial Vital Signs Temperature 97.4 F L 03/11/24 11:33 Temperature Source Temporal Artery Scan 03/11/24 11:33 Pulse Rate 75 03/11/24 11:33 Pulse Rhythm Regular 03/11/24 11:33 Respiratory Rate 36 H 03/11/24 11:33 Blood Pressure 166/109 H 03/11/24 11:33 Blood Pressure Mean 128 H 03/11/24 11:33 Blood Pressure Position High-Fowlers 03/11/24 11:33 Pulse Oximetry 91 03/11/24 11:33 Oxygen Delivery Method Room Air 03/11/24 11:33 Vital Signs Temperature 97.4 F L 03/11/24 11:33 Pulse Rate 75 03/11/24 11:33 Respiratory Rate 36 H 03/11/24 11:33 Blood Pressure 166/109 H 03/11/24 11:33 Pulse Oximetry 91 03/11/24 11:33 Oxygen Delivery Method Room Air 03/11/24 11:33 Temperature 97.4 F L 03/11/24 11:33 Pulse Rate 64 03/11/24 13:02 Respiratory Rate 36 H 03/11/24 11:33 Blood Pressure 142/100 H 03/11/24 13:02 Pulse Oximetry 91 03/11/24 13:02 Oxygen Delivery Method Room Air 03/11/24 11:33 Medications Administered Medications: Discontinued Medications Generic Name Dose Route Start Last Admin Trade Name Liliane PRN Reason Stop Dose Admin Albuterol/Ipratropium 1 [facility] 03/11/24 11:37 03/11/24 11:42 Iprat-Albut 0.5-2.5 Mg/3 Ml [facility] 03/11/24 11:38 1 [facility] ONCE ONE Administration Albuterol/Ipratropium 1 [facility] 03/11/24 11:48 03/11/24 11:49 Iprat-Albut 0.5-2.5 Mg/3 Ml [facility] 03/11/24 11:49 1 [facility] ONCE ONE Administration Methylprednisolone Sodium Succinate 125 mg 03/11/24 11:37 03/11/24 12:04 Methylprednisolone Sod Succ 62.5 Mg/Ml (125) IVP 03/11/24 11:38 125 mg ONCE ONE Administration Medical Decision Making Lab Data Labs: Lab Results 03/11/24 03/11/24 03/11/24 Range/Units 11:38 11:50 12:00 WBC 10.09 (4.50-11.00) K/uL RBC 4.77 (4.30-5.90) m/uL Hgb 14.5 (13.5-17.5) gm/dL Hct 42.9 (37.0-53.0) % MCV 90 (80-100) fL MCH 30 (26-34) pg MCHC 34 (32-36) gm/dL RDW Coeff of Lidia 13.2 (11.5-15.5) % Plt Count 232 (140-440) K/uL Neut % (Auto) 61.9 (42.0-72.0) % Lymph % (Auto) 18.6 L (20-44) % Mills % (Auto) 6.4 (0.0-11.0) % Eos % (Auto) 11.9 H (0.0-7.0) % Baso % (Auto) 1.0 (0.0-3.0) % Neut # (Auto) 6.24 (1.7-7.0) K/uL Lymph # (Auto) 1.90 (0.90-2.90) K/uL Mills # (Auto) 0.60 (0.00-0.90) K/UL Eos # (Auto) 1.20 H (0.00-0.50) K/uL Baso # (Auto) 0.10 (0.00-0.30) K/uL Abs Immat Gran (auto) 0.02 (0.00-0.30) K/uL Imm/Tot Granulo (auto) 0.2 % D-Dimer Quant (PE/DVT) < 0.27 (0.00-0.50) ug/ml VBG pH 7.428 (7.32-7.43) VBG pCO2 40 (40-50) mmHG VBG pO2 50.9 H (25-47) mmHG VBG HCO3 27 (21-28) mmol/L Sodium 135 (135-149) mmol/L Potassium 4.9 (3.6-5.1) mmol/L Chloride 101 (96-114) mmol/L Carbon Dioxide 24 (20-32) mmol/L Anion Gap 10 (7-15) mEq/L BUN 23 (7-30) mg/dL Creatinine 0.9 (0.5-1.5) mg/dL Estimated Creat Clear 94.12 Estimated GFR 100 ml/min Glucose 105 (60-115) mg/dL Calcium 9.6 (8.4-10.6) mg/dL C-Reactive Protein < 0.5 L (0.5-1.0) mg/dL NT-Pro-B Natriuret Pep 156 pg/mL SARS-CoV-2 (PCR) Negative SARS-CoV-2 (Negative) Influenza Type A (PCR) Negative PCR FLU A (Negative) Influenza Type B (PCR) Negative PCR FLU B (Negative) RSV (PCR) Negative PCR RSV (Negative) POC Troponin I 0.00 L (0.01-0.04) ng/ml Discharge Plan Discharge Clinical Impression: COPD (chronic obstructive pulmonary disease) Patient Disposition: Home, Self-Care Condition: Improved Instructions: COPD (Chronic Obstructive Pulmonary Disease) (ED) Additional Instructions: Take the prednisone as prescribed by your doctor. Add azithromycin as prescribed. Use your inhalers. Return any time if you feel that your breathing is not well controlled on these medications. See your doctor if you are not feeling better over the next few days. Prescriptions: No Action folic acid 1 mg tablet 1 mg PO QDAY Qty: 90 3RF methotrexate sodium 2.5 mg tablet 15 mg PO QWEEK Qty: 78 0RF montelukast [Singulair] 10 mg tablet 10 mg PO QDAY Qty: 90 3RF naproxen 500 mg tablet 500 mg PO BID Qty: 60 5RF calcium citrate-vitamin D3 200 mg-6.25 mcg (250 unit) tablet 2 tab PO DAILY aspirin 81 mg tablet,delayed release (DR/EC) 81 mg PO DAILY bupropion HCl [Wellbutrin XL] 300 mg tablet extended release 24 hr 300 mg PO QAM Qty: 30 5RF Trelegy Ellipta 200-62.5-25 mcg blister with device 1 inh inhalation QDAY Qty: 60 5RF prednisone 10 mg tablet 10 mg PO QDAY Qty: 90 0RF nicotine 7 mg/24 hr patch 24 hour 1 patch transdermal Q24H Qty: 28 5RF albuterol sulfate 90 mcg/actuation HFA aerosol inhaler 2 puff inhalation Q4H PRN (Reason: COPD) Qty: 8.5 0RF metoprolol succinate 200 mg tablet extended release 24 hr 200 mg PO QDAY Qty: 90 3RF ipratropium-albuterol 0.5 mg-3 mg(2.5 mg base)/3 mL solution for nebulization 3 ml inhalation TID Qty: 180 2RF hydrochlorothiazide 25 mg tablet 25 mg PO DAILY Qty: 90 1RF prednisone 20 mg tablet 10 - 40 mg PO QDAY Qty: 14 0RF Rx Instructions: 2 QD x 4 days, 1 QD x 4 days, 1/2 QD x 4 days Follow Up/Referrals: Los Flower MD [Primary Care Provider] - Stand Alone Forms: KeepGo Info Instructions
[2024-03-11 11:59] LABS: Eosinophils Percent Auto 11.9 % (0.0-7.0); HCO3 VBG 27 mmol/L (21-28); Hematocrit* 42.9 % (37.0-53.0); Hemoglobin* 14.5 gm/dL (13.5-17.5); Immature Granulocytes Abs Auto 0.02 K/uL (0.00-0.30); Immature Granulocytes Pct Auto 0.2 %; Lymphocytes Percent Auto 18.6 % (20-44); Mean Corpuscular HGB Conc 34 gm/dL (32-36); Mean Corpuscular Hemoglobin 30 pg (26-34); Mean Corpuscular Volume 90 fL (80-100); Monocytes Percent Auto 6.4 % (0.0-11.0); Neutrophils Absolute Auto 6.24 K/uL (1.7-7.0); Neutrophils Percent Auto 61.9 % (42.0-72.0); PCO2 VBG 40 mmHG (40-50); PO2 VBG 50.9 mmHG (25-47); Platelet Count* 232 K/uL (140-440); RDW Coefficient of Variation % 13.2 % (11.5-15.5); Red Blood Count* 4.77 m/uL (4.30-5.90); White Blood Count* 10.09 K/uL (4.50-11.00); pH VBG 7.428 (7.32-7.43)
[2024-03-11 12:02] LABS: Slide Review Reflex No
[2024-03-11] MEDS: METHYLPREDNISOLONE SOD SUCC 62.5 MG/ML (125) 125 MG IVP (12:04)
[2024-03-11 12:16] LABS: Chloride* 101 mmol/L (96-114); Sodium* 135 mmol/L (135-149)
[2024-03-11 12:17] LABS: Potassium* 4.9 mmol/L (3.6-5.1)
[2024-03-11 12:19] LABS: Creatinine* 0.9 mg/dL (0.5-1.5); Est. Creatinine Clearance* 94.12; Estimated Glomerular Filt Rate 100 ml/min
[2024-03-11 12:20] LABS: Anion Gap 10 mEq/L (7-15); Blood Urea Nitrogen* 23 mg/dL (7-30); Calcium* 9.6 mg/dL (8.4-10.6); Carbon Dioxide* 24 mmol/L (20-32); Glucose* 105 mg/dL (60-115)
[2024-03-11 12:25] LABS: C Reactive Protein* < 0.5 mg/dL (0.5-1.0); D Dimer Quantitative* < 0.27 ug/ml (0.00-0.50)
[2024-03-11 12:33] LABS: NT Pro B Type NatriureticPept* 156 pg/mL
[2024-03-11 12:51] LABS: PCR FLU A Negative PCR FLU A (Negative); PCR FLU B Negative PCR FLU B (Negative); PCR RSV Negative PCR RSV (Negative); SARS PCR* Negative SARS-CoV-2 (Negative)
== END 2024-03-11 13:18 | disposition home or self-care (01) ==
PROVIDERS: Emergency Provider Emergency Medicine; PCP Family Medicine
DX: J44.9 Chronic obstructive pulmonary disease, unspecified (principal)
CPT/HCPCS: 36415; 71045; 80048; 82803; 83880; 84484; 85025; 85379; 86140; 87637; 93005; 94640; 94761; 99284; J2919

== ENCOUNTER 2024-05-22 05:45 | Outpatient (CLI) | payer OTHER, SELFPAY | END 2024-05-22 05:46 | disposition home or self-care (01) | LOC: AMB 05-23 15:34 | PROVIDERS: PCP Family Medicine; Visit Provider Family Medicine | DX: R06.09 Other forms of dyspnea (principal) | CPT/HCPCS: A0425; A0427 ==

== ENCOUNTER 2024-05-22 06:09 | Emergency (ER) | payer OTHER, SELFPAY ==
[2024-05-22] VITALS (7 sets, daily range): BP systolic 121–137; BP diastolic 91–100; PULSE 59–77; RESP 20–26; TEMP 36.7; O2SAT 92–95; BMI 25.2
--- OUTSIDE RECORDS SUMMARY | 2024-05-22 06:12 | XMS_ITS | Clinical Summary ---
Author Organization [facility] Address [address] [place] [id number] Care Team Providers Care System Administrator Name Role Phone Vlad Reyes MD Unavailable [phone] Pcp, No Primary Care Provider Unavailabl e Allergies No known active allergies Medications medication order composer Vitamin C Supplement, takes 500 mg daily 0 3 Active potassium chloride (KLOR-CON M20) 20 mEq Extended-Release tabletIndications: Hypokalemia Take 2 tablets by mouth once daily with a meal. 180 tablet 3 6 Active Calcium Citrate-Vitamin D3 500 mg calcium -400 unit chewIndications:De creased bone density Take by mouth. Take 2 tabs daily 180 Tab 0 6 Active triamcinolone 0.5% (ARISTOCORT) 0.5 % creamIndications:S kin rash Apply topically to affected area(s) 2 times daily. Use as needed on ankles. Do not use on face, axilla or groin. 15 g 1 6 Active NebulizerIndicatio ns:COPD exacerbation (HC),Simple chronic bronchitis (HC) Nebulizer, disposable neb kit x 4, reuseable neb kit x 1, mask x 1, filters x 1. Length of need: 99 months 1 Device 7 Active ibandronate (BONIVA) 150 mg tabletIndications: Decreased bone density Take 1 tablet by mouth every 4 weeks. Take on empty stomach with full glass of water. Do not lie down for 1 hr. 3 tablet 3 7 Active albuterol-ipratrop ium (DUONEB) (2.5-0.5 mg) in 3 mL NEBULIZATION solutionIndication s:COPD exacerbation (HC) Inhale 3 mL via a nebulizer 4 times daily if needed. 1 box 1 7 Active tiotropium (SPIRIVA) 18 mcg inhalation capsuleIndications :Chronic obstructive pulmonary disease, unspecified COPD type (HC) Inhale 18 mcg by mouth once daily. 90 capsule 3 7 Active predniSONE (DELTASONE) 10 mg tabletIndications: COPD exacerbation (HC) Take 2 tablets for 2 days then 1 tablet for 2 days. 6 tablet 8 Active carvedilol (COREG) 6.25 mg tabletIndications: SOB (shortness of breath),Other cardiomyopathy (HC) Take 1 tablet (6.25) twice a day with food 180 tablet 2 8 Active fluticasone furoate-vilanterol (BREO ELLIPTA) 100-25 mcg/dose inhalerIndications :Stage 3 severe COPD by GOLD classification (HC) Inhale 1 Puff by mouth once daily. 1 Inhaler 8 Active cholecalciferol (VITAMIN D) 1,000 unit capsuleIndications :Vitamin D deficiency Take 1 capsule by mouth once daily. 90 capsule 3 8 Active buPROPion (WELLBUTRIN SR) 150 mg Sustained-Release tabletIndications: Tobacco dependence TAKE 1 TABLET BY MOUTH DAILY FOR 3 DAYS. INCREASE TO 2 TIMES DAILY. STOP SMOKING AFTER 1 WEEK 60 tablet 1 8 Active predniSONE (DELTASONE) 20 mg tabletIndications: COPD exacerbation (HC) Start 3 tabs daily x 3 days, then 2 tab daily x 3 days then 1 tab daily x 3 days then 1/2 daily x 4 days. 20 tablet 8 Active roflumilast (DALIRESP) 500 mcg tabletIndications: COPD, frequent exacerbations (HC) Take 500 mcg by mouth once daily. 90 tablet 3 8 Active hydroCHLOROthiazid e (HCTZ) 25 mg tabletIndications: Hypertension TAKE 1 TABLET BY MOUTH EVERY DAY 90 tablet 1 8 Active predniSONE (DELTASONE) 20 mg tabletIndications: COPD exacerbation (HC) 3 tabs x 2 days then 2 tabs x 2 days then 1 tab x 2 days then 1/2 tab x 2 days. 13 tablet 8 Active losartan (COZAAR) 25 mg tabletIndications: Hypertension, unspecified type Take 1 tablet by mouth once daily. 90 tablet 8 Active busPIRone 7.5 mg tabletIndications: Anxiety TAKE 1 TABLET BY MOUTH TWICE DAILY 180 tablet 8 Active VENTOLIN HFA 90 mcg/actuation inhalerIndications :Chronic obstructive pulmonary disease, unspecified COPD type (HC) INHALE 2 PUFFS BY MOUTH EVERY 4 HOURS NEEDED FOR SHORTNESS OF BREATH 18 g 3 8 Active Active Problems Problem Noted Date Diagnosed Date Abnormal echocardiogram 11/03/2016 Overview (11/03/2016): cardiomyopathy with EF 45-50% on echocardiogram 09/2016. Had cardiology consult, negative stress testing. Needs follow up with Cardiology with echocardiogram in 1 year. Fracture of rib 04/01/2016 Calculus of kidney 04/01/2016 Anxiety 07/10/2015 Alcohol abuse, in remission 06/08/2015 Hypertension 12/21/2012 COPD (chronic obstructive pulmonary disease) Immunizations Immunization Administration Dates Next Due Influenza, IIV3 (Age [...] Recorded Sex Assigned at Not on file Legal Sex Male 5:27 AM RECEIVING CLERK Gender Identity Not on file Sexual Orientation Not on file Obstetrics History Last Filed Vital Signs Vital Sign Reading Time Taken Comments Blood Pressure 122/80 06/02/2017 12:53 PM CDT Pulse 88 06/02/2017 12:53 PM CDT Temperature 36.5 C (97.7 F) 06/02/2017 12:53 PM CDT Respiratory Rate 18 10/14/2016 2:39 PM CDT Oxygen Saturation 96% 06/02/2017 12:53 PM CDT Inhaled Oxygen Concentration - - Weight 77.1 kg (170 lb) 06/02/2017 12:53 PM CDT Height 179.8 cm (5' 10.79) 03/18/2017 8:[address] Body Mass Index 23.85 03/18/2017 8:07 AM RECEIVING CLERK Plan of Treatment Health Maintenance Due Date Last Done Comments HIV for age 15-65 1981 Hepatitis C screening for ag e 18-79 1984 Colonoscopy through age 75 07/26/2011 Zoster (shingles) series for age 50+ (1 of 2) 2016 Depression screening for age 12+ 11/05/2017 11/05/2016, 11/15/2015, 10/18/2015, Additional history exists BMI (ht and wt on same day) for age 18+ 03/18/2018 03/18/2017, 01/06/2017, 11/05/2016, Additional history exists Pneumococcal series for age 50+ (3 of 3 - PCV20 or PCV21) 11/14/2020 11/15/2015, 11/30/2014 Lipids for age 45-75 01/05/2022 01/05/2017, 01/28/2016, 03/08/2015, Additional history exists Tetanus booster 07/06/2023 07/05/2013, 04/02/2007 (Completed outside of [facility]) COVID-19 vaccine series ( season) 2023 Influenza Vaccine (Season Ended) 2024 11/05/2016, 10/18/2015, 11/30/2014, Additional history exists Tdap Completed 07/05/2013 Procedures Procedure Name Priority Date/Time Associated Diagnosis Comments LIPID PANEL W REFLEX MEASURED LDL Routine 01/05/2017 10:47 AM RECEIVING CLERK Lipid screening from Last 3 Months or Most Recently Relevant to Health Maintenance Results * LIPID PANEL W REFLEX MEASURED LDL (01/05/2017 10:47 AM RECEIVING CLERK) CHOLESTEROL,TOTAL 195 100 - 199 mg/dL 01/05/2017 5:15 PM RECEIVING CLERK [facility] TRIGLYCERIDES 63 <150 mg/dL 01/05/2017 5:15 PM RECEIVING CLERK [facility] HDL CHOLESTEROL 75 >40 mg/dL 7 5:15 PM RECEIVING CLERK [facility] NON-HDL CHOLESTEROL 120 <145 mg/dl 01/05/2017 5:15 PM RECEIVING CLERK [facility] CHOL/HDL RATIO 2.60 <4.50 01/05/2017 5:15 PM RECEIVING CLERK [facility] LDL CHOLESTEROL 107 <=130 mg/dL 01/05/2017 5:15 PM RECEIVING CLERK [facility] PROVIDER ORDERED STATUS RANDOM 01/05/2017 5:15 PM RECEIVING CLERK [facility] Blood BLOOD SPECIMEN / Unknown Venipuncture / Unknown 01/05/2017 10:47 AM RECEIVING CLERK 01/05/2017 10:48 AM RECEIVING CLERK us Chelsi Ocampo DO CHEMISTRY Final Resu lt [facility] [address] [place] [address], from Last 3 Months or Most Recently Relevant to Health Maintenance Insurance [facility] Care Teams System Administrator Relationship Specialty Start Date End Date Pcp, No . PCP - General 01/23/18 Vlad Reyes MD Orthopedics Surgery - Orthopedic 11/02/12
--- OUTSIDE RECORDS SUMMARY | 2024-05-22 06:12 | XMS_ITS | Clinical Summary ---
Author Organization [facility] Address [address] [place] [address] Care Team Providers Care Operations Examiner Name Role Phone Unavailable Primary Care Provider Unavailabl e Source Comments Patient records contain information from all sites at [facility]. For routine questions regarding patient records, call [phone] during business hours, M-F 8:00 AM - 5:00 PM Central Time. Record requests for emergency care only can be directed to [phone] at any time.[facility] Allergies No known active allergies Medications metoprolol succinate (Toprol XL) 200 mg 24 hr tablet Take 200 mg by mouth daily. 08/06/2023 Active ipratropium-alb uteroL (DuoNeb) 0.5-2.5 mg/3 mL nebulizer solution Inhale 3 mL 4 (four) times a day as needed. 08/28/2016 Active hydroCHLOROthia zide (HydroDiuril) 25 mg tablet Take 1 tablet by mouth daily. 06/23/2017 Active Trelegy Ellipta 200-62.5-25 mcg inhaler Inhale 1 puff daily. 08/17/2023 Active cholecalciferol (Vitamin D3) 25 mcg (1,000 Unit) capsule Take 1 capsule by mouth daily. 03/18/2017 Active nicotine (Nicoderm CQ) 7 mg/[address] 1 patch on the skin daily. 09/15/2023 Active predniSONE (Deltasone) 10 mg tablet Take 10 mg by mouth daily. Active montelukast (Singulair) 10 mg tablet Take 10 mg by mouth daily. Active roflumilast (Daliresp) 500 mcg tablet Take 1 tablet (500 mcg total) by mouth daily. 90 tablet 3 10/08/2023 Active Social History Tobacco Use Types Packs/Day Years Used Date Smoking Tobacco: Some Days Cigarettes Tobacco Cessation:Ready to Q uit: Not Asked; Counseling Given: Not Answered Alcohol Use Standard Drinks/Week Comments Yes 1 (1 standard drink = 0.6 oz pur e alcohol) occasionally Dental Answer Date Recorded Dental: Regular Dentist Unknown 08/25/19 Sex and Gender Information Value Date Recorded Sex Assigned at Not on file Legal Sex Male 9:23 AM LAST CLEANER Gender Identity Not on file Sexual Orientation Not on file Last Filed Vital Signs Vital Sign Reading Time Taken Comments Blood Pressure 137/85 10/08/2023 12:59 PM CDT Pulse 51 10/08/2023 12:55 PM CDT Temperature - - Respiratory Rate 16 10/08/2023 12:5 5 PM CDT sob with activity Oxygen Saturation 100% 10/08/2023 12: 55 PM CDT Inhaled Oxygen Concentration - - Weight 77.8 kg (171 lb 9.6 oz) 10/08/2023 12:55 PM CDT Height 180.3 cm (5' 11) 10/08/2023 12: 55 PM CDT Body Mass Index 23.93 10/08/2023 12:55 PM CDT Plan of Treatment Health Maintenance Due Date Last Done Comments CT Colonography 1966 Cologuard 1966 Colonoscopy 1966 Colorectal Cancer Screening 1966 FIT 1966 Fasting Glucose for Diabetes Screening 1966 HIV Screening 1966 Hepatitis C Screening 1966 Lipid (Cholesterol) Screening 1966 IPV Vaccines (2 of 3 - 4-dos e series) 07/17/1978 06/19/1978 Hepatitis B Vaccines (1 of 3 - 19+ 3-dose series) 1985 Pneumococcal vaccine (50+ ye ars) (3 of 3 - PCV20 or PCV21) 11/14/2020 11/15/2015, 11/30/2014 COVID-19 Vaccine (3 - 2023-2 5 season) 2023 11/23/2020, 04/28/2020 Influenza Vaccine (#1) 2023 , 11/25/2018, 11/05/2016, Additional history exists Depression Screening (Annual PHQ-2) 02/10/2024 DTaP,Tdap,and Td Vaccines (3 - Td or Tdap) 08/16/2033 08/17/2023, 07/05/2013 Zoster Vaccines Completed 05/10/2021, 02/22/2021
--- NOTE | 2024-05-22 07:49 | CRLHL7_ITS ---
For Patients: As a result of the Cures Act, medical imaging exams and procedure reports are released immediately into your electronic medical record. You may view this report before your referring provider. If you have questions, please contact your health care provider. INDICATION: Dyspnea TECHNIQUE: Chest 2 views. COMPARISON: Chest x-ray 03/11/2024 FINDINGS: The heart is normal in size. The pulmonary vasculature is within normal limits. The lungs are clear without focal consolidation, pleural effusion or pneumothorax. There are mild degenerative changes of the thoracic spine. IMPRESSION: No acute process. Dictated by Kaylen Montoya MD @ 05/22/2024 8:34:11 AM Dictated by: Kaylen Montoya MD @ 05/22/2024 08:34:25 (Electronically Signed)
--- OUTSIDE RECORDS SUMMARY | 2024-05-22 08:03 | XMS_ITS | Clinical Summary ---
Author Organization [facility] Address [address] [place] [address] Care Team Providers Care Shellfish Meat Separator Operator Name Role Phone Unavailable Primary Care Provider Unavailabl e Source Comments Patient records contain information from all sites at [facility]. For routine questions regarding patient records, call [phone] during business hours, M-F 8:00 AM - 5:00 PM Central Time. 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
--- OUTSIDE RECORDS SUMMARY | 2024-05-22 08:03 | XMS_ITS | Clinical Summary ---
Author Organization [facility] Address [address] [place] [id number] Care Team Providers Care Industrial Radiographer Name Role Phone Vlad Reyes MD Unavailable [phone] Pcp, No Primary Care Provider Unavailabl e [...] on file Legal Sex Male 5:27 AM PHYSICAL MEDICINE PHYSICIAN Gender Identity Not on file Sexual Orientation [...] Body Mass Index 23.85 03/18/2017 8:07 AM PHYSICAL MEDICINE PHYSICIAN Plan of Treatment Health Maintenance Due Date [...] booster 07/06/2023 07/05/2013, 04/02/2007 (Completed outside of [facility]) COVID-19 vaccine series ( season) 2023 Influenza Vaccine (Season Ended) 2024 11/05/2016, 10/18/2015, 11/30/2014, Additional history exists Tdap Completed 07/05/2013 Procedures Procedure Name Priority Date/Time Associated Diagnosis Comments LIPID PANEL W REFLEX MEASURED LDL Routine 01/05/2017 10:47 AM PHYSICAL MEDICINE PHYSICIAN Lipid screening from Last 3 Months or Most Recently Relevant to Health Maintenance Results * LIPID PANEL W REFLEX MEASURED LDL (01/05/2017 10:47 AM PHYSICAL MEDICINE PHYSICIAN) CHOLESTEROL,TOTAL 195 100 - 199 mg/dL 01/05/2017 5:15 PM PHYSICAL MEDICINE PHYSICIAN [facility] TRIGLYCERIDES 63 <150 mg/dL 01/05/2017 5:15 PM PHYSICAL MEDICINE PHYSICIAN [facility] HDL CHOLESTEROL 75 >40 mg/dL 7 5:15 PM PHYSICAL MEDICINE PHYSICIAN [facility] NON-HDL CHOLESTEROL 120 <145 mg/dl 01/05/2017 5:15 PM PHYSICAL MEDICINE PHYSICIAN [facility] CHOL/HDL RATIO 2.60 <4.50 01/05/2017 5:15 PM PHYSICAL MEDICINE PHYSICIAN [facility] LDL CHOLESTEROL 107 <=130 mg/dL 01/05/2017 5:15 PM PHYSICAL MEDICINE PHYSICIAN [facility] PROVIDER ORDERED STATUS RANDOM 01/05/2017 5:15 PM PHYSICAL MEDICINE PHYSICIAN [facility] Blood BLOOD SPECIMEN / Unknown Venipuncture / Unknown 01/05/2017 10:47 AM PHYSICAL MEDICINE PHYSICIAN 01/05/2017 10:48 AM PHYSICAL MEDICINE PHYSICIAN us Chelsi Ocampo DO CHEMISTRY Final Resu lt [facility] [address] [place] [address], from Last 3 Months or Most Recently Relevant to Health Maintenance Insurance [facility] [place] [phone] Care Teams Industrial Radiographer Relationship Specialty Start Date End Date Pcp, No . PCP - General 01/23/18 Vlad Reyes MD Orthopedics Surgery - Orthopedic 11/02/12
[2024-05-22] MEDS: predniSONE 20 MG TABLET 60 MG PO (08:20)
[2024-05-22] MEDS: AZITHROMYCIN 250 MG TABLET 500 MG PO (08:20)
[2024-05-22 08:22] LABS: HCO3 VBG 27 mmol/L (21-28); PCO2 VBG 50 mmHG (40-50); PO2 VBG < 30.1 mmHG (25-47); pH VBG 7.348 (7.32-7.43)
[2024-05-22 08:24] LABS: Basophils Absolute Auto 0.07 K/uL (0.00-0.30); Basophils Percent Auto 0.7 % (0.0-3.0); Eosinophils Absolute Auto 0.49 K/uL (0.00-0.50); Eosinophils Percent Auto 5.2 % (0.0-7.0); Hematocrit 43.9 % (37.0-53.0); Hemoglobin* 14.6 gm/dL (13.5-17.5); Immature Granulocytes Abs Auto 0.01 K/uL (0.00-0.30); Immature Granulocytes Pct Auto 0.1 %; Lymphocytes Percent Auto 16.7 % (20-44); Mean Corpuscular HGB Conc 33 gm/dL (32-36); Mean Corpuscular Hemoglobin 31 pg (26-34); Mean Corpuscular Volume 92 fL (80-100); Monocytes Percent Auto 5.9 % (0.0-11.0); Neutrophils Absolute Auto 6.77 K/uL (1.7-7.0); Neutrophils Percent Auto 71.4 % (42.0-72.0); Platelet Count* 216 K/uL (140-440); RDW Coefficient of Variation % 12.7 % (11.5-15.5); Red Blood Count 4.78 m/uL (4.30-5.90); White Blood Count* 9.48 K/uL (4.50-11.00)
[2024-05-22] MEDS: IPRAT-ALBUT 0.5-2.5 MG/3 ML NEB 1 NEB IH (08:25)
[2024-05-22 08:26] LABS: Slide Review Reflex No
[2024-05-22 08:37] LABS: Chloride* 102 mmol/L (96-114); Potassium* 4.6 mmol/L (3.6-5.1); Sodium* 136 mmol/L (135-149)
--- NOTE | 2024-05-22 08:39 | ED_ITS ---
HPI - General Adult General Chief complaint: Shortness of Breath/Dyspnea Stated complaint: shortness of breath Time Seen by Provider: 05/22/24 07:37 Source: patient and EMS History of Present Illness HPI narrative: 58-year-old male with a history of COPD presents by EMS for dyspnea. Patient with symptoms that just started this morning. No prodromal symptoms. Feels a little congested but mostly just a chest cough and significant tightness in his chest. When he gets the symptoms, he will typically use his DuoNeb with good results, unfortunately he realized this morning that he was out of the medication. He did not think to try his albuterol inhaler. He called 911 for further management. EMS reports that his O2 sats were in the high 70s, they administer DuoNeb and a sats quickly valdez to the high 80s. He felt much better upon arrival to the ED. no recent illness exposures, no pertinent travel. He does use a maintenance inhaler, no recent missed doses of this. He does continue to smoke cigarettes but has no history of lung cancer. Denies hemo ptysis, fever, GI changes or weakness. Past medical history notable for COPD, persistent tobacco use, hypertension, anxiety, rheumatological disease. Persistent tobacco user, alcohol use listed in chart. Medications reviewed, patient reports that these are accurate. No known drug allergies. ROS is notable for the respiratory symptoms only, otherwise denies times 12 systems. Related Data Home Medications ?Medication ?Instructions ?Recorded ?Confirmed aspirin 81 mg tablet,delayed 81 mg PO DAILY 01/17/22 08/17/23 release calcium 200 mg (as 2 tab PO DAILY 01/17/22 08/17/23 citrate)-vitamin D3 6.25 mcg (250 unit) tablet Previous Rx's ?Medication ?Instructions ?Recorded bupropion HCl 300 mg 24 hr tablet, 300 mg PO QAM #30 tabs 03/14/22 extended release (Wellbutrin XL) albuterol sulfate 90 mcg/actuation 2 puff inhalation Q4H PRN COPD 09/29/22 aerosol inhaler #8.5 grams folic acid 1 mg tablet 1 mg PO QDAY #90 tabs 04/23/23 methotrexate sodium 2.5 mg tablet 15 mg (6 x 2.5 mg) PO QWEEK #78 04/23/23 tabs montelukast 10 mg tablet 10 mg PO QDAY #90 tabs 04/23/23 (Singulair) naproxen 500 mg tablet 500 mg PO BID #60 tabs 04/23/23 metoprolol succinate 200 mg 200 mg PO QDAY #90 tabs 05/08/23 tablet,extended release 24 hr nicotine 7 mg/24 hr daily 1 patch transdermal Q24H #28 ea 08/17/23 transdermal patch prednisone 10 mg tablet 10 mg PO QDAY #90 tabs 08/17/23 hydrochlorothiazide 25 mg tablet 25 mg PO DAILY #90 tabs 08/27/23 prednisone 20 mg tablet 10 - 40 mg (0.5 - 2 x 20 mg) PO 03/07/24 QDAY #14 tabs budesonide 160 mcg-glycopyr 9 2 inh inhalation BID #10.7 grams 03/14/24 mcg-formot 4.8 mcg/actuation HFA inhaler (Breztri Aerosphere) ipratropium 0.5 mg-albuterol 3 mg 3 ml inhalation TID #180 mL 04/13/24 (2.5 mg base)/3 mL nebulization soln azithromycin 250 mg tablet See Rx Instructions PO .COMPLEX #6 05/22/24 tabs ipratropium 0.5 mg-albuterol 3 mg 3 ml inhalation Q6H PRN #180 mL 05/22/24 (2.5 mg base)/3 mL nebulization soln prednisone 20 mg tablet 20 mg PO BID 5 days #10 tabs 05/22/24 Allergies Allergy/AdvReac Type Severity Reaction Status Date / Time No Known Drug Allergies Allergy Verified 08/17/23 13:02 [facility] Medical History Closed fracture of left great toe ?S92.402A - Displaced unspecified fracture of left great toe, initial encounter for closed fracture (ICD-10) COVID-19 ?U07.1 - COVID-19 (ICD-10) Primary hypertension ?I10 - Essential (primary) hypertension (ICD-10) Psoriasis ?L40.9 - Psoriasis, unspecified (ICD-10) Scalp psoriasis ?L40.9 - Psoriasis, unspecified (ICD-10) Tobacco abuse ?Z72.0 - Tobacco use (ICD-10) Tension headache ?G44.209 - Tension-type headache, unspecified, not intractable (ICD-10) Paresthesia of both feet ?R20.2 - Paresthesia of skin (ICD-10) Generalized anxiety disorder (07/10/15) ?F41.1 - Generalized anxiety disorder (ICD-10) Fracture of rib ?S22.39XA - Fracture of one rib, unspecified side, initial encounter for closed fracture (ICD-10) Dental abscess ?K04.7 - Periapical abscess without sinus (ICD-10) Community acquired pneumonia ?J18.9 - Pneumonia, unspecified organism (ICD-10) Calculus of kidney ?N20.0 - Calculus of kidney (ICD-10) Alcohol abuse ?F10.10 - Alcohol abuse, uncomplicated (ICD-10) COPD (chronic obstructive pulmonary disease) ?J44.9 - Chronic obstructive pulmonary disease, unspecified (ICD-10) Surgical History History of arthroscopy of right knee (2016) ?Z98.890 - Other specified postprocedural states (ICD-10) Social History Narrative: Smoker, seeking disability, last worked 04/09/2023 What is your current living situation?: I presently have a place to live Problems where you live: no known problems In the past 12 months, utilities in danger of being shut off: no In past 12 months, lack of transportation kept you from medical appts, meetings, work, or getting things needed for daily living: no In the past 12 mos, have been you worried that your food would run out before you had money to buy more?: never true In the past 12 mos, the food you bought just didn't last and you didn't have m oney to buy more?: never true Smoking Status: Current every day smoker What tobacco products do you use: cigarettes Smoking packs per day: 0.5 Smoking cigarettes per day: 10.0 Years smoked: 20 Smoking pack-years: 10.00 Do you use any of these nicotine containing products: None Second hand tobacco smoke exposure: No How often do you have a drink containing alcohol: 2-4 times a month How many standard drinks containing alcohol do you have on a typical day: 5 or 6 How often do you have six or more drinks on one occasion: Weekly AUDIT-C Alcohol total score: 7 Non-prescribed substance use: denies use How often does anyone, including family, friends and others, physically hurt you : never How often does anyone, including family, friends and others, insult or talk down to you: never How often does anyone, including family, friends and others, threaten you with harm: never How often does anyone, including family, friends and others, scream or curse at you: never service: No Exam Const: Vital Signs, click to edit/add: Vital Signs - 24 hr 05/22/24 06:11 Temperature 98.1 F Pulse Rate [Right Pulse Oximeter] 77 Respiratory Rate 26 H Blood Pressure [Ri ght Upper Arm] 121/100 H Pulse Oximetry 92 Oxygen Delivery Me thod Room Air Documenting provider has reviewed patient's vital signs: yes Common normals: no apparent distress and alert General appearance: cooperative and comfortable HENMT: Common normals: normocephalic, moist oral mucous membranes and oropharynx normal Head and scalp: normocephalic Other: Mild clear mucus rhinorrhea, otherwise normal HEENT exam Eye: Common normals: conjunctivae normal General eye: normal appearance of both eyes Conjunctiva: conjunctiva(e) normal Neck & C-Spine: Common normals: full ROM and no lymphadenopathy General: normal visual inspection Resp: Other: Normal respiratory effort but prolongation of expiration about a 4-1 ratio with significant expiratory wheeze. No crackles. Overall air movement though is a little decreased. Cardio: Common normals: regular rate, regular rhythm, S1 normal heart sound, S2 normal heart sound and no murmurs Rate: regular rate Rhythm: regular rhythm Heart sounds: S1 normal and S2 normal GI: Common normals: Normal to inspection, nondistended, normoactive bowel sounds present, soft to palpation, non-tender, no hepatosplenomegaly and no masses Palpation: soft and no hepatosplenomegaly Extremity: Common normals: normal to inspection and normal capillary refill Neuro: Sensorium/orientation: alert Speech: speech normal Gait (neuro): normal gait Psych: Common normals: speech normal Attitude: engaged Activity/motor behavior: appropriate eye contact Speech: normal speech Mood and affect: euthymic mood Skin: Common normals: no rashes or lesions noted General skin exam: no rashes or lesions noted Course Course ED Course: 58-year-old male with history of COPD presenting with hypoxia and marked improvement after administration of DuoNeb from EMS. Suspicious for COPD exacerbation. No obvious pneumonia on exam but he is very prolonged and has significant wheeze. Will obtain chest x-ray, CBC, CRP, viral swabs, basic metabolic panel. Will give 60 of oral prednisone, 500 of azithromycin and another DuoNeb. Re-evaluate. Reevaluation(s) Time of Reevaluation #1: 08:55 Reevaluation #1: Oxygen levels improving after DuoNeb, steroids and initial dose of azithromycin. Patient feeling better. X-ray does not show any focal consolidation, results reviewed. Labs are reassuring as well. Suspect COPD exacerbation. Patient counseled on 5 days of azithromycin and prednisone. He tells me that he has all needed supplies except for the DuoNeb vials. Large supply of these will be prescribed for him. Counseled on medications, alarm symptoms that would warrant repeat ED evaluation. He verbalizes understanding and agreement, no further questions. Vital Signs Vital signs: Initial Vital Signs Temperature 98.1 F 05/22/24 06:11 Temperature Source Temporal Artery Scan 05/22/24 06:11 Pulse Rate 77 05/22/24 06:11 Pulse Rhythm Regular 05/22/24 06:11 Respiratory Rate 26 H 05/22/24 06:11 Blood Pressure 121/100 H 05/22/24 06:11 Blood Pressure Mean 107 H 05/22/24 06:11 Blood Pressure Position Sitting 05/22/24 06:11 Pulse Oximetry 92 05/22/24 06:11 Oxygen Delivery Method Room Air 05/22/24 06:11 Vital Signs Temperature 98.1 F 05/22/24 06:11 Pulse Rate 77 05/22/24 06:11 Respiratory Rate 26 H 05/22/24 06:11 Blood Pressure 121/100 H 05/22/24 06:11 Pulse Oximetry 92 05/22/24 06:11 Oxygen Delivery Method Room Air 05/22/24 06:11 Temperature 98.1 F 05/22/24 06:11 Pulse Rate 77 05/22/24 06:11 Respiratory Rate 26 H 05/22/24 06:11 Blood Pressure 121/100 H 05/22/24 06:11 Pulse Oximetry 92 05/22/24 06:11 Oxygen Delivery Method Room Air 05/22/24 06:11 Medications Administered Medications: Discontinued Medications Generic Name Dose Route Start Last Admin Trade Name Liliane PRN Reason Stop Dose Admin Albuterol/Ipratropium 1 neb 05/22/24 07:56 05/22/24 08:25 Iprat-Albut 0.5-2.5 Mg/3 Ml Neb 05/22/24 07:57 1 neb ONCE ONE Administration Azithromycin 500 mg 05/22/24 07:56 05/22/24 08:20 Azithromycin 250 Mg Tablet PO 05/22/24 07:57 500 mg ONCE ONE Administration Prednisone 60 mg 05/22/24 07:56 05/22/24 08:20 Prednisone 20 Mg Tablet PO 05/22/24 07:57 60 mg ONCE ONE Administration Medical Decision Making Lab Data Lab results reviewed: Yes I reviewed the patient's lab results Lab results narrative: No significant leukocytosis. Blood gas is reassuring, electrolytes and renal function reassuring. Normal CRP. Viral swabs normal as expected. Labs: Lab Results 05/22/24 05/22/24 Range/Units 06:15 08:17 WBC 9.48 (4.50-11.00) K/uL RBC 4.78 (4.30-5.90) m/uL Hgb 14.6 (13.5-17.5) gm/dL Hct 43.9 (37.0-53.0) % MCV 92 (80-100) fL MCH 31 (26-34) pg MCHC 33 (32-36) gm/dL RDW Coeff of Lidia 12.7 (11.5-15.5) % Plt Count 216 (140-440) K/uL Neut % (Auto) 71.4 (42.0-72.0) % Lymph % (Auto) 16.7 L (20-44) % [place] % (Auto) 5.9 (0.0-11.0) % Eos % (Auto) 5.2 (0.0-7.0) % Baso % (Auto) 0.7 (0.0-3.0) % Neut # (Auto) 6.77 (1.7-7.0) K/uL Lymph # (Auto) 1.60 (0.90-2.90) K/uL [place] # (Auto) 0.60 (0.00-0.90) K/UL Eos # (Auto) 0.49 (0.00-0.50) K/uL Baso # (Auto) 0.07 (0.00-0.30) K/uL Abs Immat Gran (auto) 0.01 (0.00-0.30) K/uL Imm/Tot Granulo (auto) 0.1 % VBG pH 7.348 (7.32-7.43) VBG pCO2 50 (40-50) mmHG VBG pO2 < 30.1 (25-47) mmHG VBG HCO3 27 (21-28) mmol/L Sodium 136 (135-149) mmol/L Potassium 4.6 (3.6-5.1) mmol/L Chloride 102 (96-114) mmol/L Carbon Dioxide 27 (20-32) mmol/L Anion Gap 7 (7-15) mEq/L BUN 20 (7-30) mg/dL Creatinine 1.1 (0.5-1.5) mg/dL Estimated Creat Clear 81.32 Estimated GFR 78 ml/min Glucose 96 (60-115) mg/dL Calcium 9.1 (8.4-10.6) mg/dL C-Reactive Protein < 0.5 L (0.5-1.0) mg/dL SARS-CoV-2 (PCR) Negative SARS-CoV-2 (Negative) Influenza Type A (PCR) Negative PCR FLU A (Negative) Influenza Type B (PCR) Negative PCR FLU B (Negative) RSV (PCR) Negative PCR RSV (Negative) Imaging Data Chest x-ray: Attestation: I have reviewed the pertinent imaging results. My impression: Hyperinflated but otherwise looks great. No consolidation, pneumothorax, cardiomegaly or effusions Radiologist's impression: IMPRESSION: No acute process. Dictated by Kaylen Montoya MD @ 05/22/2024 8:34:11 AM Discharge Plan Discharge Clinical Impression: COPD with acute exacerbation Patient Disposition: Home w/ Parent or Adult Condition: Improved Instructions: COPD (Chronic Obstructive Pulmonary Disease) (DC) Additional Instructions: As we discussed, it looks like a flare-up of your COPD. This often happens from viral infections. Your chest x-ray does not show any clear pneumonia. Blood work is also quite reassuring. I am glad that the nebulizer treatments were helpful. I have sent an additional supply to your pharmacy, please pick these up right away. As far as other treatments, you will be given prednisone which is a steroid. Your given a morning dose here in the emergency room. Would like for you to take the steroid twice a day but you do not want to take it within 3 hours of bedtime as it may worsen insomnia. I would like you to take another dose at approximately 5-6:00 p.m. tonight. Continue taking the prednisone twice daily for 5 days. Will also take azithromycin, a common antibiotic. Your given a dose here today. He will continue taking that every morning for 5 days. He will take 2 pills tomorrow and then 1 pill daily until gone. The medicines will stay in her system for a couple of extra days so your symptoms may not be completely healed by the time the medications run out. Continue using the nebulizer treatments at least 3 times daily but up to 4 times daily if needed to help treat the shortness of breath. Return to the emergency department if things become severe or if you have very high fever, severe weakness, coughing up blood or other worrisome symptoms. Activity Level: Activity as Tolerated Discharge Diet: Regular Prescriptions: New ipratropium-albuterol 0.5 mg-3 mg(2.5 mg base)/3 mL solution for nebulization 3 ml inhalation Q6H PRNQty: 180 1RF prednisone 20 mg tablet 20 mg PO BID 5 Days Qty: 10 0RF azithromycin 250 mg tablet See Rx Instructions .ROUTE .COMPLEX Qty: 6 0RF Rx Instructions: For 250 mg dose pack: take 500 mg today (day 1), then 250 mg for 4 days (days 2-5) No Action folic acid 1 mg tablet 1 mg PO QDAY Qty: 90 3RF methotrexate sodium 2.5 mg tablet 15 mg PO QWEEK Qty: 78 0RF montelukast [Singulair] 10 mg tablet 10 mg PO QDAY Qty: 90 3RF naproxen 500 mg tablet 500 mg PO BID Qty: 60 5RF calcium citrate-vitamin D3 200 mg-6.25 mcg (250 unit) tablet 2 tab PO DAILY aspirin 81 mg tablet,delayed release (DR/EC) 81 mg PO DAILY bupropion HCl [Wellbutrin XL] 300 mg tablet extended release 24 hr 300 mg PO QAM Qty: 30 5RF prednisone 10 mg tablet 10 mg PO QDAY Qty: 90 0RF nicotine 7 mg/24 hr patch 24 hour 1 patch transdermal Q24H Qty: 28 5RF albuterol sulfate 90 mcg/actuation HFA aerosol inhaler 2 puff inhalation Q4H PRN (Reason: COPD) Qty: 8.5 0RF metoprolol succinate 200 mg tablet extended release 24 hr 200 mg PO QDAY Qty: 90 3RF hydrochlorothiazide 25 mg tablet 25 mg PO DAILY Qty: 90 1RF prednisone 20 mg tablet 10 - 40 mg PO QDAY Qty: 14 0RF Rx Instructions: 2 QD x 4 days, 1 QD x 4 days, 1/2 QD x 4 days Breztri Aerosphere 160-9-4.8 mcg/actuation HFA aerosol inhaler 2 inh inhalation BID Qty: 10.7 5RF ipratropium-albuterol 0.5 mg-3 mg(2.5 mg base)/3 mL solution for nebulization 3 ml inhalation TID Qty: 180 0RF Follow Up/Referrals: [place] MD [Primary Care Provider] - Stand Alone Forms: Basic-Fit Info Instructions
[2024-05-22 08:40] LABS: Anion Gap 7 mEq/L (7-15); Blood Urea Nitrogen* 20 mg/dL (7-30); Calcium* 9.1 mg/dL (8.4-10.6); Carbon Dioxide* 27 mmol/L (20-32); Creatinine* 1.1 mg/dL (0.5-1.5); Est. Creatinine Clearance* 81.32; Estimated Glomerular Filt Rate 78 ml/min; Glucose* 96 mg/dL (60-115)
[2024-05-22 08:48] LABS: C Reactive Protein* < 0.5 mg/dL (0.5-1.0)
[2024-05-22 08:54] LABS: PCR FLU A Negative PCR FLU A (Negative); PCR FLU B Negative PCR FLU B (Negative); PCR RSV Negative PCR RSV (Negative); SARS PCR* Negative SARS-CoV-2 (Negative)
== END 2024-05-22 09:04 | disposition home or self-care (01) ==
PROVIDERS: Emergency Provider Family Medicine; PCP Family Medicine
DX: J44.1 Chronic obstructive pulmonary disease with (acute) exacerbation (principal)
CPT/HCPCS: 36415; 71046; 80048; 82803; 85025; 86140; 87631; 94761; 99284; A9270; J7512

== ENCOUNTER 2024-05-23 03:36 | Outpatient (CLI) | payer OTHER, SELFPAY | END 2024-05-23 03:37 | disposition home or self-care (01) | LOC: AMB 05-24 10:27 | PROVIDERS: PCP Family Medicine; Visit Provider Family Medicine | DX: R06.09 Other forms of dyspnea (principal) | CPT/HCPCS: A0425; A0433 ==

== ENCOUNTER 2024-05-23 03:58 | Emergency (ER) | payer OTHER, SELFPAY ==
--- OUTSIDE RECORDS SUMMARY | 2024-05-23 04:00 | XMS_ITS | Clinical Summary ---
Author Organization [facility] Address [address] [place] [id number] Care Team Providers Care Cyber Security Instructor Name Role Phone Vlad Reyes MD Unavailable [phone] Pcp, No Primary Care Provider Unavailabl e [...] on file Legal Sex Male 5:27 AM INBOUND CALL CENTER AGENT Gender Identity Not on file Sexual Orientation [...] Body Mass Index 23.85 03/18/2017 8:07 AM INBOUND CALL CENTER AGENT Plan of Treatment Health Maintenance Due Date [...] booster 07/06/2023 07/05/2013, 04/02/2007 (Completed outside of [facility]) COVID-19 vaccine series ( season) 2023 Influenza Vaccine (Season Ended) 2024 11/05/2016, 10/18/2015, 11/30/2014, Additional history exists Tdap Completed 07/05/2013 Procedures Procedure Name Priority Date/Time Associated Diagnosis Comments LIPID PANEL W REFLEX MEASURED LDL Routine 01/05/2017 10:47 AM INBOUND CALL CENTER AGENT Lipid screening from Last 3 Months or Most Recently Relevant to Health Maintenance Results * LIPID PANEL W REFLEX MEASURED LDL (01/05/2017 10:47 AM INBOUND CALL CENTER AGENT) CHOLESTEROL,TOTAL 195 100 - 199 mg/dL 01/05/2017 5:15 PM INBOUND CALL CENTER AGENT [facility] TRIGLYCERIDES 63 <150 mg/dL 01/05/2017 5:15 PM INBOUND CALL CENTER AGENT [facility] HDL CHOLESTEROL 75 >40 mg/dL 7 5:15 PM INBOUND CALL CENTER AGENT [facility] NON-HDL CHOLESTEROL 120 <145 mg/dl 01/05/2017 5:15 PM INBOUND CALL CENTER AGENT [facility] CHOL/HDL RATIO 2.60 <4.50 01/05/2017 5:15 PM INBOUND CALL CENTER AGENT [facility] LDL CHOLESTEROL 107 <=130 mg/dL 01/05/2017 5:15 PM INBOUND CALL CENTER AGENT [facility] PROVIDER ORDERED STATUS RANDOM 01/05/2017 5:15 PM INBOUND CALL CENTER AGENT [facility] Blood BLOOD SPECIMEN / Unknown Venipuncture / Unknown 01/05/2017 10:47 AM INBOUND CALL CENTER AGENT 01/05/2017 10:48 AM INBOUND CALL CENTER AGENT us Chelsi Ocampo DO CHEMISTRY Final Resu lt [facility] [address] [place] [address], from Last 3 Months or Most Recently Relevant to Health Maintenance Insurance [facility] [employer] Care Teams Cyber Security Instructor Relationship Specialty Start Date End Date Pcp, No . PCP - General 01/23/18 Vlad Reyes MD Orthopedics Surgery - Orthopedic 11/02/12
--- OUTSIDE RECORDS SUMMARY | 2024-05-23 04:00 | XMS_ITS | Clinical Summary ---
Author Organization [facility] Address [address] [place] [address] Care Team Providers Care Coding Manager Name Role Phone Unavailable Primary Care Provider Unavailabl e Source Comments Patient records contain information from all sites at [facility]. For routine questions regarding patient records, call [phone] during business hours, M-F 8:00 AM - 5:00 PM Central Time. 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
[2024-05-23 04:01] VITALS: BP 133/97; PULSE 75; RESP 22; TEMP 35.9; O2SAT 88; BMI 22.3
[2024-05-23 04:04] VITALS: O2SAT 90
[2024-05-23] MEDS: predniSONE 20 MG TABLET 40 MG PO (04:10)
[2024-05-23] MEDS: IPRAT-ALBUT 0.5-2.5 MG/3 ML NEB 1 NEB IH (04:10)
--- NOTE | 2024-05-23 04:19 | ED_ITS ---
HPI - General Adult General Chief complaint: Shortness of Breath/Dyspnea Stated complaint: COPD, seen yesterday Time Seen by Provider: 05/23/24 04:06 Source: patient and EMS Mode of arrival: EMS History of Present Illness HPI narrative: 58-year-old male presents to the emergency department for the 2nd time in 20 hours. He has a notable history of persistent smoking and underlying COPD. He was evaluated 20 hours ago, perfectly normal chest x-ray, normal cardiac workup, normal labs and viral swabs. He was started on prednisone, given neb treatments and azithromycin and reported that he felt much better. He was given adequate prescriptions for his medications which unfortunately he did not bead picker. He reports that he awoke in the middle of the night feeling like he urgently needed a neb treatment and called 911. Did not try any other interventions. Does have home albuterol inhalers he assures me. He did not take his evening steroids before bed as he had not yet picked those up from the pharmacy either. No fever. No other clinical changes. Had been feeling well after leaving the emergency department. No vomiting, eating well. Was given DuoNeb and albuterol neb on route by EMS. Assures me that he does not think that we need to repeat the labs or chest x- ray, by the time I see him, he is feeling markedly better after administration of the nebs. O2 sats are 92% at the time of my exam, on room air. No chest pa in or palpitations. Medical history notable for COPD, persistent tobacco use, anxiety disorder, hypertension, rheumatological disease. No pertinent travel. ROS notable for the respiratory symptoms only, otherwise denies times 12 systems. Related Data Home Medications ?Medication ?Instructions ?Recorded ?Confirmed aspirin 81 mg tablet,delayed 81 mg PO DAILY 01/17/22 08/17/23 release calcium 200 mg (as 2 tab PO DAILY 01/17/22 08/17/23 citrate)-vitamin D3 6.25 mcg (250 unit) tablet Previous Rx's ?Medication ?Instructions ?Recorded bupropion HCl 300 mg 24 hr tablet, 300 mg PO QAM #30 tabs 03/14/22 extended release (Wellbutrin XL) albuterol sulfate 90 mcg/actuation 2 puff inhalation Q4H PRN COPD 09/29/22 aerosol inhaler #8.5 grams folic acid 1 mg tablet 1 mg PO QDAY #90 tabs 04/23/23 methotrexate sodium 2.5 mg tablet 15 mg (6 x 2.5 mg) PO QWEEK #78 04/23/23 tabs montelukast 10 mg tablet 10 mg PO QDAY #90 tabs 04/23/23 (Singulair) naproxen 500 mg tablet 500 mg PO BID #60 tabs 04/23/23 metoprolol succinate 200 mg 200 mg PO QDAY #90 tabs 05/08/23 tablet,extended release 24 hr nicotine 7 mg/24 hr daily 1 patch transdermal Q24H #28 ea 08/17/23 transdermal patch prednisone 10 mg tablet 10 mg PO QDAY #90 tabs 08/17/23 hydrochlorothiazide 25 mg tablet 25 mg PO DAILY #90 tabs 08/27/23 prednisone 20 mg tablet 10 - 40 mg (0.5 - 2 x 20 mg) PO 03/07/24 QDAY #14 tabs budesonide 160 mcg-glycopyr 9 2 inh inhalation BID #10.7 grams 03/14/24 mcg-formot 4.8 mcg/actuation HFA inhaler (Breztri Aerosphere) ipratropium 0.5 mg-albuterol 3 mg 3 ml inhalation TID #180 mL 04/13/24 (2.5 mg base)/3 mL nebulization soln azithromycin 250 mg tablet See Rx Instructions PO .COMPLEX #6 05/22/24 tabs ipratropium 0.5 mg-albuterol 3 mg 3 ml inhalation Q6H PRN #180 mL 05/22/24 (2.5 mg base)/3 mL nebulization soln prednisone 20 mg tablet 20 mg PO BID 5 days #10 tabs 05/22/24 albuterol sulfate 2.5 mg/0.5 mL 2.5 mg (0.5 mL) inhalation Q4H PRN 05/23/24 solution for nebulization shortness of breath or wheezing #30 ea inhalational spacing device #1 ea 05/23/24 (BreatheRite MDI Spacer) Allergies Allergy/AdvReac Type Severity Reaction Status Date / Time No Known Drug Allergies Allergy Verified 08/17/23 13:02 [facility] Medical History Closed fracture of left great toe ?S92.402A - Displaced unspecified fracture of left great toe, initial encounter for closed fracture (ICD-10) COVID-19 ?U07.1 - COVID-19 (ICD-10) Primary hypertension ?I10 - Essential (primary) hypertension (ICD-10) Psoriasis ?L40.9 - Psoriasis, unspecified (ICD-10) Scalp psoriasis ?L40.9 - Psoriasis, unspecified (ICD-10) Tobacco abuse ?Z72.0 - Tobacco use (ICD-10) Tension headache ?G44.209 - Tension-type headache, unspecified, not intractable (ICD-10) Paresthesia of both feet ?R20.2 - Paresthesia of skin (ICD-10) Generalized anxiety disorder (07/10/15) ?F41.1 - Generalized anxiety disorder (ICD-10) Fracture of rib ?S22.39XA - Fracture of one rib, unspecified side, initial encounter for closed fracture (ICD-10) Dental abscess ?K04.7 - Periapical abscess without sinus (ICD-10) Community acquired pneumonia ?J18.9 - Pneumonia, unspecified organism (ICD-10) Calculus of kidney ?N20.0 - Calculus of kidney (ICD-10) Alcohol abuse ?F10.10 - Alcohol abuse, uncomplicated (ICD-10) COPD (chronic obstructive pulmonary disease) ?J44.9 - Chronic obstructive pulmonary disease, unspecified (ICD-10) Surgical History History of arthroscopy of right knee (2016) ?Z98.890 - Other specified postprocedural states (ICD-10) Social History Narrative: Smoker, seeking disability, last worked 04/09/2023 What is your current living situation?: I presently have a place to live Problems where you live: no known problems In the past 12 months, utilities in danger of being shut off: no In past 12 months, lack of transportation kept you from medical appts, meetings, work, or getting things needed for daily living: no In the past 12 mos, have been you worried that your food would run out before you had money to buy more?: never true In the past 12 mos, the food you bought just didn't last and you didn't have money to buy more?: never true Smoking Status: Current every day smoker What tobacco products do you use: cigarettes Smoking packs per day: 0.5 Smoking cigarettes per day: 10.0 Years smoked: 20 Smoking pack-years: 10.00 Do you use any of these nicotine containing products: None Second hand tobacco smoke exposure: No How often do you have a drink containing alcohol: 2-4 times a month How many standard drinks containing alcohol do you have on a typical day: 5 or 6 How often do you have six or more drinks on one occasion: Weekly AUDIT-C Alcohol total score: 7 Non-prescribed substance use: denies use How often does anyone, including family, friends and others, physically hurt you : never How often does anyone, including family, friends and others, insult or talk down to you: never How often does anyone, including family, friends and others, threaten you with harm: never How often does anyone, including family, friends and others, scream or curse at you: never service: No Exam Const: Vital Signs, click to edit/add: Vital Signs - 24 hr 05/23/24 04:01 05/23/24 04:04 05/23/24 04:29 Temperature 96.7 F L Pulse Rate [Pulse Oximeter] 75 63 Respiratory Rate 22 20 Blood Pressure [Ri ght Upper Arm] 133/97 H Pulse Oximetry 88 90 90 Oxygen Delivery Me thod Room Air Nasal Cannula Room Air Oxygen Flow Rate 1.5 Documenting provider has reviewed patient's vital signs: yes Common normals: no apparent distress General appearance: comfortable Other: Friendly and cooperative, mentation stable from yesterday. HENMT: Common normals: normocephalic, moist oral mucous membranes and oropharynx normal Head and scalp: normocephalic Mouth: oral and palatal mucosa normal Throat: posterior oropharynx normal Eye: Common normals: conjunctivae normal General eye: normal appearance of both eyes Conjunctiva: conjunctiva(e) normal Neck & C-Spine: Common normals: full ROM and no lymphadenopathy Resp: Common normals: normal respiratory effort and no use of accessory muscles Other: Prolongation of expiration 3-1 which is improved from 4-1 yesterday. He has expiratory wheeze but is moving air better than upon initial exam yesterday. Similar to discharge. Note that this exam is after neb treatments. Cardio: Common normals: regular rate, regular rhythm, S1 normal heart sound, S2 normal heart sound and no murmurs Rate: regular rate Rhythm: regular rhythm Heart sounds: S1 normal and S2 normal GI: Common normals: Normal to inspection, nondistended, normoactive bowel sounds present, soft to palpation, no hepatosplenomegaly and no masses Palpation: soft and no hepatosplenomegaly Extremity: Common normals: normal capillary refill Psych: Appearance: grossly normal Attitude: engaged Mood and affect: euthymic mood Skin: Common normals: no rashes or lesions noted General skin exam: no rashes or lesions noted Course Course ED Course: 58-year-old male with recent diagnosis of COPD exacerbation. Normal chest x-ray and labs within the last 24 hours. Patient was unable to bead picker medications and he believes this is the etiology for his rebound of symptoms and I am inclined to agree. He is already feeling a lot better after the neb treatment. Recommend that we give 40 mg of prednisone, his morning dose of azithromycin as the pharmacies of course will not be open for another 6 hours. Give 1 more neb treatment ends re-evaluate. If his clinical condition does not improve markedly, would recommend repeat chest x-ray and labs but if his condition does improve significantly, consider continuation of plan previously outlined with watchful waiting. Reevaluation(s) Time of Reevaluation #1: 05:13 Reevaluation #1: Patient monitored for an hour and oxygen levels persistently 91-94% which is his baseline. He is feeling much better after the breathing treatments and prednisone. We spent some time discussing what his barriers were to picking up his medications and we seem to have solved those. He was able to find some good Rx coupons to lower his prescription cost and reports that it will be around 50 dollars to pick everything up today which will not be a problem. I discuss his albuterol inhaler and I do think that he would benefit significantly from having a spacer and I have recommended 1 of those and provided a prescription. We also discussed that sometimes there is some supply chain issues with DuoNeb vials, I have also prescribed some albuterol neb vials for him to use. He has also found that nebulizer solution is dramatically cheaper per dose than an albuterol inhaler, and appreciates having this as an option as well. He confirms that he has all the nebulizer supplies that he would need. Counseled patient that it really is imperative that he quit smoking. His lung function overall is declaring that he does not have much for reserve. He is going to start having more frequent flares and also more dramatic flares if he continues to smoke. Smoking cessation would benefit him tremendously. Patient counseled on alarm symptoms that would warrant return to the emergency department. He will bead picker his prednisone, azithromycin and DuoNebs as planned. I would also recommend that he bead picker the albuterol spacer and albuterol vials as planned. He would not like to repeat labs or imaging and I concur based on his clinical response. Written instructions provided. Vital Signs Vital signs: Initial Vital Signs Temperature 96.7 F L 05/23/24 04:01 Temperature Source Temporal Artery Scan 05/23/24 04:01 Pulse Rate 75 05/23/24 04:01 Respiratory Rate 22 05/23/24 04:01 Blood Pressure 133/97 H 05/23/24 04:01 Blood Pressure Mean 109 H 05/23/24 04:01 Blood Pressure Position Sitting 05/23/24 04:01 Pulse Oximetry 88 05/23/24 04:01 Oxygen Delivery Method Room Air 05/23/24 04:01 Vital Signs Temperature 96.7 F L 05/23/24 04:01 Pulse Rate 75 05/23/24 04:01 Respiratory Rate 22 05/23/24 04:01 Blood Pressure 133/97 H 05/23/24 04:01 Pulse Oximetry 88 05/23/24 04:01 Oxygen Delivery Method Room Air 05/23/24 04:01 Temperature 96.7 F L 05/23/24 04:01 Pulse Rate 63 05/23/24 04:29 Respiratory Rate 20 05/23/24 04:29 Blood Pressure 133/97 H 05/23/24 04:01 Pulse Oximetry 90 05/23/24 04:29 Oxygen Delivery Method Room Air 05/23/24 04:29 Oxygen Flow Rate 1.5 05/23/24 04:04 Medications Administered Medications: Discontinued Medications Generic Name Dose Route Start Last Admin Trade Name Freq PRN Reason Stop Dose Admin Albuterol/Ipratropium 1 neb 05/23/24 04:05 05/23/24 04:10 Iprat-Albut 0.5-2.5 Mg/3 Ml Neb IH 05/23/24 04:06 1 neb ONCE ONE Administration Azithromycin 500 mg 05/23/24 04:18 05/23/24 04:22 Azithromycin 250 Mg Tablet PO 05/23/24 04:19 500 mg ONCE ONE Administration Prednisone 40 mg 05/23/24 04:05 05/23/24 04:10 Prednisone 20 Mg Tablet PO 05/23/24 04:06 40 mg ONCE ONE Administration Discharge Plan Discharge Clinical Impression: COPD (chronic obstructive pulmonary disease) Patient Disposition: Home w/ Parent or Adult Condition: Improved Instructions: COPD (Chronic Obstructive Pulmonary Disease) (DC) Additional Instructions: I am glad that your lungs have responded so well to the breathing treatments and prednisone again. I am sorry that you had difficulty picking up your medications but I am thankful that you have a plan to get those today. You have been given your morning medications for Thursday. You will still need the nebulizer treatments every 6 hours for at least the next few days and you will need another dose of prednisone this afternoon. Your next dose of antibiotics will be Thursday. As we discussed, your lungs really are only functioning about half to 1/3 that of a normal person now. If you are able to quit smoking, you are still at a point where you could regain some function in your lungs. If you continue smoking, your flares are going to get more dramatic like this and I do perceive a time when you will need home oxygen within the next few years. Continue using your maintenance inhalers. As we discussed, your albuterol inhaler may be more effective for you if you use a spacer, I will send a prescription for this to the pharmacy. Sometimes there are also supply issues for those DuoNeb so I am going to send a prescription for some albuterol nebulizer vials as well. Will tell the pharmacy just to hold onto those and not fill them unless you request. Often, neb solutions are much cheaper than inhalers and I want you to have access to medications as many ways as possible. Please return to the emergency department or call 911 if things worsen significantly. Activity Level: Activity as Tolerated Discharge Diet: Regular Prescriptions: New albuterol sulfate 2.5 mg/0.5 mL solution for nebulization 2.5 mg inhalation Q4H PRN (Reason: shortness of breath or wheezing) Qty: 30 12RF (DME) BreatheRite MDI Spacer Spacer See Rx Instructions .Route Qty: 1 1RF Rx Instructions: As directed No Action folic acid 1 mg tablet 1 mg PO QDAY Qty: 90 3RF methotrexate sodium 2.5 mg tablet 15 mg PO QWEEK Qty: 78 0RF montelukast [Singulair] 10 mg tablet 10 mg PO QDAY Qty: 90 3RF naproxen 500 mg tablet 500 mg PO BID Qty: 60 5RF calcium citrate-vitamin D3 200 mg-6.25 mcg (250 unit) tablet 2 tab PO DAILY aspirin 81 mg tablet,delayed release (DR/EC) 81 mg PO DAILY bupropion HCl [Wellbutrin XL] 300 mg tablet extended release 24 hr 300 mg PO QAM Qty: 30 5RF prednisone 10 mg tablet 10 mg PO QDAY Qty: 90 0RF nicotine 7 mg/24 hr patch 24 hour 1 patch transdermal Q24H Qty: 28 5RF ipratropium-albuterol 0.5 mg-3 mg(2.5 mg base)/3 mL solution for nebulization 3 ml inhalation Q6H PRNQty: 180 1RF prednisone 20 mg tablet 20 mg PO BID 5 Days Qty: 10 0RF azithromycin 250 mg tablet See Rx Instructions .ROUTE .COMPLEX Qty: 6 0RF Rx Instructions: For 250 mg dose pack: take 500 mg today (day 1), then 250 mg for 4 days (days 2-5) albuterol sulfate 90 mcg/actuation HFA aerosol inhaler 2 puff inhalation Q4H PRN (Reason: COPD) Qty: 8.5 0RF metoprolol succinate 200 mg tablet extended release 24 hr 200 mg PO QDAY Qty: 90 3RF hydrochlorothiazide 25 mg tablet 25 mg PO DAILY Qty: 90 1RF prednisone 20 mg tablet 10 - 40 mg PO QDAY Qty: 14 0RF Rx Instructions: 2 QD x 4 days, 1 QD x 4 days, 1/2 QD x 4 days Breztri Aerosphere 160-9-4.8 mcg/actuation HFA aerosol inhaler 2 inh inhalation BID Qty: 10.7 5RF ipratropium-albuterol 0.5 mg-3 mg(2.5 mg base)/3 mL solution for nebulization 3 ml inhalation TID Qty: 180 0RF Follow Up/Referrals: [place] F[place] MD [Primary Care Provider] - Stand Alone Forms: [facility] Info Instructions
[2024-05-23] MEDS: AZITHROMYCIN 250 MG TABLET 500 MG PO (04:22)
--- OUTSIDE RECORDS SUMMARY | 2024-05-23 04:28 | XMS_ITS | Clinical Summary ---
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 Gender Identity Not on file Sexual Orientation [...] Body Mass Index 23.85 03/18/2017 8:07 AM VENEER CLIPPER Plan of Treatment Health Maintenance Due Date [...] booster 07/06/2023 07/05/2013, 04/02/2007 (Completed outside of [facility]) COVID-19 vaccine series ( season) 2023 Influenza Vaccine (Season Ended) 2024 11/05/2016, 10/18/2015, 11/30/2014, Additional history exists Tdap Completed 07/05/2013 Procedures Procedure Name Priority Date/Time Associated Diagnosis Comments LIPID PANEL W REFLEX MEASURED LDL Routine 01/05/2017 10:47 AM VENEER CLIPPER Lipid screening from Last 3 Months or Most Recently Relevant to Health Maintenance Results * LIPID PANEL W REFLEX MEASURED LDL (01/05/2017 10:47 AM VENEER CLIPPER) CHOLESTEROL,TOTAL 195 100 - 199 mg/dL 01/05/2017 5:15 PM VENEER CLIPPER [facility] TRIGLYCERIDES 63 <150 mg/dL 01/05/2017 5:15 PM VENEER CLIPPER [facility] HDL CHOLESTEROL 75 >40 mg/dL 7 5:15 PM VENEER CLIPPER [facility] NON-HDL CHOLESTEROL 120 <145 mg/dl 01/05/2017 5:15 PM VENEER CLIPPER [facility] CHOL/HDL RATIO 2.60 <4.50 01/05/2017 5:15 PM VENEER CLIPPER [facility] LDL CHOLESTEROL 107 <=130 mg/dL 01/05/2017 5:15 PM VENEER CLIPPER [facility] PROVIDER ORDERED STATUS RANDOM 01/05/2017 5:15 PM VENEER CLIPPER [facility] Blood BLOOD SPECIMEN / Unknown Venipuncture / Unknown 01/05/2017 10:47 AM VENEER CLIPPER 01/05/2017 10:48 AM VENEER CLIPPER us Chelsi Ocampo DO CHEMISTRY Final Resu lt [facility] [address] [place] [address], from Last 3 Months or Most Recently Relevant to Health Maintenance Insurance [facility] [employer] Care Teams Bulk Filler Relationship Specialty Start Date End Date Pcp, No . PCP - General 01/23/18 Vlad Reyes MD Orthopedics Surgery - Orthopedic 11/02/12
--- OUTSIDE RECORDS SUMMARY | 2024-05-23 04:28 | XMS_ITS | Clinical Summary ---
Author Organization [facility] Address [address] [place] [address] Care Team Providers Care Brick Stacker Name Role Phone Unavailable Primary Care Provider Unavailabl e Source Comments Patient records contain information from all sites at [facility]. For routine questions regarding patient records, call [phone] during business hours, M-F 8:00 AM - 5:00 PM Central Time. Record requests for emergency care only can be directed to [phone] at any time.[facility] Allergies No known active allergies Medications [...] on file Legal Sex Male 9:23 AM COMPLETIONS ENGINEER Gender Identity Not on file Sexual Orientation [...]
[2024-05-23 04:29] VITALS: PULSE 63; RESP 20; O2SAT 90
== END 2024-05-23 05:45 | disposition home or self-care (01) ==
PROVIDERS: Emergency Provider Family Medicine; PCP Family Medicine
DX: J44.1 Chronic obstructive pulmonary disease with (acute) exacerbation (principal); F17.200 Nicotine dependence, unspecified, uncomplicated; Z91.148 Patient's other noncompliance with medication regimen for other reason
CPT/HCPCS: 94640; 99283; 99284; A9270; J7512

== ENCOUNTER 2024-09-16 17:18 | Emergency (ER) | payer MEDICAID, SELFPAY ==
[2024-09-16 17:21] VITALS: BP 163/107; PULSE 80; RESP 18; TEMP 36.7; O2SAT 96; BMI 24.4
--- OUTSIDE RECORDS SUMMARY | 2024-09-16 17:21 | XMS_ITS | Clinical Summary ---
Author Organization [facility] Address [address] [place] [address] Care Team Providers Care Ladle Mechanic Name Role Phone Unavailable Primary Care Provider Unavailabl e Source Comments Patient records contain information from all sites at [facility]. For routine questions regarding patient records, call [phone] during business hours, M-F 8:00 AM - 5:00 PM Central Time. 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
--- OUTSIDE RECORDS SUMMARY | 2024-09-16 17:21 | XMS_ITS | Clinical Summary ---
Author Organization [facility] Address [address] [place] [id number] Care Team Providers Care Edge Setter Name Role Phone Vlad Reyes MD Unavailable [phone] Pcp, No Primary Care Provider Unavailabl e [...] on file Legal Sex Male 5:27 AM MELTER LOADER Gender Identity Not on file Sexual Orientation [...] Body Mass Index 23.85 03/18/2017 8:07 AM MELTER LOADER Plan of Treatment Health Maintenance Due Date Last Done Comments HIV for age 15-65 1981 Hepatitis C screening for ag e 18-79 1984 Hepatitis B series for 19+ ( 1 of 3 - 19+ 3-dose series) 1985 Colonoscopy through age 75 07/26/2011 Zoster (shingles) [...] Additional history exists Tetanus booster 07/06/2023 07/05/2013, 04/0 02/2007 [facility] COVID-19 vaccine series (2023- season) 2023 Influenza Vaccine (#1) 2024 7, 10/18/2015, 11/30/2014, Additional history exists Procedures Procedure Name Priority Date/Time Associated Diagnosis Comments LIPID PANEL W REFLEX MEASURED LDL Routine 01/05/2017 10:47 AM MELTER LOADER Lipid screening from Last 3 Months or Most Recently Relevant to Health Maintenance Results * LIPID PANEL W REFLEX MEASURED LDL (01/05/2017 10:47 AM MELTER LOADER) CHOLESTEROL,TOTAL 195 100 - 199 mg/dL 01/05/2017 5:15 PM MELTER LOADER [facility] TRIGLYCERIDES 63 <150 mg/dL 01/05/2017 5:15 PM MELTER LOADER [facility] HDL CHOLESTEROL 75 >40 mg/dL 7 5:15 PM MELTER LOADER [facility] NON-HDL CHOLESTEROL 120 <145 mg/dl 01/05/2017 5:15 PM MELTER LOADER [facility] CHOL/HDL RATIO 2.60 <4.50 01/05/2017 5:15 PM MELTER LOADER [facility] LDL CHOLESTEROL 107 <=130 mg/dL 01/05/2017 5:15 PM MELTER LOADER [facility] PROVIDER ORDERED STATUS RANDOM 01/05/2017 5:15 PM MELTER LOADER [facility] Blood BLOOD SPECIMEN / Unknown Venipuncture / Unknown 01/05/2017 10:47 AM MELTER LOADER 01/05/2017 10:48 AM MELTER LOADER us Chelsi Ocampo DO CHEMISTRY Final Resu lt [facility] [address] [place] [address], from Last 3 Months or Most Recently Relevant to Health Maintenance Insurance [employer] Care Teams Edge Setter Relationship Specialty Start Date End Date Pcp, No . PCP - General 01/23/18 Vlad Reyes MD Orthopedics Surgery - Orthopedic 11/02/12
--- NOTE | 2024-09-16 17:33 | CRLHL7_ITS ---
For Patients: As a result of the Cures Act, medical imaging exams and procedure reports are released immediately into your electronic medical record. You may view this report before your referring provider. If you have questions, please contact your health care provider. INDICATION: Fall, loss of consciousness, head laceration. TECHNIQUE: CT of the head without contrast. Coronal and sagittal reformats. Bone and soft tissue algorithms. COMPARISON: CT 08/14/2019. FINDINGS: No acute intracranial hemorrhage or extra-axial collection. No evidence of acute cortical infarction. No mass effect or midline shift. Mild generalized parenchymal volume loss. Mild regions of decreased attenuation within the periventricular and subcortical white matter of both cerebral hemispheres most likely reflect chronic microvascular ischemic disease and age related change in this patient. Vascular calcifications within the carotid siphons. Orbital contents are normal. No calvarial fractures. No lytic or sclerotic osseous lesions within the calvarium or skull base. Scalp and other imaged soft tissue structures are normal. Mastoid air cells are clear. Complete opacification of the left maxillary sinus and partial opacification of the left and right ethmoid air cells. Osteoneogenesis along the dillard of the maxillary sinuses. Rightward deviation of the nasal septum. An ovoid opacity measuring approximately 1.4 cm is partially visualized along the right face, question posttraumatic injury/hematoma at this location. IMPRESSION: 1. No acute intracranial abnormality. 2. An ovoid opacity measuring approximately 1.4 cm is partially visualized along the right face, question posttraumatic injury/hematoma at this location. 3. Complete opacification of left maxillary sinus due to chronic sinus disease. Please note that all CT scans at this facility use dose modulation, iterative reconstruction, and/or weight-based dosing when appropriate to reduce radiation dose to as low as reasonably achievable. Dictated by Los Silva MD @ 09/16/2024 6:19:17 PM (Electronically Signed)
--- NOTE | 2024-09-16 17:33 | CRLHL7_ITS ---
For Patients: As a result of the 21st Century Cures Act, medical imaging exams and procedure reports are released immediately into your electronic medical record. You may view this report before your referring provider. If you have questions, please contact your health care provider. Indication: FALL, LOC, HEAD LAC Technique: Noncontrast axial CT of the cervical spine with coronal and sagittal reformats are provided. Comparison: No prior studies available for comparison at this institution. Findings: Acute displaced type 3 dens fracture with 3 millimeter anterolisthesis of the dens with respect to the C2 vertebral body. 5 mm displaced fracture involving the left C2 lateral mass and 2 mm displaced fracture involving the right C2 lateral mass with intra-articular involvement. The right-sided fracture extends through the right pars interarticularis and involves the foramen transversarium. CTA neck recommended to evaluate vertebral artery. Acute T1 anterior wedging compression fracture with 33 percent loss of vertebral height. Reversal of normal cervical lordosis. Grade 1 anterolisthesis at C4-5, C5-6, C6-7 and C7-T1. No aggressive osseous lesions. C1-2: No spinal canal stenosis. C2-3: No significant spinal canal stenosis or neural foramen narrowing. C3-4: Advanced left facet arthrosis and uncovertebral joint hypertrophy. [id number] left neural foramen narrowing. No significant spinal canal stenosis or neural foraminal narrowing. C4-5: Advanced left facet arthrosis and uncovertebral joint hypertrophy. Moderate left neural foraminal narrowing. No spinal canal stenosis or right neural foraminal narrowing. C5-6: Grade 1 anterolisthesis. Advanced left and moderate right facet arthrosis. Mild left neural foraminal narrowing. No significant spinal canal stenosis or right neural foraminal narrowing. C6-7: Advanced left facet arthrosis. No significant spinal canal stenosis or neural foraminal narrowing. C7-T1: Moderate facet arthrosis. No significant spinal canal stenosis or neural foraminal narrowing. Impression : 1. Acute displaced type 3 dens fracture with 3 millimeter anterolisthesis of the dens with respect to the C2 vertebral body. 5 mm displaced fracture involving the left C2 lateral mass and 2 mm displaced fracture involving the right C2 lateral mass with intra-articular involvement. The right-sided fracture extends through the right pars interarticularis and involves the foramen transversarium. CTA neck recommended to evaluate vertebral artery. 2. Acute T1 anterior wedging compression fracture with 33 percent loss of vertebral height. Please note that all CT scans at this facility use dose modulation, iterative reconstruction, and/or weight-based dosing when appropriate to reduce radiation dose to as low as reasonably achievable. Dictated by Los Silva MD @ 09/16/2024 6:24:32 PM (Electronically Signed)
--- NOTE | 2024-09-16 17:34 | ED.FALL ---
HPI - Fall General Chief Complaint: Fall/Minor Trauma Stated Complaint: Fell, hit head, cut left side Time Seen by Provider: 09/16/24 17:26 History of Present Illness HPI Narrative: This 59-year-old male comes in because of head and neck injury. He was sitting and began to cough related to his COPD. He coughed vigorously and states that this caused him to lose consciousness briefly. He fell hitting his head on the left side. He has a laceration above his left ear. He is reporting a mild headache. He is not showing any sign of neurologic deficit. He does report some neck stiffness but no midline tenderness. He is not on anticoagulants. Related Data Home Medications ?Medication ?Instructions ?Recorded ?Confirmed aspirin 81 mg tablet,delayed 81 mg PO DAILY 01/17/22 09/16/24 release Previous Rx's ?Medication ?Instructions ?Recorded albuterol sulfate 90 mcg/actuation 2 puff inhalation Q4H PRN COPD 09/29/22 aerosol inhaler #8.5 grams folic acid 1 mg tablet 1 mg PO QDAY #90 tabs 04/23/23 methotrexate sodium 2.5 mg tablet 15 mg (6 x 2.5 mg) PO QWEEK #78 04/23/23 tabs naproxen 500 mg tablet 500 mg PO BID #60 tabs 04/23/23 metoprolol succinate 200 mg 200 mg PO QDAY #90 tabs 05/08/23 tablet,extended release 24 hr hydrochlorothiazide 25 mg tablet 25 mg PO DAILY #90 tabs 08/27/23 budesonide 160 mcg-glycopyr 9 2 inh inhalation BID #10.7 grams 03/14/24 mcg-formot 4.8 mcg/actuation HFA inhaler (Breztri [employer] Cardphere) ipratropium 0.5 mg-albuterol 3 mg 3 ml inhalation TID #180 mL 04/13/24 (2.5 mg base)/3 mL nebulization soln ipratropium 0.5 mg-albuterol 3 mg 3 ml inhalation Q6H PRN #180 mL 05/22/24 (2.5 mg base)/3 mL nebulization soln albuterol sulfate 2.5 mg/0.5 mL 2.5 mg (0.5 mL) inhalation Q4H PRN 05/23/24 solution for nebulization shortness of breath or wheezing #30 ea inhalational spacing device #1 ea 05/23/24 (BreatheRite MDI Spacer) Allergies Allergy/AdvReac Type Severity Reaction Status Date / Time No Known Drug Allergies Allergy Verified 09/16/24 17:25 Review of Systems Status of ROS: Reports: 10 or more systems reviewed and unremarkable except as noted in History and below Narrative: Constitutional: No fevers, no weight gain or loss. Eyes: No discharge. No vision changes. HENT: No congestion, no sore throat, no ear pain. Cardiovascular: No chest pain, no palpitations. Respiratory: No shortness of breath, no wheezes, no cough. Gastrointestinal: No abdominal pain, no vomiting, no diarrhea. Genitourinary: No dysuria, no hematuria. Musculoskeletal: Normal range of motion. Skin: No rashes, no pruritis. Neurological: No dizziness, weakness, sensory change, speech change. Endo/Heme/Allergies: No bruising or bleeding. No polydipsia. Pysch: no suicidality, no anxiety, no insomnia. All other systems reviewed and are negative. [facility] Medical History Closed fracture of left great toe ?S92.402A - Displaced unspecified fracture of left great toe, initial encounter for closed fracture (ICD-10) COVID-19 ?U07.1 - COVID-19 (ICD-10) Primary hypertension ?I10 - Essential (primary) hypertension (ICD-10) Psoriasis ?L40.9 - Psoriasis, unspecified (ICD-10) Scalp psoriasis ?L40.9 - Psoriasis, unspecified (ICD-10) Tobacco abuse ?Z72.0 - Tobacco use (ICD-10) Tension headache ?G44.209 - Tension-type headache, unspecified, not intractable (ICD-10) Paresthesia of both feet ?R20.2 - Paresthesia of skin (ICD-10) Generalized anxiety disorder (07/10/15) ?F41.1 - Generalized anxiety disorder (ICD-10) Fracture of rib ?S22.39XA - Fracture of one rib, unspecified side, initial encounter for closed fracture (ICD-10) Dental abscess ?K04.7 - Periapical abscess without sinus (ICD-10) Community acquired pneumonia ?J18.9 - Pneumonia, unspecified organism (ICD-10) Calculus of kidney ?N20.0 - Calculus of kidney (ICD-10) Alcohol abuse ?F10.10 - Alcohol abuse, uncomplicated (ICD-10) COPD (chronic obstructive pulmonary disease) ?J44.9 - Chronic obstructive pulmonary disease, unspecified (ICD-10) Surgical History History of arthroscopy of right knee (2016) ?Z98.890 - Other specified postprocedural states (ICD-10) Social History Narrative: Smoker, seeking disability, last worked 04/09/2023 What is your current living situation?: I presently have a place to live Problems where you live: no known problems In the past 12 months, utilities in danger of being shut off: no In past 12 months, lack of transportation kept you from medical appts, meetings, work, or getting things needed for daily living: no In the past 12 mos, have been you worried that your food would run out before you had money to buy more?: never true In the past 12 mos, the food you bought just didn't last and you didn't have money to buy more?: never true Smoking Status: Current every day smoker What tobacco products do you use: cigarettes Smoking packs per day: 0.5 Smoking cigarettes per day: 10.0 Years smoked: 20 Smoking pack-years: 10.00 Do you use any of these nicotine containing products: None Second hand tobacco smoke exposure: No How often do you have a drink containing alcohol: 2-4 times a month How many standard drinks containing alcohol do you have on a typical day: 5 or 6 How often do you have six or more drinks on one occasion: Weekly AUDIT-C Alcohol total score: 7 Non-prescribed substance use: denies use How often does anyone, including family, friends and others, physically hurt you: never How often does anyone, including family, friends and others, insult or talk down to you: never How often does anyone, including family, friends and others, threaten you with harm: never How often does anyone, including family, friends and others, scream or curse at you: never service: No Exam Narrative: Exam Narrative: Constitutional: Well-developed, well-nourished, no acute distress. HEENT: 3 cm linear laceration on the left side the head above his left ear. No underlying hematoma. Neck: Normal range of motion. No midline tenderness. Decreased range of motion due to stiffness. Heart: Regular. No murmurs. Normal rate. Intact distal pulses. Lungs: Clear to auscultation. No chest discomfort. No wheezes, rhonchi, or rales. Abdomen: Normal bowel sounds. Nontender. No rebound tenderness. Genitalia: Deferred. Back: No midline tenderness. Normal range of motion. Extremities: Normal range of motion. No injury. Skin: Intact. No rash. Warm. No erythema or pallor. Neurologic: No altered sensation. No weakness. Alert and oriented. Psychiatric: No suicidality. No anxiety or depression. No insomnia. Nursing notes and vitals signs are reviewed. Const: Vital Signs, click to edit/add: Vital Signs - 24 hr 09/16/24 17:21 Temperature 98.0 F Pulse Rate [Right Pulse Oximeter] 80 Respiratory Rate 18 Blood Pressure [Ri ght Upper Arm] 163/107 H Pulse Oximetry 96 Oxygen Delivery Me thod Room Air Course Vital Signs Vital signs: Initial Vital Signs Temperature 98.0 F 09/16/24 17:21 Temperature Source Temporal Artery Scan 09/16/24 17:21 Pulse Rate 80 09/16/24 17:21 Pulse Rhythm Regular 09/16/24 17:21 Pulse Strength 3+ Normal 09/16/24 17:21 Respiratory Rate 18 09/16/24 17:21 Blood Pressure 163/107 H 09/16/24 17:21 Blood Pressure Mean 125 H 09/16/24 17:21 Blood Pressure Position Sitting 09/16/24 17:21 Pulse Oximetry 96 09/16/24 17:21 Oxygen Delivery Method Room Air 09/16/24 17:21 Vital Signs Temperature 98.0 F 09/16/24 17:21 Pulse Rate 80 09/16/24 17:21 Respiratory Rate 18 09/16/24 17:21 Blood Pressure 163/107 H 09/16/24 17:21 Pulse Oximetry 96 09/16/24 17:21 Oxygen Delivery Method Room Air 09/16/24 17:21 Temperature 98.0 F 09/16/24 17:21 Pulse Rate 80 09/16/24 17:21 Respiratory Rate 18 09/16/24 17:21 Blood Pressure 163/107 H 09/16/24 17:21 Pulse Oximetry 96 09/16/24 17:21 Oxygen Delivery Method Room Air 09/16/24 17:21 MDM - Fall MDM Narrative Medical decision making narrative: This patient comes in reporting neck pain and loss of consciousness as described above. I did obtain CT imaging of his head and C-spine. There is no intracranial bleed but there are several findings on the CT scan of his neck that show an unstable condition. The patient is maintaining normal vital signs and has normal neurologic function. He is in a cervical collar. I did speak with a doctor on-call at [facility] emergency room, Dr. Billy, who agreed to his transfer there for further evaluation and treatment. Patient did receive an intramuscular injection of morphine 10 mg. He has an IV in place. Further studies are necessary but these can be arranged at [facility] as I discussed these plans with the physician there. Time spent in critical care of this patient was [address] scan - head: Radiologist's impression: 1. No acute intracranial abnormality. 2. An ovoid opacity measuring approximately 1.4 cm is partially visualized along the right face, question posttraumatic injury/hematoma at this location. 3. Complete opacification of left maxillary sinus due to chronic sinus disease. CT Cervical Spine: Radiologist's impression: 1. Acute displaced type 3 dens fracture with 3 millimeter anterolisthesis of the dens with respect to the C2 vertebral body. 5 mm displaced fracture involving the left C2 lateral mass and 2 mm displaced fracture involving the right C2 lateral mass with intra-articular involvement. The right-sided fracture extends through the right pars interarticularis and involves the foramen transversarium. CTA neck recommended to evaluate vertebral artery. 2. Acute T1 anterior wedging compression fracture with 33 percent loss of vertebral height. Critical Care Time Critical Care Time Critical Care Time: Yes Attestation: The patient required my highest level preparedness to intervene emergently and I personally spent this critical care time directly and personally managing the patient. This critical care time included: Obtaining a history; Examining the patient; Pulse oximetry; Ordering and reviewing of studies; Arranging urgent treatment with development of a management plan; Evaluation of patients response to treatment; Frequent reassessment discussions with other providers. This critical care time was performed to assess and manage the high probability of imminent life-threatening deterioration that could result in multiorgan failure. It was exclusive of separate billable procedures and treating other patients and teaching time. Total Critical Care Time in Minutes: 30 Discharge Plan Discharge Clinical Impression: Fracture of neck [facility] Condition: Unchanged
[2024-09-16] MEDS: IPRAT-ALBUT 0.5-2.5 MG/3 ML NEB 1 NEB IH (19:28)
[2024-09-16 20:03] VITALS: BP 151/105; PULSE 68; RESP 18; TEMP 37.1; O2SAT 94
== END 2024-09-16 20:05 | disposition short-term general hospital (02) ==
PROVIDERS: Emergency Provider Emergency Medicine Emergency Medical Services; PCP Family Medicine
DX: S12.9XXA Fracture of neck, unspecified, initial encounter (principal); S01.81XA Laceration without foreign body of other part of head, initial encounter; J44.9 Chronic obstructive pulmonary disease, unspecified; F17.210 Nicotine dependence, cigarettes, uncomplicated; W19.XXXA Unspecified fall, initial encounter
CPT/HCPCS: 70450; 72125; 94640; 99284; 99291; J2270

== ENCOUNTER 2024-09-16 19:45 | Outpatient (CLI) | payer MEDICAID, SELFPAY | END 2024-09-16 19:46 | disposition home or self-care (01) | LOC: AMB 09-19 12:31 | PROVIDERS: PCP Family Medicine; Visit Provider Family Medicine | DX: S12.9XXA Fracture of neck, unspecified, initial encounter (principal) | CPT/HCPCS: A0425; A0429 ==